=== PATIENT | male | born 1940 | race Caucasian/White ===

== ENCOUNTER 2018-08-30 23:43 | Inpatient (IN) | payer MEDICARE ==
[~2018-08-30] VITALS: Ht 172.7 cm; Wt 77.7 kg
[2018-08-31 00:01] LABS: BASOPHILS # (AUTO) 0.1 (0.0-0.1); BASOPHILS % 0.6 % (0.0-1.0); EOSINOPHILS # (AUTO) 0.6 (0.0-0.4); EOSINOPHILS % 4.3 % (0.0-6.0); HEMOGLOBIN 7.6 g/dL (14.0-18.0); LYMPHOCYTES # (AUTO) 3.5 (1.0-3.2); LYMPHOCYTES % 26.3 % (18.0-39.1); MEAN CORPUSCULAR HEMOGLOBIN 28.1 pg (28-32); MEAN CORPUSCULAR VOLUME 85.2 fL (81-99); MONOCYTES # (AUTO) 0.8 (0.2-0.8); MONOCYTES % 5.9 % (4.4-11.3); NEUTROPHILS # (AUTO) 8.4 (2.1-6.9); NEUTROPHILS % 62.5 % (38.7-80.0); PLATELET COUNT 395 x10e3/uL (140-360); RED CELL DISTRIBUTION WIDTH 16.3 % (11.7-14.4)
[2018-08-31] MEDS ORDERED: PANTOPRAZOLE 40 MG 10ML VIAL IV STA (01:17)
[2018-08-31] MEDS ORDERED: ACETAMINOPHEN 325 MG TAB PO STA (01:17)
[2018-08-31] MEDS ORDERED: PHYTONADIONE 10 MG/ML AMP SC ONE (01:30)
[2018-08-31] MEDS ORDERED: DIPHENHYDRAMINE HCL INJ 50 MG/ML VIAL IV ONE (01:30)
--- OUTSIDE RECORDS SUMMARY | 2018-08-31 01:38 | XMS REPORT | Clinical Summary ---
Author Author [facility] Address Unknown Phone Unavailable Care Team Providers Care Medical Surgical Tech Name Role Phone Jordan Kang MD PCP Allergies No Known Allergies Medications End Date Status Medication Sig Dispensed Refills Start Date Active donepezil (ARICEPT) 10 MG Take 10 mg by 0 tablet mouth nightly. Active memantine (NAMENDA) 10 MG Take 10 mg by 0 tablet mouth daily. Active atorvastatin (LIPITOR) 20 Take 20 mg by 0 MG tablet mouth daily. Default OP ins Active glimepiride (AMARYL) 1 MG Take 1 mg by 0 tablet mouth daily before breakfast. Active tamsulosin (FLOMAX) 0.4 Take 0.4 mg 0 mg capsule,extended by mouth release 24hr daily. Active aspirin (ECOTRIN) 81 MG Take 81 mg by 0 enteric coated tablet mouth daily. Active carBAMazepine (EPITOL) Take 200 mg 0 200 mg tablet by mouth 2 (two) times a day. Active levETIRAcetam (KEPPRA) Take 500 mg 0 500 MG tablet by mouth 2 (two) times a day. Active mirabegron 25 mg tablet Take 25 mg by 0 extended release 24 hr mouth every morning. Active metFORMIN (GLUCOPHAGE) Take 1,000 mg 0 09/17/ 1,000 mg tablet by mouth 2 8 (two) times a day with meals. Active clonIDINE (CATAPRES) 0.1 Take 0.1 mg 0 MG tablet by mouth every 8 (eight) hours as needed for high blood pressure (for BP 140/90). Active hydrALAZINE (APRESOLINE) Take 25 mg by 0 25 MG tablet mouth every 8 (eight) hours as needed (FOR BP). HOLD FOR SBP LESS THAN 110,HR LESS THAN 60 Active oxybutynin (DITROPAN) 5 Take 5 mg by 0 MG tablet mouth 2 (two) times a day. 09/09/2017 Discontinued sulfamethoxazole-trimetho Take 1 tablet 0 prim (BACTRIM DS) 800-160 by mouth 2 mg per tablet (two) times a day. 09/09/2017 Discontinued sertraline (ZOLOFT) 50 MG Take 50 mg by 0 tablet mouth daily. 09/09/2017 Discontinued metFORMIN (GLUCOPHAGE) Take 1,000 mg 0 1,000 mg tablet by mouth 2 (two) times a day with meals. 05/06/2018 Discontinued lisinopril Take 20 mg by 0 (PRINIVIL,ZESTRIL) 20 mg mouth daily. tablet 09/09/2017 Discontinued oxybutynin XL Take 15 mg by 0 (DITROPAN-XL) 5 MG 24 hr mouth daily. tablet 09/09/2017 Discontinued clonIDINE (CATAPRES-TTS) Place 1 patch 0 0.1 mg/24 hr on the skin once a week. 09/26/2017 Discontinued clonIDINE (CATAPRES) 0.1 Take 0.1 mg 0 MG tabletIndications: by mouth high blood pressure daily as needed for high blood pressure. 09/26/2017 Discontinued metFORMIN (GLUCOPHAGE) Take 500 mg 0 500 mg tablet by mouth 2 (two) times a day with meals. 10/29/2017 clonIDINE (CATAPRES) 0.1 Take 1 tablet 0 MG tablet (0.1 mg 8 total) by mouth every 6 (six) hours as needed for high blood pressure for up to 30 days. 10/29/2017 hydrALAZINE (APRESOLINE) Take 1 tablet 90 tablet 0 25 MG tablet (25 mg total) 8 by mouth every 8 (eight) hours for 30 days. 10/29/2017 ipratropium-albuterol Take 3 mL by 0 (DUO-NEB) 0.5-2.5 mg/mL nebulization 8 nebulizer every 6 (six) hours as needed for wheezing for up to 30 days. 11/06/2017 clindamycin (CLEOCIN) 150 Take 2 42 capsule 0 MG capsule capsules (300 8 mg total) by mouth 3 (three) times a day for 7 days. 12/31/2017 cephalexin (KEFLEX) 500 Take 1 0 MG capsule capsule (500 8 mg total) by mouth 2 (two) times a day for 7 days. 03/18/2018 finasteride (PROSCAR) 5 Take 1 tablet 30 tablet 0 mg tablet (5 mg total) 8 by mouth nightly for 30 days. 02/21/2018 amoxicillin-pot Take 1 tablet 0 clavulanate (AUGMENTIN) by mouth 2 8 875-125 mg per tablet (two) times a day for 5 days. 04/04/2018 liver oil-zinc oxide Apply 40 g 1 (DESITIN) ointment topically as 8 needed for irritation for up to 5 days. 06/06/2018 amLODIPine (NORVASC) 10 Take 1 tablet 30 tablet 0 mg tablet (10 mg total) 9 by mouth daily for 30 days. 05/08/2018 piperacillin-tazobactam Infuse 3.375 6 each 0 (ZOSYN) 3.375 gram in 50 g into a 9 mL Mini-Bag Plus venous catheter every 8 (eight) hours for 2 days. 05/31/2018 ciprofloxacin (CIPRO) 500 Take 1 tablet 14 tablet 0 MG tablet (500 mg 9 total) by mouth 2 (two) times a day for 7 days. Active Problems Problem Noted Date UTI (urinary tract infection) 05/04/2018 Acute cystitis without hematuria 05/02/2018 Acute metabolic encephalopathy 02/14/2018 Urinary retention due to benign prostatic hyperplasia 02/14/2018 Chronic suprapubic catheter 02/14/2018 Pyelonephritis due to Escherichia coli 02/13/2018 Pyelonephritis 02/12/2018 Closed fracture of lower end of left ulna with routine healing 11/03/2017 Weakness 09/26/2017 Chest pain, rule out acute myocardial infarction 09/09/2017 Hypertension 05/10/2017 Alzheimer disease 05/10/2017 Diabetes mellitus 05/10/2017 Transient cerebral ischemia 05/09/2017 Seizure 03/06/2017 Encounters Care Team Description Date Type Specialty Avery Tyler MD Urinary tract infection associated with catheterization of urinary tract, unspecified indwelling urinary catheter type, initial encounter (HCC) (Primary Dx) 05/24/2018 Emergency Emergency Medicine Gwyn Mustafa MD Yerramadha, Muralidhar Reddy, MD Neela, Rekha Srinivas, MD Acute cystitis without hematuria (Primary Dx); Acute encephalopathy; Essential hypertension 05/02/2018 [facility] Internal Medicine - Encounter 05/06/2018 05/02/2018 Travel Gwyn Mustafa MD Urinary obstruction (Primary Dx); Essential hypertension 04/14/2018 Emergency Emergency Medicine Shelton Ashley DO Cohn catheter problem, initial encounter (HCC) (Primary Dx) 04/11/2018 Emergency Emergency Medicine Turner Christiansen MD Urinary retention (Primary Dx); Irritant dermatitis 03/30/2018 Emergency Emergency Medicine - 03/31/2018 Shelton Ashley DO Yerramadha, Muralidhar Reddy, MD Pyelonephritis (Primary Dx); Urinary retention; Hypertension, uncontrolled 02/11/2018 [facility] Internal Medicine - Encounter 02/16/2018 Tanner Escamilla MD Yerramadha, Muralidhar Reddy, MD Weakness (Primary Dx); Fall, initial encounter; Urinary tract infection without hematuria, site unspecified; Abrasion of knee, unspecified laterality, initial encounter 12/21/2017 Emergency General Internal Medicine - 12/24/2017 Boyd Hernandez MD Laceration of left hand without foreign body, initial encounter (Primary Dx) 11/04/2017 Office Visit Orthopedic Surgery Garth Jiménez MA Closed fracture of distal end of left ulna with routine healing, unspecified fracture morphology, subsequent encounter (Primary Dx) 11/03/2017 Orders Only Sports Medicine Jennifer Rick MD Laceration of left hand without foreign body, subsequent encounter (Primary Dx); Wound dehiscence 10/30/2017 Emergency Emergency Medicine Agustín Sanchez, ECONOMIC RESEARCH ANALYSTHortenciaC Rodney Pete MD Al-Lahiq, Maha, MD Weakness (Primary Dx); Neuropathy; Late onset Alzheimer's disease with behavioral disturbance 09/26/2017 Hospital General Internal Medicine - Encounter 09/29/2017 Shelton Ashley DO Yerramadha, Muralidhar Reddy, MD Chest pain, rule out acute myocardial infarction (Primary Dx); Seizure; Transient cerebral ischemia, unspecified type; Essential hypertension; Late onset Alzheimer's disease with behavioral disturbance; Type 2 diabetes mellitus with diabetic autonomic neuropathy, with long-term current use of insulin 09/09/2017 Emergency General Internal Medicine - 09/11/2017 after 08/30/2017 Immunizations Name Dates Previously Given Next Due Tdap 12/21/2017 (Deferred: - per EMR pt recvd 07/02/2017), 07/02/2017 Family History Medical History Relation Name Comments Diabetes Father Alcohol abuse Mother Stroke Mother Relation Name Status Comments Father Mother Social History Date Tobacco Use Types Packs/Day Years Used Former Smoker Cigarettes 3 Smokeless Tobacco: Never Used Comments: Stopped late Alcohol Use Drinks/Week oz/Week Comments No Alcohol Habits Answer Date Recorded How often do you have a drink containing alcohol? Never 05/02/2018 How many drinks containing alcohol do you have on Not asked a typical day when you are drinking? How often do you have six or more drinks on one Not asked occasion? Sex Assigned at Date Recorded Not on file Industry Job Start Date Occupation Not on file Not on file Not on file Travel End Travel History Travel Start No recent travel history available. Last Filed Vital Signs Time Taken Vital Sign Reading 05/24/2018 3:29 PM [employer] Blood Pressure 189/86 05/24/2018 3:29 PM [employer] Pulse 76 05/24/2018 2:00 PM [employer] Temperature 36.3 C (97.3 F) 05/24/2018 3:29 PM [employer] Respiratory Rate 15 05/24/2018 3:29 PM [employer] Oxygen Saturation 99% - Inhaled Oxygen - Concentration 05/24/2018 1:58 PM [employer] Weight 87.5 kg (193 lb) 05/24/2018 1:58 PM [employer] Height 193 cm (6' 4") 05/24/2018 1:58 PM [employer] Body Mass Index 23.49 Plan of Treatment Health Maintenance Due Date Last Done Comments DIABETIC RETINAL EYE EXAM 1940 DIABETIC FOOT EXAM 02/16/1948 URINE MICROALBUMIN 02/16/1948 SHINGLES VACCINES (#1) 02/16/1988 65+ PNEUMOCOCCAL VACCINE 2003 (1 of 2 - PCV13) PNEUMOCOCCAL 2003 POLYSACCHARIDE VACCINE AGE 65 AND OVER INFLUENZA VACCINE 11/17/2018 Procedures Comments Procedure Name Priority Date/Time Associated Diagnosis GRAM STAIN Routine 05/24/2018 2:42 PM [employer] URINE CULTURE Routine 05/24/2018 2:42 PM [employer] URINALYSIS SCREEN AND Routine 05/24/2018 MICROSCOPY, WITH REFLEX 2:20 PM [employer] TO CULTURE POC GLUCOSE Routine 05/06/2018 4:53 PM [employer] POC GLUCOSE Routine 05/06/2018 11:32 AM [employer] POC GLUCOSE Routine 05/06/2018 6:08 AM [employer] ESTIMATED GFR Routine 05/06/2018 5:58 AM [employer] HC COMPLETE BLD COUNT Routine 05/06/2018 W/AUTO DIFF 5:58 AM [employer] BASIC METABOLIC PANEL Routine 05/06/2018 5:58 AM [employer] POC GLUCOSE Routine 05/05/2018 9:03 PM [employer] POC GLUCOSE Routine 05/05/2018 5:44 PM [employer] CLOSTRIDIUM DIFFICILE Routine 05/05/2018 TOXIN 2:55 PM [employer] POC GLUCOSE Routine 05/05/2018 11:21 AM [employer] POC GLUCOSE Routine 05/05/2018 6:33 AM [employer] ECHOCARDIOGRAM 2D Routine 05/04/2018 COMPLETE W MMODE SPECTRAL 5:36 PM [employer] COLOR DOPPLER ([id number]) POC GLUCOSE Routine 05/04/2018 3:29 PM [employer] POC GLUCOSE Routine 05/04/2018 11:39 AM [employer] POC GLUCOSE Routine 05/04/2018 6:10 AM [employer] ESTIMATED GFR Routine 05/04/2018 4:52 AM [employer] HC COMPLETE BLD COUNT Routine 05/04/2018 W/AUTO DIFF 4:52 AM [employer] BASIC METABOLIC PANEL Routine 05/04/2018 4:52 AM [employer] POC GLUCOSE Routine 05/03/2018 5:24 PM [employer] POC GLUCOSE Routine 05/03/2018 12:43 PM [employer] TROPONIN Timed 05/02/2018 10:30 PM [employer] GRAM STAIN Routine 05/02/2018 6:59 PM [employer] URINE CULTURE Routine 05/02/2018 6:59 PM [employer] URINALYSIS SCREEN AND Routine 05/02/2018 MICROSCOPY, WITH REFLEX 6:40 PM [employer] TO CULTURE TROPONIN Timed 05/02/2018 5:28 PM [employer] XR CHEST 1 VW STAT 05/02/2018 4:11 PM [employer] ECG ED PRELIMINARY Routine 05/02/2018 INTERPRETATION 2:59 PM [employer] ESTIMATED GFR STAT 05/02/2018 2:05 PM [employer] TROPONIN STAT 05/02/2018 2:05 PM [employer] CREATINE KINASE, TOTAL STAT 05/02/2018 (CPK) 2:05 PM [employer] COMPREHENSIVE METABOLIC STAT 05/02/2018 PANEL 2:05 PM [employer] PROTHROMBIN TIME WITH INR STAT 05/02/2018 2:05 PM [employer] HC COMPLETE BLD COUNT STAT 05/02/2018 W/AUTO DIFF 2:05 PM [employer] ECG 12-LEAD STAT 05/02/2018 1:50 PM [employer] URINALYSIS SCREEN AND STAT 04/14/2018 MICROSCOPY, WITH REFLEX 5:30 PM [employer] TO CULTURE URINE CULTURE STAT 04/14/2018 5:30 PM [employer] CT ABDOMEN PELVIS W STAT 04/14/2018 CONTRAST 4:59 PM [employer] URINALYSIS SCREEN AND STAT 04/14/2018 MICROSCOPY, WITH REFLEX 2:40 PM [employer] TO CULTURE GRAM STAIN STAT 04/14/2018 2:40 PM [employer] URINE CULTURE STAT 04/14/2018 2:40 PM [employer] ESTIMATED GFR STAT 04/14/2018 2:37 PM [employer] HEPATIC FUNCTION PANEL STAT 04/14/2018 2:37 PM [employer] LIPASE LEVEL STAT 04/14/2018 2:37 PM [employer] BASIC METABOLIC PANEL STAT 04/14/2018 2:37 PM [employer] HC COMPLETE BLD COUNT STAT 04/14/2018 W/AUTO DIFF 2:37 PM [employer] POC GLUCOSE Routine 04/14/2018 1:54 PM [employer] URINALYSIS SCREEN AND Routine 03/30/2018 MICROSCOPY, WITH REFLEX 10:09 PM [employer] TO CULTURE GRAM STAIN Routine 03/30/2018 10:09 PM [employer] URINE CULTURE Routine 03/30/2018 10:09 PM [employer] ESTIMATED GFR STAT 03/30/2018 10:01 PM [employer] COMPREHENSIVE METABOLIC STAT 03/30/2018 PANEL 10:01 PM [employer] CBC HEMOGRAM STAT 03/30/2018 10:01 PM [employer] POC GLUCOSE Routine 02/16/2018 4:45 PM CDT POC GLUCOSE Routine 02/16/2018 11:42 AM CDT POC GLUCOSE Routine 02/16/2018 5:49 AM CDT ESTIMATED GFR Routine 02/16/2018 5:42 AM CDT HC COMPLETE BLD COUNT Routine 02/16/2018 W/AUTO DIFF 5:42 AM CDT BASIC METABOLIC PANEL Routine 02/16/2018 5:42 AM CDT POC GLUCOSE Routine 2018 8:06 PM CDT POC GLUCOSE Routine 2018 4:16 PM CDT POC GLUCOSE Routine 2018 11:32 AM CDT POC GLUCOSE Routine 2018 5:55 AM CDT ESTIMATED GFR Routine 2018 5:35 AM CDT HC COMPLETE BLD COUNT Routine 2018 W/AUTO DIFF 5:35 AM CDT BASIC METABOLIC PANEL Routine 2018 5:35 AM CDT POC GLUCOSE Routine 02/14/2018 7:23 PM CDT POC GLUCOSE Routine 02/14/2018 4:39 PM CDT POC GLUCOSE Routine 02/14/2018 12:00 PM CDT POC GLUCOSE Routine 02/14/2018 7:14 AM CDT ESTIMATED GFR Routine 02/14/2018 5:49 AM CDT HC COMPLETE BLD COUNT Routine 02/14/2018 W/AUTO DIFF 5:49 AM CDT BASIC METABOLIC PANEL Routine 02/14/2018 5:49 AM CDT POC GLUCOSE Routine 02/13/2018 9:03 PM CDT POC GLUCOSE Routine 02/13/2018 4:30 PM CDT POC GLUCOSE Routine 02/13/2018 11:44 AM CDT ESTIMATED GFR Routine 02/13/2018 6:52 AM CDT HC COMPLETE BLD COUNT Routine 02/13/2018 W/AUTO DIFF 6:52 AM CDT BASIC METABOLIC PANEL Routine 02/13/2018 6:52 AM CDT POC GLUCOSE Routine 02/13/2018 5:58 AM CDT POC GLUCOSE Routine 02/12/2018 7:52 PM CDT POC GLUCOSE Routine 02/12/2018 4:34 PM CDT LACTIC ACID LEVEL, SEPSIS Timed 02/12/2018 - NOW AND REPEAT 2X EVERY 12:30 PM CDT 3 HOURS POC GLUCOSE Routine 02/12/2018 11:58 AM CDT ESTIMATED GFR Routine 02/12/2018 9:20 AM CDT COMPREHENSIVE METABOLIC Routine 02/12/2018 PANEL 9:20 AM CDT HC COMPLETE BLD COUNT Routine 02/12/2018 W/AUTO DIFF 9:20 AM CDT LACTIC ACID LEVEL, SEPSIS Timed 02/12/2018 - NOW AND REPEAT 2X EVERY 9:20 AM CDT 3 HOURS POC GLUCOSE Routine 02/12/2018 6:[address] ABDOMEN PELVIS W STAT 02/12/2018 CONTRAST 12:59 AM CDT ECG 12-LEAD STAT 02/12/2018 12:29 AM CDT ESTIMATED GFR STAT 02/12/2018 12:08 AM CDT LACTIC ACID LEVEL, SEPSIS STAT 02/12/2018 - NOW AND REPEAT 2X EVERY 12:08 AM CDT 3 HOURS LIPASE LEVEL STAT 02/12/2018 12:08 AM CDT COMPREHENSIVE METABOLIC STAT 02/12/2018 PANEL 12:08 AM CDT PARTIAL THROMBOPLASTIN STAT 02/12/2018 TIME (PTT) 12:08 AM CDT PROTHROMBIN TIME WITH INR STAT 02/12/2018 12:08 AM CDT HC COMPLETE BLD COUNT STAT 02/12/2018 W/AUTO DIFF 12:08 AM CDT URINALYSIS SCREEN AND STAT 02/12/2018 MICROSCOPY, WITH REFLEX 12:06 AM CDT TO CULTURE GRAM STAIN STAT 02/12/2018 12:06 AM CDT URINE CULTURE STAT 02/12/2018 12:06 AM CDT POC GLUCOSE Routine 12/24/2017 4:25 PM CDT POC GLUCOSE Routine 12/24/2017 11:02 AM CDT POC GLUCOSE Routine 12/24/2017 5:34 AM CDT POC GLUCOSE Routine 12/23/2017 7:52 PM CDT POC GLUCOSE Routine 12/23/2017 4:29 PM CDT POC GLUCOSE Routine 12/23/2017 11:37 AM CDT POC GLUCOSE Routine 12/23/2017 6:20 AM CDT ZZESTIMATED GFR Routine 12/23/2017 5:06 AM CDT HC COMPLETE BLD COUNT Routine 12/23/2017 W/AUTO DIFF 5:06 AM CDT BASIC METABOLIC PANEL Routine 12/23/2017 5:06 AM CDT POC GLUCOSE Routine 12/22/2017 8:34 PM CDT POC GLUCOSE Routine 12/22/2017 4:34 PM CDT POC GLUCOSE Routine 12/22/2017 11:32 AM CDT POC GLUCOSE Routine 12/22/2017 6:19 AM CDT ZZESTIMATED GFR Routine 12/22/2017 5:23 AM CDT COMPREHENSIVE METABOLIC Routine 12/22/2017 PANEL 5:23 AM CDT HC COMPLETE BLD COUNT Routine 12/22/2017 W/AUTO DIFF 5:23 AM CDT POC GLUCOSE Routine 12/21/2017 7:33 PM CDT POC GLUCOSE Routine 12/21/2017 4:03 PM CDT POC GLUCOSE Routine 12/21/2017 11:49 AM CDT TROPONIN Timed 12/21/2017 10:11 AM CDT XR KNEE 4+ VW RIGHT STAT 12/21/2017 8:25 AM CDT XR KNEE 4+ VW LEFT STAT 12/21/2017 8:25 AM CDT URINALYSIS SCREEN AND Routine 12/21/2017 MICROSCOPY, WITH REFLEX 7:10 AM CDT TO CULTURE URINE CULTURE Routine 12/21/2017 7:10 AM CDT GRAM STAIN Routine 12/21/2017 7:10 AM CDT TROPONIN STAT 12/21/2017 6:55 AM CDT CREATINE KINASE, TOTAL STAT 12/21/2017 (CPK) 6:55 AM CDT ZZESTIMATED GFR STAT 12/21/2017 6:55 AM CDT B NATRIURETIC PEPTIDE STAT 12/21/2017 6:55 AM CDT T4, FREE STAT 12/21/2017 6:55 AM CDT THYROID STIMULATING STAT 12/21/2017 HORMONE 6:55 AM CDT PARTIAL THROMBOPLASTIN STAT 12/21/2017 TIME (PTT) 6:55 AM CDT PROTHROMBIN TIME WITH INR STAT 12/21/2017 6:55 AM CDT COMPREHENSIVE METABOLIC STAT 12/21/2017 PANEL 6:55 AM CDT HC COMPLETE BLD COUNT STAT 12/21/2017 W/AUTO DIFF 6:55 AM CDT ECG 12-LEAD STAT 12/21/2017 6:44 AM CDT ECG ED PRELIMINARY Routine 12/21/2017 INTERPRETATION 6:42 AM CDT ZZESTIMATED GFR STAT 10/30/2017 3:45 PM CDT COMPREHENSIVE METABOLIC STAT 10/30/2017 PANEL 3:45 PM CDT HC COMPLETE BLD COUNT STAT 10/30/2017 W/AUTO DIFF 3:37 PM CDT XR HAND 3+ VW LEFT STAT 10/30/2017 3:08 PM CDT SUTURE REMOVAL Routine 10/30/2017 2:09 PM CDT ZZESTIMATED GFR Routine 09/27/2017 5:37 AM CDT THYROID STIMULATING Routine 09/27/2017 HORMONE 5:37 AM CDT HEMOGLOBIN A1C Routine 09/27/2017 5:37 AM CDT COMPREHENSIVE METABOLIC Routine 09/27/2017 PANEL 5:37 AM CDT HC COMPLETE BLD COUNT Routine 09/27/2017 W/AUTO DIFF 5:37 AM CDT VITAMIN B6 LEVEL, PLASMA Routine 09/26/2017 6:47 PM CDT VITAMIN B1 LEVEL, WHOLE Routine 09/26/2017 BLOOD 6:47 PM CDT VITAMIN B12 LEVEL Routine 09/26/2017 6:47 PM CDT ECG 12-LEAD STAT 09/26/2017 2:[address] HEAD WO CONTRAST STAT 09/26/2017 1:51 PM CDT ZZESTIMATED GFR STAT 09/26/2017 1:33 PM CDT B NATRIURETIC PEPTIDE STAT 09/26/2017 1:33 PM CDT TROPONIN STAT 09/26/2017 1:33 PM CDT COMPREHENSIVE METABOLIC STAT 09/26/2017 PANEL 1:33 PM CDT URINALYSIS SCREEN AND STAT 09/26/2017 MICROSCOPY, WITH REFLEX 1:33 PM CDT TO CULTURE HC COMPLETE BLD COUNT STAT 09/26/2017 W/AUTO DIFF 1:33 PM CDT POC GLUCOSE Routine 09/11/2017 11:20 AM CDT ZZESTIMATED GFR Routine 09/11/2017 6:43 AM CDT BASIC METABOLIC PANEL Routine 09/11/2017 6:43 AM CDT HC COMPLETE BLD COUNT Routine 09/11/2017 W/AUTO DIFF 6:43 AM CDT POC GLUCOSE Routine 09/11/2017 5:44 AM CDT POC GLUCOSE Routine 09/10/2017 8:49 PM CDT POC GLUCOSE Routine 09/10/2017 4:08 PM CDT POC GLUCOSE Routine 09/10/2017 11:07 AM CDT POC GLUCOSE Routine 09/10/2017 7:31 AM CDT TROPONIN Timed 09/09/2017 11:30 PM CDT XR CHEST 1 VW PORTABLE STAT 09/09/2017 8:15 PM CDT ZZESTIMATED GFR STAT 09/09/2017 7:50 PM CDT B NATRIURETIC PEPTIDE STAT 09/09/2017 7:50 PM CDT TROPONIN STAT 09/09/2017 7:50 PM CDT CREATINE KINASE, TOTAL STAT 09/09/2017 (CPK) 7:50 PM CDT BASIC METABOLIC PANEL STAT 09/09/2017 7:50 PM CDT HC COMPLETE BLD COUNT STAT 09/09/2017 W/AUTO DIFF 7:50 PM CDT ECG 12-LEAD STAT 09/09/2017 7:46 PM CDT ECG 12-LEAD STAT 09/09/2017 7:45 PM CDT after 08/30/2017 Results * Gram stain (05/24/2018 2:42 PM [employer]) Only the most recent of 6 results within the time period is included. Gram stain result Few WBC's [facility] No organisms seen [facility]OSP[facility] Comment: Specimen Information Specimen Source: Urine Specimen Site: Clean catch Specimen Urine Performing Organization Address City/State/Zipcode Phone Number [facility] DEPARTMENT OF [address] [place] [address] PATHOLOGY AND GENOMIC MEDICINE [address] * Urine culture (05/24/2018 2:42 PM [employer]) Only the most recent of 7 results within the time period is included. Urine culture isolate Escherichia coli [facility] 10-5 cfu/ml [facility] The performance characteristics of this assay on this isolate were validated by the Microbiology Laboratory at [facility].This source has not been approved by the U.S. Food and Drug Administration.The results are not intended to be used as the sole means for clinical diagnosis or patient management.The Microbiology Laboratory is authorized under the clinical Laboratory Improvement Amendments of 1988 (CLIA-88) to perform high complexity testing. (A) Comment: Specimen Information Specimen Source: Urine Specimen Site: Clean catch Specimen Urine Antibiotic Method Susceptibility Organism Ampicillin BRODIE 4 mcg/mL: Susceptible Escherichia coli Amoxicillin/Clavulanate BRODIE 8/4 mcg/mL: Susceptible Escherichia coli Amikacin BRODIE <=4 mcg/mL: Susceptible Escherichia coli Aztreonam BRODIE <=1 mcg/mL: Susceptible Escherichia coli Ceftazidime BRODIE <=0.5 mcg/mL: Susceptible Escherichia coli Ciprofloxacin BRODIE >2 mcg/mL: Resistant Escherichia coli Ceftriaxone BRODIE <=0.5 mcg/mL: Susceptible Escherichia coli Cefuroxime Sodium BRODIE 16 mcg/mL: Resistant Escherichia coli Cefazolin BRODIE 2 mcg/mL: Susceptible Escherichia coli Cefepime BRODIE <=0.5 mcg/mL: Susceptible Escherichia coli Nitrofurantoin BRODIE <=16 mcg/mL: Susceptible Escherichia coli Cefoxitin BRODIE 16 mcg/mL: Resistant Escherichia coli Gentamicin BRODIE <=1 mcg/mL: Susceptible Escherichia coli Imipenem BRODIE <=0.25 mcg/mL: Susceptible Escherichia coli Levofloxacin BRODIE >4 mcg/mL: Resistant Escherichia coli Meropenem BRODIE <=0.125 mcg/mL: Susceptible Escherichia coli Tobramycin BRODIE 1 mcg/mL: Susceptible Escherichia coli Ampicillin/Sulbactam BRODIE 8/4 mcg/mL: Susceptible Escherichia coli Trimethoprim/Sulfamethoxazole BRODIE <=0.5/9.5 mcg/mL: Susceptible Escherichia coli Tetracycline BRODIE 2 mcg/mL: Susceptible Escherichia coli Piperacillin/Tazobactam BRODIE 4/4 mcg/mL: Susceptible Escherichia coli Ertapenem BRODIE <=0.125 mcg/mL: Susceptible Escherichia coli Tigecycline BRODIE 1 mcg/mL: Susceptible Escherichia coli Performing Organization Address City/State/Zipcode Phone Number [facility] DEPARTMENT OF [address] [place] [id number] PATHOLOGY AND GENOMIC MEDICINE [address] * Urinalysis screen and microscopy, with reflex to culture (05/24/2018 2:20 PM [employer]) Only the most recent of 8 results within the time period is included. Specimen site Clean catch [facility] Color, UA Yellow [facility] Appearance, UA Cloudy [facility] Specific gravity, UA 1.015 1.001 - 1.035 [facility] pH, UA 5.0 5.0 - 8.5 [facility] Protein, UA 3+ (A) Negative [facility] Glucose, UA Negative Negative [facility] Ketones, UA Negative Negative [facility] Bilirubin, UA Negative Negative [facility] Blood, UA Moderate (A) Negative [facility] Nitrite, UA Negative Negative [facility] Urobilinogen, UA Negative <2.0 [facility] [facility] Leukocyte esterase, UA Moderate (A) Negative [facility] Epithelial cells, UA Few /HPF [facility] WBC, UA 61-80 (H) 0 - 1 /HPF [facility] RBC, UA 61-80 (H) 0 - 5 /HPF [facility] Bacteria, UA Trace None seen [facility] WBC clumps, UA Few (A) [facility] Yeast, UA None seen [facility] Yeast with pseudohyphae, None seen [facility] Hyaline casts, UA 3-5 /LPF [facility] Specimen Urine Performing Organization Address [facility] Phone Number [facility] DEPARTMENT [id number] [place] [address] [place] [address] PATHOLOGY AND GENOMIC MEDICINE [address] * POC glucose (05/06/2018 4:53 PM ELECTRIC [employer]OR [employer] ASSEMBLER) Only the most recent of 52 results within the time period is included. POC glucose 165 (H) 65 - 99 mg/dL [facility] Comment: [facility] Meter ID: [id number] Hearing Aid Repair Technician: Quintin Clark Performing Organization Address [facility] Phone Number [facility] DEPARTMENT [address] [place] [address] PATHOLOGY AND GENOMIC MEDICINE [address] * Estimated GFR (05/06/2018 5:58 AM ELECTRIC MOTOR [employer] ASSEMBLER) Only the most recent of 11 results within the time period is included. Estimated GFR 63 mL/min/1.73 m2 [facility] Comment: [facility] CatergoryUnitsInte rpretation G1 >=90 Normal or high G2 60-89Mildly decreased [id number] Mildly to moderately decreased [id number] Moderately to severely decreased G4 15-29Severely decreased G5 <15Kidney failure The eGFR was calculated using the Chronic Kidney Disease Epidemiology Collaboration (CKD-EPI) equation. Interpretation is based on recommendations of the National Kidney Foundation-Kidney Disease Outcomes Quality Initiative (NKF-KDOQI) published in 2014. Specimen Plasma specimen Performing Organization Address City/State/Zipcode Phone Number [facility] [address] [id number] [place] [address] [place] [address] PATHOLOGY AND GENOMIC MEDICINE [address] [place] [address] [facility] * CBC with platelet and differential (05/06/2018 5:58 AM ELECTRIC [employer]OR [employer] AS[employer]BLER) Only the most recent of 18 results within the time period is included. WBC 10.58 4.50 - 11.00 k/uL [facility] RBC 3.38 (L) 4.40 - 6.00 m/uL [facility] HGB 9.9 (L) 14.0 - 18.0 g/dL [facility] HCT 30.5 (L) 41.0 - 51.0 % [facility] MCV 90.2 82.0 - 100.0 fL [facility] MCH 29.3 27.0 - 34.0 pg [facility] MCHC 32.5 31.0 - 37.0 g/dL [facility] RDW - SD 45.2 37.0 - 55.0 fL [facility] MPV 9.5 8.8 - 13.2 fL [facility] Platelet count 302 150 - 400 k/uL [facility] Nucleated RBC 0.00 /100 WBC [facility] Neutrophils 62.9 39.0 - 69.0 % [facility] Lymphocytes 22.5 (L) 25.0 - 45.0 % [facility] Monocytes 7.8 0.0 - 10.0 % [facility] Eosinophils 5.8 (H) 0.0 - 5.0 % [facility] Basophils 0.5 0.0 - 1.0 % [facility] Specimen Blood Performing Organization Address City/[facility]/Zipcode Phone Number [facility] DEPARTMENT [address] [place] [address] PATHOLOGY AND GENOMIC MEDICINE [facility] [place] [address] [place] [address] * Basic metabolic panel (05/06/2018 5:58 AM ELECTRIC MOTOR [employer] ASSEMBLER) Only the most recent of 10 results within the time period is included. Sodium 141 135 - 148 mEq/L [facility] Potassium 4.1 3.5 - 5.0 mEq/L [facility] Chloride 104 98 - 112 mEq/L [facility] CO2 24 24 - 31 mEq/L [facility] Anion gap 13@ANIO 7 - 15 mEq/L [facility] BUN 20 8 - 23 mg/dL [facility] Creatinine 1.10 0.70 - 1.20 mg/dL [facility] Glucose 127 (H) 65 - 99 mg/dL [facility] Calcium 9.1 8.8 - 10.2 mg/dL [facility] Specimen Plasma specimen Performing Organization Address City/[facility] Phone Number [facility] [id number] [place] [address] [place] [address] PATHOLOGY AND GENOMIC MEDICINE [address] * C difficile toxin (05/05/2018 2:55 PM ELECTRIC [employer]OR [employer] ASSEMBLER) Clostridium difficile No Clostridium difficle toxin [facility] Comment: Specimen Information Specimen Source: Stool Specimen Site: Nonpreserved Specimen Stool - Nonpreserved Performing Organization Address City/[facility] Phone Number [facility] [place] [address] PATHOLOGY AND GENOMIC MEDICINE [address] * Echocardiogram complete w contrast and 3D if needed (05/04/2018 5:36 PM [employer]LECT[employer]ER) Velocity Ratio (V1/V2) 0.75 m/s [facility] IVS,d 0.93 cm [facility] Ao root annulus 3.83 cm [facility] EF 57.68 % [facility] LVPWD,d 0.98 cm [facility] AoV Mean PG 4.97 mmHg [facility] AV LVOT peak gradient 5.49 mmHg [facility] MV valve area p 1/2 5.33 cm2 [facility] method E/A ratio 0.43 [facility] E wave decelartion time 174.68 msec [facility] LVOT Diam,S 2.32 cm [facility] LVOT area 4.23 cm2 [facility] LVOT Vmax 1.17 m/s [facility] LVOT VTI 0.22 m [facility] AoV Peak PG 9.78 mmHg [facility] MV Peak E Edilson 0.43 m/s [facility] MV stenosis pressure 1/2 41.31 ms [facility] time MV Peak A Edilson 1.00 m/s [facility] LV Vol,s A2C 46.91 mL [facility] LV Vol,d A2C 110.90 mL [facility] AoV Area, Vmax 3.17 cm2 [facility] AoV Area, VTI 3.34 cm2 [facility] AoV Vmax 1.56 m/s [facility] LV,d 4.76 cm [facility] LV,s 3.31 cm [facility] LV Vol,d A4C 115.49 ml [facility] LV Vol,s A4C 42.04 ml [facility] TR Vpeak 2.61 mm/s [facility] MV E A ratio 0.43 [facility] TR pk grad 23 mmHg [facility] LV SYS VOL 44.62 ml [facility] LV ARCHULETA VOL 105.44 ml [facility] LA Vol MOD A4C 41.96 ml [facility] LV SV Teich 2D 60.82 ml [facility] LVOT SI 42.74 ml/m2 [facility] AoV Cusp sep 2.23 [facility] AoV Vmn 1.04 [facility] IVS s 2D 1.25 [facility] LA Ao Ratio Mmode 0.85 [facility] PV AT 83.04 msec [facility] AoV VTI 0.28 m [facility] LV EF,A2C 57.70 % [facility] LV EF,A4C 63.60 % [facility] LV EF,BP 60.08 % [facility] Mathew [place],d A2C 7.88 cm [facility] Mathew [place],d A4C 8.47 cm [facility] Mathew [place],s A2C 5.75 cm [facility] Mathew [place],s A4C 6.58 cm [facility] LV SV,A2C 63.99 % [facility] LV SV,A4C 73.45 % [facility] LV Vol,d BP 117.03 ml [facility] LV Vol,s BP 46.72 nl [facility] LVOT Vmn 0.81 [facility] Pt Size 190.50 [facility] Pt Wt 88.45 [facility] LVOT mean grad 3.01 mmHg [facility] LVPW s PLAX 1.43 cm [facility] MV Decel slope 2.44 m/s2 [facility] LA volume 46.00 cm3 [facility] LA Area d A4C 42 cm2 [facility] RVSP (TR) 27.53 mmHg [facility] RA pressure 5.00 mmHg [facility] RVSP 27.53 mmHg [facility] Aortic Root 3.80 cm [facility] OH End Archuleta Grad 4.31 [facility] OH End Diat Edilson 1.04 [facility] D E excurs 1.10 [facility] E f slope 0.03 [facility] E prime lat 0.09 [facility] E maral sept 0.06 [facility] PV acc T slope 11.70 [facility] Narrative Performed At [facility] Left ventricular systolic function is normal. Left Ventricular ejection fraction is 60 - 65%. Spectral Doppler shows impaired relaxation pattern of left ventricular diastolic filling. Normal pulmonary artery systolic pressure. RA pressure is normal. Known PFO. Performing Organization Address City/[facility]/Zipcode Phone Number [employer] [address] [place] [address] * Troponin (05/02/2018 10:30 PM ELECT[employer]SEMBLER) Only the most recent of 8 results within the time period is included. Troponin <0.300 0.000 - 0.300 ng/mL [facility] Comment: [facility] 0.30 - 1.49 ng/mlMay indicate increased risk of acute coronary syndrome. >=1.5 ng/ml Consistent with acute myocardial infarction. The diagnostic value of a single normal or non-diagnostic result is questionable.Serial samples at 2-6 hour intervals are required to rule out acute myocardial injury. Specimen Plasma specimen Performing Organization Address City/[facility]/Zipcode [place] [address] [place] [address] PATHOLOGY AND GENOMIC MEDICINE [facility] [place] [id number] [place] [address] [place] [address] [facility] * XR Chest 1 Vw (05/02/2018 4:11 PM ELECTRIC [employer]OR [employer] ASSEMBLER) Narrative Performed At EXAMINATION:XR CHEST 1 VW [facility] CLINICAL HISTORY:Chest pain XR CHEST 1 VWimages are submitted COMPARISON:August 2017 FINDINGS: The cardiac silhouette is normal in size. The pulmonary vasculature is within normal limits. The lung zones have no focal area of consolidation. There is no pleural effusion or pneumothorax. IMPRESSION: 1. There is no acute cardiopulmonary disease. [id number] Procedure Note Hm Interface, Radiology Results Incoming - 05/02/2018 4:16 PM ELECTRIC [employer]OR [employer] ASSEMBLER EXAMINATION: XR CHEST 1 VW CLINICAL HISTORY: Chest pain XR CHEST 1 VW images are submitted COMPARISON: August 2017 FINDINGS: The cardiac silhouette is normal in size. The pulmonary vasculature is within normal limits. The lung zones have no focal area of consolidation. There is no pleural effusion or pneumothorax. IMPRESSION: 1. There is no acute cardiopulmonary disease. [id number] Performing Organization Address City/State/Zipcode Phone Number [facility] [address] [place] [address] * ECG ED Preliminary Interpretation - Not an Order (05/02/2018 2:59 PM ELECTRIC MOTOR [employer] ASSEMBLER) Only the most recent of 2 results within the time period is included. Narrative Performed At Gwyn Mustafa MD 05/02/20188:50 PM ECG ED Preliminary Interpretation - Not an Order Performed by: Gwyn Mustafa MD Authorized by: Gwyn Mustafa MD ECG reviewed by ED Physician in the absence of a guide dog mobility instructor: yes Interpretation: Interpretation: abnormal Rate: ECG rate:81 ECG rate assessment: normal Rhythm: Rhythm: A-V block QRS: QRS axis:Normal Conduction: Conduction: abnormal Abnormal conduction: 1st degree ST segments: ST segments:Non-specific T waves: T waves: inverted Inverted:I, aVL and V6 * Prothrombin time with INR (05/02/2018 2:05 PM ELECT[employer]IC [employer]OR [employer] ASSEMBLER) Only the most recent of 3 results within the time period is included. Prothrombin time 13.0 11.5 - 14.5 sec [facility] INR 1.0 [facility] Comment: [facility] The International Normalized Ratio (INR) is a therapeutic monitoring tool for patients who are stable on oral anticoagulant therapy. An INR of 2.0-3.0 is suggested for deep vein thrombosis/pulmonary embolism. Specimen Blood Performing Organization Address [facility] Phone Number [facility] [place] [id number] [place] [address] [place] [address] PATHOLOGY AND GENOMIC MEDICINE [address] * Creatine kinase, total (CPK) (05/02/2018 2:05 PM ELECT[employer]IC MOTOR [employer] ASSEMBLER) Only the most recent of 3 results within the time period is included. Creatine kinase 60 39 - 308 U/L [facility] Specimen Plasma specimen Performing Organization Address [facility] Phone Number [facility] [address] [place] [address] PATHOLOGY AND GENOMIC MEDICINE [address] * Comprehensive metabolic panel (05/02/2018 2:05 PM ELECTRIC MOTOR W[employer] ASSEMBLER) Only the most recent of 9 results within the time period is included. Sodium 135 135 - 148 mEq/L [facility] Potassium 4.3 3.5 - 5.0 mEq/L [facility] Chloride 93 (L) 98 - 112 mEq/L [facility] CO2 27 24 - 31 mEq/L [facility] Anion gap 15@ANIO 7 - 15 mEq/L [facility] BUN 15 8 - 23 mg/dL [facility] Creatinine 0.80 0.70 - 1.20 mg/dL [facility] Glucose 334 (H) 65 - 99 mg/dL [facility] Calcium 10.2 8.8 - 10.2 mg/dL [facility] Protein 7.4 6.3 - 8.3 g/dL [facility] Comment: [facility] [place] 4.6-7.0 g/dL 1 week 4.4-7.6 g/dL 7 months-1year 5.1-7.3 g/dL 1-2 years5.6-7 .5 g/dL >3 years6.0-8 .0 g/dL 18-150 6.3-8.3 g/dL Albumin 4.4 3.5 - 5.0 g/dL [facility] A/G ratio 1.5 0.7 - 3.8 [facility] Alkaline phosphatase 132 (H) 40 - 129 U/L [facility] AST 15 10 - 50 U/L [facility] ALT 16 5 - 50 U/L [facility] Total bilirubin 0.3 0.0 - 1.2 mg/dL [facility] Specimen Plasma specimen Performing Organization Address [facility] Phone Number [facility] [address]MENT [place] [id number] [place] [address] [place] [address] PATHOLOGY AND GENOMIC MEDICINE [facility] [place] [address] [place] [address] [facility] * ECG 12 lead (05/02/2018 1:50 PM ELECTRIC MOTOR WINDERS ASSEMBLER) Only the most recent of 6 results within the time period is included. Ventricular rate 81 [facility] Atrial rate 81 [facility] OH interval 290 [facility] QRSD interval 90 [facility] QT interval 352 [facility] QTC interval 408 [facility] P axis 1 104 [facility] QRS axis 1 -26 [facility] T wave axis 137 [facility] EKG impression Sinus rhythm with 1st degree [facility] AV block with premature atrial complexes-Left ventricular hypertrophy with repolarization abnormality-Abnormal ECG-In automated comparison with ECG of 12-FEB-2018 00:29,-premature atrial complexes are now present- Narrative Performed At Performing Organization Address [facility] Phone Number [facility] [address] [place] [address] * CT Abdomen Pelvis W Contrast (04/14/2018 4:59 PM ELECTRIC MOTOR WINDERS ASSEMBLER) Only the most recent of 2 results within the time period is included. Narrative Performed At EXAMINATION:CT ABDOMEN PELVIS W CONTRAST [facility] CLINICAL HISTORY: 78 yearsMale lower abd paingroin pain TECHNIQUE: Multiple axial images of the abdomen and pelvis were obtained following intravenous administration of iodinated contrast. Sagittal and coronal computerized reformatted images were also obtained. CT imaging was performed with iterative reconstruction techniques and/or automated exposure control to reduce radiation dose. COMPARISON: February 12, 2018: FINDINGS: The liver and spleen appear normal in size they are homogeneous in texture. The gallbladder and pancreas appear within normal limits. The left adrenal gland demonstrates thickening. The kidneys demonstrate nonobstructing bilateral intrarenal calculi the largest in the 2 to 3 mm range on the left. There are several cysts on the right the largest in the posterior upper pole which is an exophytic cyst measuring approximately 10 to 11 cm in maximum dimension. The right ureter is dilated distally to the level of the bladder. The bladder is decompressed by a catheter. The findings are similar to previous. The prostate appears enlarged. There is thickening of the bladder wall diffusely. The left ureter is also dilated no stone is identified. The findings are similar to the patient's prior examination from February 12, 2018. The appendix appears normal. There are no inflammatory changes identified involving bowel. There is wedging of the L3 upper endplate and L1 upper endplate and moderate wedging of the T11 and T9 vertebra. A grade 1 spondylolisthesis of L5 on S1. Isthe result of severe degenerative facet disease. IMPRESSION: 1. There is mild dilation of the ureters on both sides associated with gross thickening of the bladder wall which is similar to the patient's prior study. The prostate is enlarged and heterogeneous 2. No acute inflammatory changes are identified involving bowel. 3. A few mildly dilated small bowel loops are present centrally which appear overall similar to previous 4. Mild diffuse fatty infiltration of the liver [id number] Procedure Note Hm Interface, Radiology Results Incoming - 04/14/2018 5:28 PM ELECTRIC MOTOR W[employer] ASSEMBLER EXAMINATION: CT ABDOMEN PELVIS W CONTRAST CLINICAL HISTORY: 78 yearsMale lower abd pain groin pain TECHNIQUE: Multiple axial images of the abdomen and pelvis were obtained following intravenous administration of iodinated contrast. Sagittal and coronal computerized reformatted images were also obtained. CT imaging was performed with iterative reconstruction techniques and/or automated exposure control to reduce radiation dose. COMPARISON: February 12, 2018: FINDINGS: The liver and spleen appear normal in size they are homogeneous in texture. The gallbladder and pancreas appear within normal limits. The left adrenal gland demonstrates thickening. The kidneys demonstrate nonobstructing bilateral intrarenal calculi the largest in the 2 to 3 mm range on the left. There are several cysts on the right the largest in the posterior upper pole which is an exophytic cyst measuring approximately 10 to 11 cm in maximum dimension. The right ureter is dilated distally to the level of the bladder. The bladder is decompressed by a catheter. The findings are similar to previous. The prostate appears enlarged. There is thickening of the bladder wall diffusely. The left ureter is also dilated no stone is identified. The findings are similar to the patient's prior examination from February 12, 2018. The appendix appears normal. There are no inflammatory changes identified involving bowel. There is wedging of the L3 upper endplate and L1 upper endplate and moderate wedging of the T11 and T9 vertebra. A grade 1 spondylolisthesis of L5 on S1. Is the result of severe degenerative facet disease. IMPRESSION: 1. There is mild dilation of the ureters on both sides associated with gross thickening of the bladder wall which is similar to the patient's prior study. The prostate is enlarged and heterogeneous 2. No acute inflammatory changes are identified involving bowel. 3. A few mildly dilated small bowel loops are present centrally which appear overall similar to previous 4. Mild diffuse fatty infiltration of the liver [id number] Performing Organization Address City/[facility] Phone Number [facility] [address] [place] [address] * Lipase level (04/14/2018 2:37 PM ELECTRIC MOTOR W[employer]ERS ASSEMBLER) Only the most recent of 2 results within the time period is included. Lipase 80 (H) 13 - 60 U/L [facility] Specimen Plasma specimen Performing Organization Address City/[facility] [place] [address] [place] [address] PATHOLOGY AND GENOMIC MEDICINE [facility] [place] [address] [place] [address] * Hepatic function panel (04/14/2018 2:37 PM ELECTRIC MOTOR W[employer]ERS ASSEMBLER) Albumin 4.6 3.5 - 5.0 g/dL [facility] Total bilirubin 0.3 0.0 - 1.2 mg/dL [facility] Bilirubin direct <0.1 0.0 - 0.3 mg/dL [facility] Alkaline phosphatase 129 40 - 129 U/L [facility] Protein 7.6 6.3 - 8.3 g/dL [facility] Comment: [facility] 4.6-7.0 g/dL 1 week 4.4-7.6 g/dL 7 months-1year 5.1-7.3 g/dL 1-2 years5.6-7 .5 g/dL >3 years6.0-8 .0 g/dL 18-150 6.3-8.3 g/dL ALT 23 5 - 50 U/L [facility] AST 22 10 - 50 U/L [facility] Specimen Plasma specimen Performing Organization Address [facility] Phone Number [address] [place] [address] PATHOLOGY AND GENOMIC MEDICINE [address] * CBC hemogram (03/30/2018 10:01 PM ELECTRIC MOTOR WINDERS ASSEMBLER) WBC 15.27 (H) 4.50 - 11.00 k/uL [facility] RBC 3.98 (L) 4.40 - 6.00 m/uL [facility] HGB 11.7 (L) 14.0 - 18.0 g/dL [facility] HCT 35.4 (L) 41.0 - 51.0 % [facility] MCV 88.9 82.0 - 100.0 fL [facility] MCH 29.4 27.0 - 34.0 pg [facility] MCHC 33.1 31.0 - 37.0 g/dL [facility] RDW - SD 41.6 37.0 - 55.0 fL [facility] MPV 8.8 8.8 - 13.2 fL [facility] Platelet count 397 150 - 400 k/uL [facility] Nucleated RBC 0.00 /100 WBC [facility] Specimen Blood Performing Organization Address [facility] Phone Number [address] [place] [address] PATHOLOGY AND GENOMIC MEDICINE [address] * Lactic acid level, SEPSIS - Now and repeat 2x every 3 hours (02/12/2018 12:30 PM CDT) Only the most recent of 3 results within the time period is included. Lactic acid 1.8 0.5 - 2.2 mmol/L [facility] PATHOLOGY AND [employer] [facility] Specimen Plasma specimen Performing Organization Address [facility] Phone Number [address] [place] [address] PATHOLOGY AND [employer] [facility] * Partial thromboplastin time, activated (02/12/2018 12:08 AM CDT) Only the most recent of 2 results within the time period is included. PTT 27.5 23.0 - 36.0 sec [facility] DEPARTMENT OF Comment: PATHOLOGY AND PTT therapeutic range for [facility] unfractionated heparin is 61.0-112.0 seconds which corresponds to Anti-Xa 0.3-0.7 U/ml. Specimen Blood Performing Organization Address [facility] [place] [facility] Phone Number [address] [place] [id number] [facility] [employer] [facility] * Estimated GFR (12/23/2017 5:06 AM CDT) Only the most recent of 8 results within the time period is included. GFR Non Af Amer >90 mL/min/1.73 m2 [facility] DEPARTMENT OF PATHOLOGY AND [employer] [facility] GFR Af Amer >90 mL/min/1.73 m2 [facility] DEPARTMENT OF Comment: PATHOLOGY AND Chronic kidney disease: <60 GENOMIC MEDICINE mL/min/1.73m2 Kidney failure: <15 mL/min/1.73m2 The estimated GFR is calculated from the IDMS-traceable Modification of Diet in Renal Disease Equation. The accuracy of the calculation is poor when the creatinine is normal. Calculated values >90 mL/min/1.73m2 are not reported. This equation has not been validated in children (<18 years), women, the elderly (>70 years), or ethnic groups other than Caucasians and Americans. Specimen Plasma specimen Performing Organization Address [facility] [place] Phone Number [address] [place] [address] [facility] * XR Knee 4+ Vw Right (12/21/2017 8:25 AM CDT) Narrative Performed At EXAMINATION:XR KNEE 4VW RIGHT [facility] CLINICAL HISTORY:Knee paininitial exam COMPARISON:None. Findings: The bones are severely and diffusely osteopenic there are love and probably intra-articular calcifications which are probably chronic and not result of acute trauma. There is soft tissue swelling noted about the knee. There are no fractures identified. IMPRESSION: Diffuse osteopenia with arthritic changes no fractures are identified. [id number] Procedure Note Interface, Radiology Results - 12/21/2017 8:34 AM CDT EXAMINATION: XR KNEE 4 VW RIGHT CLINICAL HISTORY: Knee pain initial exam COMPARISON: None. Findings: The bones are severely and diffusely osteopenic there are love and probably intra-articular calcifications which are probably chronic and not result of acute trauma. There is soft tissue swelling noted about the knee. There are no fractures identified. IMPRESSION: Diffuse osteopenia with arthritic changes no fractures are identified. [id number] Performing Organization Address City/State/Zipcode Phone Number [facility] [address] [place] [address] * XR Knee 4+ Vw Left (12/21/2017 8:25 AM CDT) Narrative Performed At EXAMINATION:XR KNEE 4VW LEFT [facility] CLINICAL HISTORY:Knee paininitial exam COMPARISON:None. Findings: There is a secondary ossification center associated with the superior patellar margin which is not felt to be of acute significance. There also appears to be a fracture of the proximal fibula although the age is uncertain. There appears to be some periosteal new bone formation suggesting healing. Some generalized sclerosis is also present. This does not appear to be acute. Otherwise the bones are osteopenic with arthritic changes medially, laterally and in the patellofemoral compartment. Soft tissue swelling generally about the knee is present. IMPRESSION: 1. Diffuse osteopenia with soft tissue swelling. 2. Fracture of the proximal fibula which appears old and healing 3. No acute findings are noted [id number] Procedure Note Interface, Radiology Results - 12/21/2017 8:32 AM CDT EXAMINATION: XR KNEE 4 VW LEFT CLINICAL HISTORY: Knee pain initial exam COMPARISON: None. Findings: There is a secondary ossification center associated with the superior patellar margin which is not felt to be of acute significance. There also appears to be a fracture of the proximal fibula although the age is uncertain. There appears to be some periosteal new bone formation suggesting healing. Some generalized sclerosis is also present. This does not appear to be acute. Otherwise the bones are osteopenic with arthritic changes medially, laterally and in the patellofemoral compartment. Soft tissue swelling generally about the knee is present. IMPRESSION: 1. Diffuse osteopenia with soft tissue swelling. 2. Fracture of the proximal fibula which appears old and healing 3. No acute findings are noted [id number] Performing Organization Address City/[facility] Phone Number [facility] [address] [place] [address] * Thyroid stimulating hormone (12/21/2017 6:55 AM CDT) Only the most recent of 2 results within the time period is included. TSH 0.97 0.27 - 4.20 uIU/mL [facility] DEPARTMENT OF PATHOLOGY AND GENOMIC MEDICINE Specimen Plasma specimen Performing Organization Address [facility] [place] Phone Number [address] [place] [address] PATHOLOGY AND [facility] MEDICINE * T4, free (12/21/2017 6:55 AM CDT) T4, free 1.10 0.90 - 1.70 ng/dL [facility] DEPARTMENT OF PATHOLOGY AND [facility] MEDICINE Specimen Plasma specimen Performing Organization Address [facility] [place] Phone Number [address] [place] [address] PATHOLOGY AND [facility] MEDICINE * B natriuretic peptide (12/21/2017 6:55 AM CDT) Only the most recent of 3 results within the time period is included. BNP 84 0 - 100 pg/mL [facility] DEPARTMENT OF PATHOLOGY AND GENOMIC MEDICINE Specimen Blood Performing Organization Address [facility] [place] Phone Number [address] [place] [address] PATHOLOGY AND [facility] MEDICINE * XR Hand 3+ Vw Left (10/30/2017 3:08 PM CDT) Narrative Performed At EXAMINATION:XR HAND 3VW LEFT [facility] CLINICAL HISTORY:BONE PAINHAND, wound dehisencebase of ring fingereval for bony injury COMPARISON:None. IMPRESSION: There is no evidence of fracture or dislocation The bones are demineralized Osteoarthritic change in the first carpometacarpal joint with joint space narrowing present. Narrowing of the radiocarpal joint [id number] Procedure Note Hm Interface, Radiology Results Incoming - 10/30/2017 3:12 PM CDT EXAMINATION: XR HAND 3 VW LEFT CLINICAL HISTORY: BONE PAIN HAND, wound dehisence base of ring finger eval for bony injury COMPARISON: None. IMPRESSION: There is no evidence of fracture or dislocation The bones are demineralized Osteoarthritic change in the first carpometacarpal joint with joint space narrowing present. Narrowing of the radiocarpal joint [facility]-[id number] Performing Organization Address City/[facility]/Zipcode Phone Number [facility] [address] [place] [address] * SUTURE REMOVAL (10/30/2017 2:09 PM CDT) Narrative Performed At Jennifer Rick MD 10/30/20175:37 PM Suture Removal Performed by: JENNIFER RICK Authorized by: JENNIFER RICK Consent: Consent obtained:Verbal Consent given by:Patient Risks discussed:Wound separation, pain and bleeding Alternatives discussed:No treatment Location: Location:Upper extremity Upper extremity location:Hand Hand location:L ring finger Procedure details: Wound appearance:No signs of infection and red Number of sutures removed:2 Post-procedure details: Post-removal:Dressing applied Patient tolerance of procedure:Tolerated well, no immediate complications * Hemoglobin A1c (09/27/2017 5:37 AM CDT) Hemoglobin A1C 9.2 (H) 4.0 - 6.0 % [facility] DEPARTMENT OF Comment: PATHOLOGY AND GENOMIC MEDICINE Less than 6% - Goal of therapy for Type II Diabetes Less than 7%-Goal of therapy for Type I Diabetes Less than 8%-Accepta ble control for Type I or Type II Diabetes Greater than 8%-Unacceptabl e control; action indicated. (ADA94) Specimen Blood Performing Organization Address [facility]/Zipcode Phone Number [address] [place] [address] PATHOLOGY AND GENOMIC MEDICINE * Vitamin B1 level, whole blood (09/26/2017 6:47 PM CDT) Vitamin B1 107 70 - 180 nmol/L [facility] Comment: INTERPRETIVE INFORMATION: Vitamin B1, Whole Blood This assay measures the concentration of thiamine diphosphate (TDP), the primary active form of vitamin B1. Approximately 90 percent of vitamin B1 present in whole blood is TDP. Thiamine and thiamine monophosphate, which comprise the remaining 10 percent, are not measured. Test developed and characteristics determined by [facility]. See Compliance Statement B: [employer] [employer] Performed by [facility], [address] [place] [id number] [email or web address], Zia Gaitan MD - Lab. Director Specimen Plasma specimen Performing Organization Address [facility] Phone Number [facility] [address] [place] [address] * Vitamin B6 level, plasma (09/26/2017 6:47 PM CDT) Vitamin B6 16.2 (L) 20.0 - 125.0 nmol/L [facility] Comment: INTERPRETIVE INFORMATION: Vitamin B6 (Pyridoxal 5-Phosphate) Pyridoxal 5'-phosphate measured in a specimen collected following an 8-hour or overnight fast accurately indicates vitamin B6 nutritional status. Non-fasting specimen concentration reflects recent vitamin intake. Test developed and characteristics determined by [facility]. See Compliance Statement B: [facility] Performed by [facility], [address] [place] [address] [email or web address], Zia Gaitan MD - Lab. Director Specimen Plasma specimen Performing Organization Address [facility] [place] Phone Number [facility] [address] [place] [address] * Vitamin B12 level (09/26/2017 6:47 PM CDT) Vitamin B12 661 211 - 946 pg/mL [facility] DEPARTMENT OF Comment: PATHOLOGY AND Significant overlap exists GENOMIC MEDICINE between normal and deficiency states. However, most patients with deficiencies will have Serum B12 <200 pg/mL. Specimen Serum Performing Organization Address [facility] Phone Number [facility] DEPARTMENT [address] [place] [address] PATHOLOGY AND GENOMIC MEDICINE * CT Head Wo Contrast (09/26/2017 1:51 PM CDT) Narrative Performed At EXAMINATION:CT HEAD WO CONTRAST [facility] COMPARISON: and June [address] CLINICAL HISTORY:CONFUSION DELERIUMALTERED LOCUNEXPLAINED TECHNIQUE: Up to date CT equipment and radiation dose reduction technique were utilized. 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 There are no new areas of abnormal density. There is no mass, hemorrhage or extra-axial fluid collection. The sinuses and mastoids are clear. IMPRESSION: No acute changes. [facility]-[id number] Procedure Note Interface, Radiology Results Incoming - 09/26/2017 1:57 PM CDT EXAMINATION: CT HEAD WO CONTRAST COMPARISON: and June [address] CLINICAL HISTORY: CONFUSION DELERIUM ALTERED LOC UNEXPLAINED TECHNIQUE: Up to date CT equipment and radiation dose reduction technique were utilized. 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 There are no new areas of abnormal density. There is no mass, hemorrhage or extra-axial fluid collection. The sinuses and mastoids are clear. IMPRESSION: No acute changes. [facility]-[id number] Performing Organization Address [facility] Phone Number [employer] [address] [place] [address] * XR Chest 1 Vw Portable (09/09/2017 8:15 PM CDT) Narrative Performed At EXAMINATION: XR CHEST 1 VW PORTABLE [facility] CLINICAL HISTORY: Chest Pain COMPARISON:07/02/2017. IMPRESSION: Bibasilar subsegmental atelectasis. The lungs are otherwise clear. No pleural effusion or pneumothorax. The cardiomediastinal silhouette is normal. Thoracic aorta atherosclerotic calcifications. No acute osseous abnormalities. [facility]-[id number] Procedure Note Interface, Radiology Results Incoming - 09/09/2017 8:27 PM CDT EXAMINATION: XR CHEST 1 VW PORTABLE CLINICAL HISTORY: Chest Pain COMPARISON: 07/02/2017. IMPRESSION: Bibasilar subsegmental atelectasis. The lungs are otherwise clear. No pleural effusion or pneumothorax. The cardiomediastinal silhouette is normal. Thoracic aorta atherosclerotic calcifications. No acute osseous abnormalities. [facility]-[id number] Performing Organization Address City/[facility] Phone Number [employer] [address] [place] [address] after 08/30/2017 Insurance Payer Benefit Subscriber ID Type Phone Address Plan / Group MEDICARE MEDICARE xxxxxxxxxx Medicare [place], [place] PART A AND B UNIV[employer]AL [employer] UNIVERSAL xxxxxxxx Commercial [employer] [address] ([place]) [place] [address] Advance Directives Patient has advance care planning documents, and code status on file. For more i nformation, please contact: Sarwat Bean [address] [place] [address] Date Inactivated Comments Code Status Date Activated 05/12/2017 8:58 PM Full Code 05/09/2017 4:55 PM Code Status decision reached by: Patient 03/07/2017 7:32 PM Full Code 03/06/2017 5:19 AM Code Status decision reached by: Patient
--- OUTSIDE RECORDS SUMMARY | 2018-08-31 01:40 | XMS REPORT ---
Author Author Ronit Landon Organization Unknown Address [address] [facility]. Phone Unavailable Care Team Providers Care Play Writer Name Role Phone Dr. 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 05/24/2017 Active R27.0 ATAXIA, UNSPECIFIED 05/24/2017 Active R56.9 UNSPECIFIED CONVULSIONS 08/02/2015 Active G40.909 EPILEPSY, UNSPECIFIED, NOT INTRACTABLE, WITHOUT STATUS EPILEPTICUS 05/24/2017 Active G31.84 MILD COGNITIVE IMPAIRMENT, SO STATED 06/10/2017 Active I10 ESSENTIAL (PRIMARY) HYPERTENSION 07/08/2015 Active G72.9 MYOPATHY, UNSPECIFIED 09/13/2015 Active R53.1 WEAKNESS 07/08/2015 Active 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 09/13/2015 Active R55 SYNCOPE AND COLLAPSE 07/08/2015 Active F32.1 MAJOR DEPRESSIVE DISORDER, SINGLE EPISODE, MODERATE 06/10/2017 Active F41.9 ANXIETY DISORDER, UNSPECIFIED 05/24/2017 Active L03.119 CELLULITIS OF UNSPECIFIED PART OF LIMB 07/08/2015 Inactive Medications Medication Dose Form Route Sig Text Dates Status Lisinopril Tablet 10 MG 3 tablet Tablet Oral 3 TAB(S) BY MOUTH DAILY HOLD FOR BP<110/60, HR<60 (3T=30MG) 05/25/2017 8:00:00 06/14/2017 12:12:00 Aborted Oxybutynin Chloride Tablet 5 MG 1 tablet Tablet Oral 1 TAB(S) BY MOUTH 3 TIMES A DAY FOR URINARY HEALTH 05/24/2017 16:00:00 Mag-Al Plus Liquid 200-200-20 MG/5ML 30 ml Liquid Oral Give 30 ml by mouth as needed for indigestion Daily 05/24/2017 13:45:00 Namenda Tablet 5 MG 2 tablet Tablet Oral Give 2 tablet by mouth one time a day for memory 2 tabs=10mg 05/25/2017 8:00:00 CloNIDine HCl Patch Weekly 0.1 MG/24HR 1 patch Patch Weekly Transdermal 1 PATCH(ES) TOPICALLY DAILY EVERY 7 DAYS (REMOVE OLD PATCH BEFORE APPLYING A NEW ONE) 05/27/2017 8:00:00 05/25/2017 16:04:00 Aborted Dulcolax Tablet Delayed Release 5 MG 2 tablet Tablet Delayed Release Oral Give 2 tablet by mouth as needed for constipation HS, 2 tabs=10mg 05/24/2017 13:45:00 Lidoderm Patch 5 % Patch External 1 PATCH(ES) TOPICALLY DAILY - REMOVE IN 12-HOURS (REMOVE OLD PATCH BEFORE APPLYING A NEW ONE) LOCATION : _ 05/25/2017 8:00:00 Amaryl Tablet 1 MG 1 tablet Tablet Oral 1 TAB(S) BY MOUTH BEFORE MEALS FOR DM 05/24/2017 16:30:00 06/14/2017 12:14:00 Aborted Sertraline HCl Tablet 50 MG 1 tablet Tablet Oral 1 TAB(S) BY MOUTH DAILY RELATED TO MAJOR DEPRESSIVE DISORDER 05/25/2017 8:00:00 06/08/2017 17:07:00 Aborted Aspirin Tablet 81 MG 1 tablet Tablet Oral Give 1 tablet by mouth one time a day for prophylaxis 05/25/2017 8:00:00 Keppra Tablet 500 MG 1 tablet Tablet Oral 1 TAB(S) BY MOUTH 2 TIMES A DAY RELATED TO UNSPECIFIED CONVULSIONS 05/24/2017 16:00:00 Zofran ODT Tablet Disintegrating 4 MG 1 tablet Tablet Disintegrating Oral 1 TAB(S) SUBLINGUALLY UNDER TONGUE 4H NEEDED FOR N/V 05/24/2017 13:45:00 Donepezil HCl Tablet 10 MG 1 tablet Tablet Oral 1 TAB(S) BY MOUTH AT BEDTIME FOR MEMORY 05/24/2017 20:00:00 Prasterone (DHEA) Tablet 50 MG 1 tablet Tablet Oral Give 1 tablet by mouth one time a day for supplement 05/25/2017 8:00:00 05/25/2017 15:59:00 Aborted Loperamide HCl Capsule 2 MG 1 capsule Capsule Oral Give 1 capsule by mouth as needed for diarrhea do not exceed 8 doses in 24 hours 05/24/2017 13:45:00 05/25/2017 16:03:00 Aborted Flomax Capsule 0.4 MG 1 capsule Capsule Oral 1 CAP(S) BY MOUTH DAILY FOR URINARY HEALTH 05/25/2017 8:00:00 Ergocalciferol Capsule 05565 UNIT 1 capsule Capsule Oral 1 CAP(S) BY MOUTH DAILY ON WEDNESDAY FOR SUPPLEMENT 05/27/2017 8:00:00 Catapres Tablet 0.1 MG 1 tablet Tablet Oral 1 TAB(S) BY MOUTH 3 TIMES A DAY HOLD FOR BP<110/60, HR<60 05/24/2017 16:00:00 05/25/2017 14:19:00 Aborted Milk of Magnesia Suspension 7.75 % 30 cc Suspension Oral Give 30 cc by mouth as needed for constipation daily 05/24/2017 13:45:00 MetFORMIN HCl Tablet 500 MG 2 tablet Tablet Oral 2 TAB(S) BY MOUTH 2 TIMES A DAY FOR DM (2N=7433DS) 05/24/2017 16:00:00 TEGretol Tablet 200 MG 1 tablet Tablet Oral 1 TAB(S) BY MOUTH 2 TIMES A DAY RELATED TO UNSPECIFIED CONVULSIONS 05/24/2017 16:00:00 Progesterone Micronized Capsule 100 MG 1 capsule Capsule Oral 1 CAP(S) BY MOUTH AT BEDTIME FOR SUPPLEMENT 05/24/2017 20:00:00 05/25/2017 16:02:00 Aborted Anusol-HC Suppository 25 MG 1 suppository Suppository Rectal 1 SUPPOSITORY PER RECTUM 3 TIMES A DAY NEEDED FOR HEMORRHOIDS 05/24/2017 13:45:00 Tylenol Tablet 325 MG 2 tablet Tablet Oral Give 2 tablet by mouth every 4 hours as needed for pain 2 [id number] 05/24/2017 13:45:00 Lovaza Capsule 1 GM 1 capsule Capsule Oral 1 CAP(S) BY MOUTH 3 TIMES A DAY FOR SUPPLEMENT 05/24/2017 16:00:00 Ondansetron HCl Solution 4 MG/2ML 2 ml Solution Injection 2 CC/ML INTRAMUSCULARLY EVERY 6 HOURS NEEDED FOR N/V 05/24/2017 13:45:00 05/25/2017 16:01:00 Aborted Alpha-Lipoic Acid Tablet 200 MG 1 tablet Tablet Oral Give 1 tablet by mouth two times a day for supplement 05/24/2017 18:00:00 05/25/2017 16:00:00 Aborted Acetaminophen-Codeine Tablet 300-30 MG 1 tablet Tablet Oral Give 1 tablet by mouth every 4 hours as needed for pain give 1 or 2 tablets for pain 05/24/2017 16:45:00 05/24/2017 17:17:00 Aborted Acetaminophen-Codeine Tablet 300-30 MG Tablet Oral Give 1 tablet by mouth every 4 hours as needed for pain n AND Give 2 tablet by mouth every 4 hours as needed for Pain 05/24/2017 17:19:00 Co Q10 Capsule 200 MG 2 capsule Capsule Oral Give 2 capsule by mouth two times a day for supplement morning and noon 05/26/2017 8:00:00 Catapres Tablet 0.1 MG Tablet Oral Give 1 tablet by mouth three times a day related to ESSENTIAL (PRIMARY) HYPERTENSION (I10) Hold for BP <110/60, HR <60 AND Give 1 tablet by mouth every 4 hours as needed for HTN give for SBP >170 or DBP > 110 05/25/2017 14:22:00 05/25/2017 16:07:00 Aborted CloNIDine HCl Patch Weekly 0.2 MG/24HR 1 patch Patch Weekly Transdermal 1 PATCH(ES) TOPICALLY DAILY EVERY 7 DAYS (EVERY WED, REMOVE OLD PATCH BEFORE APPLYING A NEW ONE) 05/26/2017 8:00:00 Catapres Tablet 0.1 MG 1 tablet Tablet Oral 1 TAB(S) BY MOUTH EVERY 4 HOURS NEEDED (GIVE FOR SBP >170 OR DBP >110) 05/25/2017 16:15:00 HumaLOG Solution Solution Subcutaneous 1 DOSE(S) SUBCUTANEOUSLY PER SLIDING SCALE 2 TIMES A DAY DIRECTED 251-300=2 L093-141=7 J832-780=2 U568-515=2 N276-382=01 U>50 06/05/2017 8:00:00 Glucagon Emergency Kit 1 MG 1 mg Kit Injection Inject 1 mg intramuscularly as needed for Hypoglycemic crisis If BS <60 and resident is semi-conscious give 1 MG glucagon IM, recheck BS in 10 minutes. IF BS is still <60 and patient is se mi-unconscious give 1 MG glucagon IM and call 06/04/2017 21:00:00 Sertraline HCl Tablet 75 mg Tablet Oral Give 75 mg by mouth one time a day for Depression 06/09/2017 7:00:00 Amaryl Tablet 2 MG 1 tablet Tablet Oral 1 TAB(S) BY MOUTH DAILY 06/15/2017 8:00:00 Lisinopril Tablet 20 MG 1 tablet Tablet Oral 1 TAB(S) BY MOUTH 2 TIMES A DAY 06/14/2017 15:00:00 Tuberculin PPD Solution 0.1 ml Solution Intradermal Inject 0.1 ml intradermally one time only for Prophylaxis for 1 Day Adm within first 24 hours of admission. Repeat yearly. 05/25/2017 9:39:00 05/26/2017 9:38:00 Completed Sodium Polystyrene Sulfonate Suspension 15 GM/60ML 15 gram Suspension Oral Give 15 gram by mouth one time only for hyperkalemia until 05/27/2017 23:59 05/26/2017 14:00:00 05/27/2017 23:59:00 Completed Results Date Test Result Interpretation Reference Range Status Notes Blood sugar 05/25/2017 22:18:00 Blood sugar 178.0 mmol/L 05/26/2017 8:36:34 Blood sugar 241.0 mmol/L 05/26/2017 20:50:18 Blood sugar 146.0 mmol/L 05/27/2017 8:34:57 Blood sugar 215.0 mmol/L 05/27/2017 21:18:16 Blood sugar 162.0 mmol/L 05/28/2017 7:41:13 Blood sugar 142.0 mmol/L 05/28/2017 19:50:56 Blood sugar 226.0 mmol/L 05/29/2017 7:30:00 Blood sugar 180.0 mmol/L 05/29/2017 20:33:33 Blood sugar 179.0 mmol/L 05/30/2017 8:00:00 Blood sugar 182.0 mmol/L 05/31/2017 8:00:00 Blood sugar 160.0 mmol/L 05/31/2017 20:05:34 Blood sugar 149.0 mmol/L 06/01/2017 8:28:12 Blood sugar 130.0 mmol/L 06/01/2017 21:05:47 Blood sugar 267.0 mmol/L 06/02/2017 8:13:03 Blood sugar 211.0 mmol/L 06/02/2017 19:55:53 Blood sugar 133.0 mmol/L 06/03/2017 7:29:57 Blood sugar 162.0 mmol/L 06/03/2017 21:12:37 Blood sugar 174.0 mmol/L 06/04/2017 8:14:22 Blood sugar 143.0 mmol/L 06/04/2017 19:37:26 Blood sugar 279.0 mmol/L 06/05/2017 8:43:10 Blood sugar 135.0 mmol/L 06/05/2017 8:43:16 Blood sugar 135.0 mmol/L 06/05/2017 20:28:52 Blood sugar 178.0 mmol/L 06/05/2017 20:29:05 Blood sugar 178.0 mmol/L 06/06/2017 9:01:18 Blood sugar 125.0 mmol/L 06/06/2017 9:01:24 Blood sugar 125.0 mmol/L 06/06/2017 21:00:02 Blood sugar 168.0 mmol/L 06/06/2017 21:00:12 Blood sugar 168.0 mmol/L 06/07/2017 8:56:37 Blood sugar 129.0 mmol/L 06/07/2017 8:56:43 Blood sugar 129.0 mmol/L 06/07/2017 19:22:28 Blood sugar 154.0 mmol/L 06/07/2017 19:22:39 Blood sugar 154.0 mmol/L 06/08/2017 8:26:46 Blood sugar 116.0 mmol/L 06/08/2017 8:26:52 Blood sugar 116.0 mmol/L 06/08/2017 20:42:41 Blood sugar 164.0 mmol/L 06/08/2017 20:49:41 Blood sugar 164.0 mmol/L 06/09/2017 8:11:13 Blood sugar 109.0 mmol/L 06/09/2017 8:11:21 Blood sugar 109.0 mmol/L 06/09/2017 19:28:41 Blood sugar 217.0 mmol/L 06/09/2017 19:28:53 Blood sugar 217.0 mmol/L 06/10/2017 8:28:20 Blood sugar 109.0 mmol/L 06/10/2017 8:28:26 Blood sugar 109.0 mmol/L 06/10/2017 21:08:53 Blood sugar 186.0 mmol/L 06/10/2017 21:10:56 Blood sugar 186.0 mmol/L 06/11/2017 8:37:53 Blood sugar 130.0 mmol/L 06/11/2017 8:38:03 Blood sugar 130.0 mmol/L 06/11/2017 22:29:48 Blood sugar 158.0 mmol/L 06/11/2017 22:39:49 Blood sugar 158.0 mmol/L 06/12/2017 8:33:00 Blood sugar 136.0 mmol/L 06/12/2017 10:32:33 Blood sugar 136.0 mmol/L 06/12/2017 20:29:00 Blood sugar 206.0 mmol/L 06/13/2017 8:26:29 Blood sugar 128.0 mmol/L 06/13/2017 8:26:44 Blood sugar 128.0 mmol/L 06/13/2017 20:22:26 Blood sugar 246.0 mmol/L 06/13/2017 20:22:36 Blood sugar 246.0 mmol/L 06/14/2017 8:14:22 Blood sugar 118.0 mmol/L 06/14/2017 8:14:38 Blood sugar 118.0 mmol/L 06/14/2017 19:20:09 Blood sugar 163.0 mmol/L 06/14/2017 19:20:23 Blood sugar 163.0 mmol/L 06/15/2017 9:40:47 Blood sugar 119.0 mmol/L 06/15/2017 9:40:57 Blood sugar 119.0 mmol/L 06/15/2017 21:38:15 Blood sugar 182.0 mmol/L 06/15/2017 21:38:32 Blood sugar 182.0 mmol/L 06/16/2017 8:33:02 Blood sugar 178.0 mmol/L 06/16/2017 8:33:09 Blood sugar 178.0 mmol/L 06/16/2017 20:38:37 Blood sugar 188.0 mmol/L 06/16/2017 20:38:43 Blood sugar 188.0 mmol/L 06/17/2017 7:39:35 Blood sugar 138.0 mmol/L 06/17/2017 7:39:46 Blood sugar 138.0 mmol/L 06/17/2017 19:14:28 Blood sugar 167.0 mmol/L 06/17/2017 19:14:37 Blood sugar 167.0 mmol/L 06/18/2017 8:09:34 Blood sugar 150.0 mmol/L 06/18/2017 8:09:45 Blood sugar 150.0 mmol/L 06/18/2017 19:52:07 Blood sugar 245.0 mmol/L 06/18/2017 19:52:34 Blood sugar 245.0 mmol/L 06/19/2017 9:12:22 Blood sugar 132.0 mmol/L 06/19/2017 9:12:32 Blood sugar 132.0 mmol/L 06/19/2017 19:39:50 Blood sugar 224.0 mmol/L 06/19/2017 19:40:07 Blood sugar 224.0 mmol/L 06/20/2017 8:58:01 Blood sugar 157.0 mmol/L 06/20/2017 8:58:07 Blood sugar 157.0 mmol/L 06/20/2017 20:43:05 Blood sugar 165.0 mmol/L 06/20/2017 20:43:15 Blood sugar 165.0 mmol/L 06/21/2017 8:43:47 Blood sugar 154.0 mmol/L 06/21/2017 8:43:57 Blood sugar 154.0 mmol/L 06/21/2017 20:02:06 Blood sugar 155.0 mmol/L 06/21/2017 20:02:16 Blood sugar 155.0 mmol/L 06/22/2017 8:25:32 Blood sugar 137.0 mmol/L 06/22/2017 8:25:39 Blood sugar 137.0 mmol/L 06/22/2017 20:10:00 Blood sugar 186.0 mmol/L 06/22/2017 23:47:24 Blood sugar 186.0 mmol/L 06/23/2017 8:04:00 Blood sugar 248.0 mmol/L 06/23/2017 21:37:49 Blood sugar 289.0 mmol/L 06/23/2017 21:41:06 Blood sugar 289.0 mmol/L 06/24/2017 9:08:30 Blood sugar 148.0 mmol/L 06/24/2017 10:10:02 Blood sugar 148.0 mmol/L Vital signs Description Observation Date INTRAVASCULAR SYSTOLIC 132.0 mm[Hg] 05/24/2017 12:24:00 INTRAVASCULAR DIASTOLIC 83.0 mm[Hg] 05/24/2017 12:24:00 BODY TEMPERATURE 98.1 [degF] 05/24/2017 12:24:00 RESPIRATION RATE 18.0 /min 05/24/2017 12:24:00 HEART BEAT 69.0 {beats}/min 05/24/2017 12:24:00 RESPIRATION RATE 18.0 /min 05/24/2017 16:18:06 INTRAVASCULAR SYSTOLIC 132.0 mm[Hg] 05/24/2017 16:18:06 INTRAVASCULAR DIASTOLIC 80.0 mm[Hg] 05/24/2017 16:18:06 BODY TEMPERATURE 98.2 [degF] 05/24/2017 16:18:06 HEART BEAT 68.0 {beats}/min 05/24/2017 16:18:06 PAIN LEVEL 6.0 {score} 05/24/2017 20:11:57 PAIN LEVEL 2.0 {score} 05/24/2017 21:22:00 RESPIRATION RATE 18.0 /min 05/25/2017 3:14:01 INTRAVASCULAR SYSTOLIC 137.0 mm[Hg] 05/25/2017 3:14:01 INTRAVASCULAR DIASTOLIC 72.0 mm[Hg] 05/25/2017 3:14:01 BODY TEMPERATURE 98.3 [degF] 05/25/2017 3:14:01 HEART BEAT 67.0 {beats}/min 05/25/2017 3:14:01 OXYGEN SATURATION 96.0 % 05/25/2017 4:15:00 BODY WEIGHT (MEASURED) 204.8 [lb_av] 05/25/2017 6:30:00 BODY HEIGHT (MEASURED) 75.0 [in_i] 05/25/2017 6:30:00 INTRAVASCULAR SYSTOLIC 141.0 mm[Hg] 05/25/2017 8:43:22 INTRAVASCULAR DIASTOLIC 84.0 mm[Hg] 05/25/2017 8:43:22 HEART BEAT 71.0 {beats}/min 05/25/2017 8:43:22 RESPIRATION RATE 17.0 /min 05/25/2017 9:44:08 INTRAVASCULAR SYSTOLIC 132.0 mm[Hg] 05/25/2017 9:44:08 INTRAVASCULAR DIASTOLIC 76.0 mm[Hg] 05/25/2017 9:44:08 BODY TEMPERATURE 98.2 [degF] 05/25/2017 9:44:08 HEART BEAT 69.0 {beats}/min 05/25/2017 9:44:08 RESPIRATION RATE 18.0 /min 05/25/2017 22:17:01 INTRAVASCULAR SYSTOLIC 126.0 mm[Hg] 05/25/2017 22:17:01 INTRAVASCULAR DIASTOLIC 72.0 mm[Hg] 05/25/2017 22:17:01 BODY TEMPERATURE 98.4 [degF] 05/25/2017 22:17:01 HEART BEAT 66.0 {beats}/min 05/25/2017 22:17:01 RESPIRATION RATE 18.0 /min 05/26/2017 4:16:39 INTRAVASCULAR SYSTOLIC 138.0 mm[Hg] 05/26/2017 4:16:39 INTRAVASCULAR DIASTOLIC 72.0 mm[Hg] 05/26/2017 4:16:39 BODY TEMPERATURE 98.2 [degF] 05/26/2017 4:16:39 HEART BEAT 66.0 {beats}/min 05/26/2017 4:16:39 OXYGEN SATURATION 93.0 % 05/26/2017 4:58:00 INTRAVASCULAR SYSTOLIC 171.0 mm[Hg] 05/26/2017 8:45:21 INTRAVASCULAR DIASTOLIC 86.0 mm[Hg] 05/26/2017 8:45:21 HEART BEAT 65.0 {beats}/min 05/26/2017 8:45:21 RESPIRATION RATE 18.0 /min 05/26/2017 14:34:46 INTRAVASCULAR SYSTOLIC 171.0 mm[Hg] 05/26/2017 14:34:46 INTRAVASCULAR DIASTOLIC 86.0 mm[Hg] 05/26/2017 14:34:46 BODY TEMPERATURE 98.2 [degF] 05/26/2017 14:34:46 HEART BEAT 65.0 {beats}/min 05/26/2017 14:34:46 RESPIRATION RATE 17.0 /min 05/26/2017 20:50:41 INTRAVASCULAR SYSTOLIC 147.0 mm[Hg] 05/26/2017 20:50:41 INTRAVASCULAR DIASTOLIC 78.0 mm[Hg] 05/26/2017 20:50:41 BODY TEMPERATURE 98.3 [degF] 05/26/2017 20:50:41 HEART BEAT 67.0 {beats}/min 05/26/2017 20:50:41 PAIN LEVEL 0.0 {score} 05/26/2017 21:32:00 PAIN LEVEL 4.0 {score} 05/26/2017 21:32:51 RESPIRATION RATE 18.0 /min 05/27/2017 3:56:50 INTRAVASCULAR SYSTOLIC 146.0 mm[Hg] 05/27/2017 3:56:50 INTRAVASCULAR DIASTOLIC 72.0 mm[Hg] 05/27/2017 3:56:50 BODY TEMPERATURE 98.4 [degF] 05/27/2017 3:56:50 HEART BEAT 81.0 {beats}/min 05/27/2017 3:56:50 INTRAVASCULAR SYSTOLIC 162.0 mm[Hg] 05/27/2017 8:39:53 INTRAVASCULAR DIASTOLIC 78.0 mm[Hg] 05/27/2017 8:39:53 HEART BEAT 64.0 {beats}/min 05/27/2017 8:39:53 RESPIRATION RATE 18.0 /min 05/27/2017 9:19:45 INTRAVASCULAR SYSTOLIC 162.0 mm[Hg] 05/27/2017 9:19:45 INTRAVASCULAR DIASTOLIC 78.0 mm[Hg] 05/27/2017 9:19:45 BODY TEMPERATURE 98.1 [degF] 05/27/2017 9:19:45 HEART BEAT 64.0 {beats}/min 05/27/2017 9:19:45 RESPIRATION RATE 18.0 /min 05/27/2017 16:34:54 INTRAVASCULAR SYSTOLIC 152.0 mm[Hg] 05/27/2017 16:34:54 INTRAVASCULAR DIASTOLIC 78.0 mm[Hg] 05/27/2017 16:34:54 BODY TEMPERATURE 98.2 [degF] 05/27/2017 16:34:54 HEART BEAT 64.0 {beats}/min 05/27/2017 16:34:54 PAIN LEVEL 4.0 {score} 05/27/2017 21:47:48 PAIN LEVEL 1.0 {score} 05/27/2017 22:17:33 OXYGEN SATURATION 98.0 % 05/28/2017 0:54:00 RESPIRATION RATE 18.0 /min 05/28/2017 1:51:04 INTRAVASCULAR SYSTOLIC 143.0 mm[Hg] 05/28/2017 1:51:04 INTRAVASCULAR DIASTOLIC 89.0 mm[Hg] 05/28/2017 1:51:04 BODY TEMPERATURE 98.0 [degF] 05/28/2017 1:51:04 HEART BEAT 56.0 {beats}/min 05/28/2017 1:51:04 INTRAVASCULAR SYSTOLIC 157.0 mm[Hg] 05/28/2017 8:50:11 INTRAVASCULAR DIASTOLIC 70.0 mm[Hg] 05/28/2017 8:50:11 HEART BEAT 71.0 {beats}/min 05/28/2017 8:50:11 RESPIRATION RATE 18.0 /min 05/28/2017 9:57:58 INTRAVASCULAR SYSTOLIC 157.0 mm[Hg] 05/28/2017 9:57:58 INTRAVASCULAR DIASTOLIC 70.0 mm[Hg] 05/28/2017 9:57:58 BODY TEMPERATURE 98.1 [degF] 05/28/2017 9:57:58 HEART BEAT 71.0 {beats}/min 05/28/2017 9:57:58 RESPIRATION RATE 18.0 /min 05/28/2017 19:51:12 INTRAVASCULAR SYSTOLIC 149.0 mm[Hg] 05/28/2017 19:51:12 INTRAVASCULAR DIASTOLIC 68.0 mm[Hg] 05/28/2017 19:51:12 BODY TEMPERATURE 97.9 [degF] 05/28/2017 19:51:12 HEART BEAT 70.0 {beats}/min 05/28/2017 19:51:12 RESPIRATION RATE 18.0 /min 05/29/2017 2:19:49 INTRAVASCULAR SYSTOLIC 129.0 mm[Hg] 05/29/2017 2:19:49 INTRAVASCULAR DIASTOLIC 60.0 mm[Hg] 05/29/2017 2:19:49 BODY TEMPERATURE 98.4 [degF] 05/29/2017 2:19:49 HEART BEAT 61.0 {beats}/min 05/29/2017 2:19:49 INTRAVASCULAR SYSTOLIC 140.0 mm[Hg] 05/29/2017 7:10:12 INTRAVASCULAR DIASTOLIC 56.0 mm[Hg] 05/29/2017 7:10:12 HEART BEAT 58.0 {beats}/min 05/29/2017 7:10:12 RESPIRATION RATE 18.0 /min 05/29/2017 9:08:30 INTRAVASCULAR SYSTOLIC 140.0 mm[Hg] 05/29/2017 9:08:30 INTRAVASCULAR DIASTOLIC 56.0 mm[Hg] 05/29/2017 9:08:30 BODY TEMPERATURE 98.7 [degF] 05/29/2017 9:08:30 HEART BEAT 58.0 {beats}/min 05/29/2017 9:08:30 RESPIRATION RATE 16.0 /min 05/29/2017 19:16:24 INTRAVASCULAR SYSTOLIC 134.0 mm[Hg] 05/29/2017 19:16:24 INTRAVASCULAR DIASTOLIC 68.0 mm[Hg] 05/29/2017 19:16:24 BODY TEMPERATURE 97.9 [degF] 05/29/2017 19:16:24 HEART BEAT 66.0 {beats}/min 05/29/2017 19:16:24 BODY TEMPERATURE 97.6 [degF] 05/30/2017 1:58:00 HEART BEAT 61.0 {beats}/min 05/30/2017 1:58:00 RESPIRATION RATE 18.0 /min 05/30/2017 1:58:00 INTRAVASCULAR SYSTOLIC 147.0 mm[Hg] 05/30/2017 1:58:00 INTRAVASCULAR DIASTOLIC 60.0 mm[Hg] 05/30/2017 1:58:00 RESPIRATION RATE 18.0 /min 05/30/2017 3:44:19 INTRAVASCULAR SYSTOLIC 147.0 mm[Hg] 05/30/2017 3:44:19 INTRAVASCULAR DIASTOLIC 60.0 mm[Hg] 05/30/2017 3:44:19 BODY TEMPERATURE 97.6 [degF] 05/30/2017 3:44:19 HEART BEAT 61.0 {beats}/min 05/30/2017 3:44:19 RESPIRATION RATE 18.0 /min 05/30/2017 9:16:12 INTRAVASCULAR SYSTOLIC 140.0 mm[Hg] 05/30/2017 9:16:12 INTRAVASCULAR DIASTOLIC 62.0 mm[Hg] 05/30/2017 9:16:12 BODY TEMPERATURE 97.6 [degF] 05/30/2017 9:16:12 HEART BEAT 61.0 {beats}/min 05/30/2017 9:16:12 INTRAVASCULAR SYSTOLIC 125.0 mm[Hg] 05/30/2017 9:27:34 INTRAVASCULAR DIASTOLIC 82.0 mm[Hg] 05/30/2017 9:27:34 HEART BEAT 66.0 {beats}/min 05/30/2017 9:27:34 PAIN LEVEL 3.0 {score} 05/30/2017 22:06:08 RESPIRATION RATE 18.0 /min 05/31/2017 4:16:36 INTRAVASCULAR SYSTOLIC 131.0 mm[Hg] 05/31/2017 4:16:36 INTRAVASCULAR DIASTOLIC 78.0 mm[Hg] 05/31/2017 4:16:36 BODY TEMPERATURE 97.8 [degF] 05/31/2017 4:16:36 HEART BEAT 78.0 {beats}/min 05/31/2017 4:16:36 INTRAVASCULAR SYSTOLIC 147.0 mm[Hg] 05/31/2017 8:22:35 INTRAVASCULAR DIASTOLIC 73.0 mm[Hg] 05/31/2017 8:22:35 HEART BEAT 61.0 {beats}/min 05/31/2017 8:22:35 RESPIRATION RATE 18.0 /min 05/31/2017 9:06:42 INTRAVASCULAR SYSTOLIC 147.0 mm[Hg] 05/31/2017 9:06:42 INTRAVASCULAR DIASTOLIC 73.0 mm[Hg] 05/31/2017 9:06:42 BODY TEMPERATURE 97.8 [degF] 05/31/2017 9:06:42 HEART BEAT 61.0 {beats}/min 05/31/2017 9:06:42 RESPIRATION RATE 18.0 /min 05/31/2017 20:05:00 INTRAVASCULAR SYSTOLIC 132.0 mm[Hg] 05/31/2017 20:05:00 INTRAVASCULAR DIASTOLIC 69.0 mm[Hg] 05/31/2017 20:05:00 BODY TEMPERATURE 97.9 [degF] 05/31/2017 20:05:00 HEART BEAT 62.0 {beats}/min 05/31/2017 20:05:00 RESPIRATION RATE 18.0 /min 06/01/2017 1:21:45 INTRAVASCULAR SYSTOLIC 130.0 mm[Hg] 06/01/2017 1:21:45 INTRAVASCULAR DIASTOLIC 65.0 mm[Hg] 06/01/2017 1:21:45 BODY TEMPERATURE 96.0 [degF] 06/01/2017 1:21:45 HEART BEAT 70.0 {beats}/min 06/01/2017 1:21:45 INTRAVASCULAR SYSTOLIC 132.0 mm[Hg] 06/01/2017 8:27:21 INTRAVASCULAR DIASTOLIC 64.0 mm[Hg] 06/01/2017 8:27:21 HEART BEAT 75.0 {beats}/min 06/01/2017 8:27:21 RESPIRATION RATE 18.0 /min 06/01/2017 8:52:00 INTRAVASCULAR SYSTOLIC 132.0 mm[Hg] 06/01/2017 8:52:00 INTRAVASCULAR DIASTOLIC 64.0 mm[Hg] 06/01/2017 8:52:00 BODY TEMPERATURE 96.6 [degF] 06/01/2017 8:52:00 HEART BEAT 75.0 {beats}/min 06/01/2017 8:52:00 RESPIRATION RATE 18.0 /min 06/01/2017 19:34:53 INTRAVASCULAR SYSTOLIC 128.0 mm[Hg] 06/01/2017 19:34:53 INTRAVASCULAR DIASTOLIC 62.0 mm[Hg] 06/01/2017 19:34:53 BODY TEMPERATURE 97.2 [degF] 06/01/2017 19:34:53 HEART BEAT 74.0 {beats}/min 06/01/2017 19:34:53 INTRAVASCULAR SYSTOLIC 128.0 mm[Hg] 06/01/2017 23:12:00 INTRAVASCULAR DIASTOLIC 62.0 mm[Hg] 06/01/2017 23:12:00 BODY TEMPERATURE 98.2 [degF] 06/01/2017 23:12:00 RESPIRATION RATE 18.0 /min 06/01/2017 23:12:00 HEART BEAT 74.0 {beats}/min 06/01/2017 23:12:00 OXYGEN SATURATION 96.0 % 06/01/2017 23:12:00 OXYGEN SATURATION 95.0 % 06/02/2017 3:07:00 RESPIRATION RATE 18.0 /min 06/02/2017 4:28:30 INTRAVASCULAR SYSTOLIC 151.0 mm[Hg] 06/02/2017 4:28:30 INTRAVASCULAR DIASTOLIC 75.0 mm[Hg] 06/02/2017 4:28:30 BODY TEMPERATURE 97.6 [degF] 06/02/2017 4:28:30 HEART BEAT 56.0 {beats}/min 06/02/2017 4:28:30 INTRAVASCULAR SYSTOLIC 168.0 mm[Hg] 06/02/2017 7:46:57 INTRAVASCULAR DIASTOLIC 84.0 mm[Hg] 06/02/2017 7:46:57 HEART BEAT 71.0 {beats}/min 06/02/2017 7:46:57 RESPIRATION RATE 18.0 /min 06/02/2017 8:13:28 BODY TEMPERATURE 97.4 [degF] 06/02/2017 8:13:28 BODY WEIGHT (MEASURED) 212.0 [lb_av] 06/02/2017 14:20:00 RESPIRATION RATE 18.0 /min 06/02/2017 17:29:05 INTRAVASCULAR SYSTOLIC 155.0 mm[Hg] 06/02/2017 17:29:05 INTRAVASCULAR DIASTOLIC 64.0 mm[Hg] 06/02/2017 17:29:05 BODY TEMPERATURE 98.9 [degF] 06/02/2017 17:29:05 HEART BEAT 71.0 {beats}/min 06/02/2017 17:29:05 PAIN LEVEL 6.0 {score} 06/02/2017 20:58:33 PAIN LEVEL 1.0 {score} 06/02/2017 22:03:25 INTRAVASCULAR SYSTOLIC 149.0 mm[Hg] 06/03/2017 2:10:00 INTRAVASCULAR DIASTOLIC 64.0 mm[Hg] 06/03/2017 2:10:00 HEART BEAT 70.0 {beats}/min 06/03/2017 2:17:00 RESPIRATION RATE 18.0 /min 06/03/2017 3:17:31 INTRAVASCULAR SYSTOLIC 149.0 mm[Hg] 06/03/2017 3:17:31 INTRAVASCULAR DIASTOLIC 64.0 mm[Hg] 06/03/2017 3:17:31 BODY TEMPERATURE 98.0 [degF] 06/03/2017 3:17:31 HEART BEAT 70.0 {beats}/min 06/03/2017 3:17:31 OXYGEN SATURATION 95.0 % 06/03/2017 3:24:00 INTRAVASCULAR SYSTOLIC 173.0 mm[Hg] 06/03/2017 9:48:45 INTRAVASCULAR DIASTOLIC 99.0 mm[Hg] 06/03/2017 9:48:45 HEART BEAT 90.0 {beats}/min 06/03/2017 9:48:45 RESPIRATION RATE 18.0 /min 06/03/2017 12:12:36 INTRAVASCULAR SYSTOLIC 173.0 mm[Hg] 06/03/2017 12:12:36 INTRAVASCULAR DIASTOLIC 99.0 mm[Hg] 06/03/2017 12:12:36 BODY TEMPERATURE 98.1 [degF] 06/03/2017 12:12:36 HEART BEAT 90.0 {beats}/min 06/03/2017 12:12:36 INTRAVASCULAR SYSTOLIC 185.0 mm[Hg] 06/03/2017 20:19:00 INTRAVASCULAR DIASTOLIC 90.0 mm[Hg] 06/03/2017 20:19:00 BODY TEMPERATURE 97.6 [degF] 06/03/2017 20:19:00 RESPIRATION RATE 18.0 /min 06/03/2017 20:19:00 HEART BEAT 72.0 {beats}/min 06/03/2017 20:19:00 OXYGEN SATURATION 95.0 % 06/03/2017 20:19:00 RESPIRATION RATE 18.0 /min 06/03/2017 21:12:55 INTRAVASCULAR SYSTOLIC 156.0 mm[Hg] 06/03/2017 21:12:55 INTRAVASCULAR DIASTOLIC 88.0 mm[Hg] 06/03/2017 21:12:55 BODY TEMPERATURE 98.4 [degF] 06/03/2017 21:12:55 HEART BEAT 72.0 {beats}/min 06/03/2017 21:12:55 RESPIRATION RATE 18.0 /min 06/04/2017 4:08:33 INTRAVASCULAR SYSTOLIC 113.0 mm[Hg] 06/04/2017 4:08:33 INTRAVASCULAR DIASTOLIC 62.0 mm[Hg] 06/04/2017 4:08:33 BODY TEMPERATURE 97.9 [degF] 06/04/2017 4:08:33 HEART BEAT 60.0 {beats}/min 06/04/2017 4:08:33 OXYGEN SATURATION 93.0 % 06/04/2017 4:35:00 INTRAVASCULAR SYSTOLIC 145.0 mm[Hg] 06/04/2017 8:13:35 INTRAVASCULAR DIASTOLIC 79.0 mm[Hg] 06/04/2017 8:13:35 HEART BEAT 67.0 {beats}/min 06/04/2017 8:13:35 RESPIRATION RATE 18.0 /min 06/04/2017 9:29:29 INTRAVASCULAR SYSTOLIC 145.0 mm[Hg] 06/04/2017 9:29:29 INTRAVASCULAR DIASTOLIC 79.0 mm[Hg] 06/04/2017 9:29:29 BODY TEMPERATURE 98.2 [degF] 06/04/2017 9:29:29 HEART BEAT 67.0 {beats}/min 06/04/2017 9:29:29 RESPIRATION RATE 18.0 /min 06/04/2017 17:16:23 INTRAVASCULAR SYSTOLIC 139.0 mm[Hg] 06/04/2017 17:16:23 INTRAVASCULAR DIASTOLIC 80.0 mm[Hg] 06/04/2017 17:16:23 BODY TEMPERATURE 97.9 [degF] 06/04/2017 17:16:23 HEART BEAT 65.0 {beats}/min 06/04/2017 17:16:23 RESPIRATION RATE 18.0 /min 06/05/2017 4:32:33 INTRAVASCULAR SYSTOLIC 122.0 mm[Hg] 06/05/2017 4:32:33 INTRAVASCULAR DIASTOLIC 60.0 mm[Hg] 06/05/2017 4:32:33 BODY TEMPERATURE 97.4 [degF] 06/05/2017 4:32:33 HEART BEAT 59.0 {beats}/min 06/05/2017 4:32:33 OXYGEN SATURATION 94.0 % 06/05/2017 4:39:00 INTRAVASCULAR SYSTOLIC 164.0 mm[Hg] 06/05/2017 7:55:55 INTRAVASCULAR DIASTOLIC 86.0 mm[Hg] 06/05/2017 7:55:55 HEART BEAT 60.0 {beats}/min 06/05/2017 7:55:55 RESPIRATION RATE 18.0 /min 06/05/2017 8:43:25 BODY TEMPERATURE 97.4 [degF] 06/05/2017 8:43:25 RESPIRATION RATE 18.0 /min 06/05/2017 17:27:33 INTRAVASCULAR SYSTOLIC 152.0 mm[Hg] 06/05/2017 17:27:33 INTRAVASCULAR DIASTOLIC 83.0 mm[Hg] 06/05/2017 17:27:33 BODY TEMPERATURE 97.6 [degF] 06/05/2017 17:27:33 HEART BEAT 81.0 {beats}/min 06/05/2017 17:27:33 OXYGEN SATURATION 97.0 % 06/06/2017 0:16:00 RESPIRATION RATE 18.0 /min 06/06/2017 2:43:24 INTRAVASCULAR SYSTOLIC 152.0 mm[Hg] 06/06/2017 2:43:24 INTRAVASCULAR DIASTOLIC 69.0 mm[Hg] 06/06/2017 2:43:24 BODY TEMPERATURE 97.2 [degF] 06/06/2017 2:43:24 HEART BEAT 71.0 {beats}/min 06/06/2017 2:43:24 INTRAVASCULAR SYSTOLIC 178.0 mm[Hg] 06/06/2017 7:26:10 INTRAVASCULAR DIASTOLIC 97.0 mm[Hg] 06/06/2017 7:26:10 HEART BEAT 89.0 {beats}/min 06/06/2017 7:26:10 RESPIRATION RATE 18.0 /min 06/06/2017 9:01:32 BODY TEMPERATURE 97.6 [degF] 06/06/2017 9:01:32 RESPIRATION RATE 18.0 /min 06/06/2017 21:00:31 INTRAVASCULAR SYSTOLIC 178.0 mm[Hg] 06/06/2017 21:00:31 INTRAVASCULAR DIASTOLIC 97.0 mm[Hg] 06/06/2017 21:00:31 BODY TEMPERATURE 98.7 [degF] 06/06/2017 21:00:31 HEART BEAT 77.0 {beats}/min 06/06/2017 21:00:31 OXYGEN SATURATION 96.0 % 06/07/2017 0:09:00 RESPIRATION RATE 18.0 /min 06/07/2017 0:37:42 INTRAVASCULAR SYSTOLIC 158.0 mm[Hg] 06/07/2017 0:37:42 INTRAVASCULAR DIASTOLIC 81.0 mm[Hg] 06/07/2017 0:37:42 BODY TEMPERATURE 97.4 [degF] 06/07/2017 0:37:42 HEART BEAT 64.0 {beats}/min 06/07/2017 0:37:42 INTRAVASCULAR SYSTOLIC 149.0 mm[Hg] 06/07/2017 8:06:52 INTRAVASCULAR DIASTOLIC 76.0 mm[Hg] 06/07/2017 8:06:52 HEART BEAT 63.0 {beats}/min 06/07/2017 8:06:52 RESPIRATION RATE 18.0 /min 06/07/2017 9:01:46 BODY TEMPERATURE 97.8 [degF] 06/07/2017 9:01:46 BODY WEIGHT (MEASURED) 213.2 [lb_av] 06/07/2017 13:25:00 RESPIRATION RATE 18.0 /min 06/07/2017 20:14:20 INTRAVASCULAR SYSTOLIC 146.0 mm[Hg] 06/07/2017 20:14:20 INTRAVASCULAR DIASTOLIC 72.0 mm[Hg] 06/07/2017 20:14:20 BODY TEMPERATURE 98.1 [degF] 06/07/2017 20:14:20 HEART BEAT 69.0 {beats}/min 06/07/2017 20:14:20 PAIN LEVEL 6.0 {score} 06/07/2017 20:37:09 PAIN LEVEL 1.0 {score} 06/07/2017 22:29:03 RESPIRATION RATE 18.0 /min 06/08/2017 3:44:23 INTRAVASCULAR SYSTOLIC 137.0 mm[Hg] 06/08/2017 3:44:23 INTRAVASCULAR DIASTOLIC 74.0 mm[Hg] 06/08/2017 3:44:23 BODY TEMPERATURE 98.1 [degF] 06/08/2017 3:44:23 HEART BEAT 92.0 {beats}/min 06/08/2017 3:44:23 OXYGEN SATURATION 94.0 % 06/08/2017 4:18:00 INTRAVASCULAR SYSTOLIC 171.0 mm[Hg] 06/08/2017 7:11:00 INTRAVASCULAR DIASTOLIC 83.0 mm[Hg] 06/08/2017 7:11:00 HEART BEAT 67.0 {beats}/min 06/08/2017 7:11:00 RESPIRATION RATE 18.0 /min 06/08/2017 10:30:17 BODY TEMPERATURE 97.6 [degF] 06/08/2017 10:30:17 RESPIRATION RATE 18.0 /min 06/08/2017 20:48:42 INTRAVASCULAR SYSTOLIC 187.0 mm[Hg] 06/08/2017 20:48:42 INTRAVASCULAR DIASTOLIC 86.0 mm[Hg] 06/08/2017 20:48:42 BODY TEMPERATURE 98.2 [degF] 06/08/2017 20:48:42 HEART BEAT 60.0 {beats}/min 06/08/2017 20:48:42 RESPIRATION RATE 20.0 /min 06/09/2017 7:39:33 INTRAVASCULAR SYSTOLIC 157.0 mm[Hg] 06/09/2017 7:39:33 INTRAVASCULAR DIASTOLIC 86.0 mm[Hg] 06/09/2017 7:39:33 BODY TEMPERATURE 98.3 [degF] 06/09/2017 7:39:33 HEART BEAT 67.0 {beats}/min 06/09/2017 7:39:33 INTRAVASCULAR SYSTOLIC 131.0 mm[Hg] 06/09/2017 8:01:40 INTRAVASCULAR DIASTOLIC 52.0 mm[Hg] 06/09/2017 8:01:40 HEART BEAT 85.0 {beats}/min 06/09/2017 8:01:40 OXYGEN SATURATION 94.0 % 06/09/2017 8:05:00 RESPIRATION RATE 18.0 /min 06/09/2017 8:51:02 INTRAVASCULAR SYSTOLIC 131.0 mm[Hg] 06/09/2017 8:51:02 INTRAVASCULAR DIASTOLIC 52.0 mm[Hg] 06/09/2017 8:51:02 BODY TEMPERATURE 98.0 [degF] 06/09/2017 8:51:02 HEART BEAT 85.0 {beats}/min 06/09/2017 8:51:02 BODY WEIGHT (MEASURED) 208.6 [lb_av] 06/09/2017 14:49:00 RESPIRATION RATE 18.0 /min 06/09/2017 17:57:48 INTRAVASCULAR SYSTOLIC 128.0 mm[Hg] 06/09/2017 17:57:48 INTRAVASCULAR DIASTOLIC 62.0 mm[Hg] 06/09/2017 17:57:48 BODY TEMPERATURE 98.2 [degF] 06/09/2017 17:57:48 HEART BEAT 82.0 {beats}/min 06/09/2017 17:57:48 PAIN LEVEL 6.0 {score} 06/09/2017 20:10:16 PAIN LEVEL 1.0 {score} 06/09/2017 22:42:50 OXYGEN SATURATION 94.0 % 06/10/2017 3:47:00 RESPIRATION RATE 18.0 /min 06/10/2017 4:10:43 INTRAVASCULAR SYSTOLIC 158.0 mm[Hg] 06/10/2017 4:10:43 INTRAVASCULAR DIASTOLIC 71.0 mm[Hg] 06/10/2017 4:10:43 BODY TEMPERATURE 98.1 [degF] 06/10/2017 4:10:43 HEART BEAT 54.0 {beats}/min 06/10/2017 4:10:43 INTRAVASCULAR SYSTOLIC 158.0 mm[Hg] 06/10/2017 8:14:48 INTRAVASCULAR DIASTOLIC 83.0 mm[Hg] 06/10/2017 8:14:48 HEART BEAT 60.0 {beats}/min 06/10/2017 8:14:48 RESPIRATION RATE 18.0 /min 06/10/2017 8:28:34 BODY TEMPERATURE 98.4 [degF] 06/10/2017 8:28:34 RESPIRATION RATE 18.0 /min 06/10/2017 18:21:31 INTRAVASCULAR SYSTOLIC 162.0 mm[Hg] 06/10/2017 18:21:31 INTRAVASCULAR DIASTOLIC 82.0 mm[Hg] 06/10/2017 18:21:31 BODY TEMPERATURE 97.6 [degF] 06/10/2017 18:21:31 HEART BEAT 62.0 {beats}/min 06/10/2017 18:21:31 PAIN LEVEL 6.0 {score} 06/10/2017 20:28:32 INTRAVASCULAR SYSTOLIC 162.0 mm[Hg] 06/10/2017 21:27:00 INTRAVASCULAR DIASTOLIC 82.0 mm[Hg] 06/10/2017 21:27:00 BODY TEMPERATURE 96.3 [degF] 06/10/2017 21:27:00 RESPIRATION RATE 18.0 /min 06/10/2017 21:27:00 HEART BEAT 62.0 {beats}/min 06/10/2017 21:27:00 OXYGEN SATURATION 95.0 % 06/10/2017 21:27:00 PAIN LEVEL 1.0 {score} 06/10/2017 22:26:23 OXYGEN SATURATION 94.0 % 06/11/2017 0:40:00 RESPIRATION RATE 18.0 /min 06/11/2017 1:38:29 INTRAVASCULAR SYSTOLIC 134.0 mm[Hg] 06/11/2017 1:38:29 INTRAVASCULAR DIASTOLIC 73.0 mm[Hg] 06/11/2017 1:38:29 BODY TEMPERATURE 97.8 [degF] 06/11/2017 1:38:29 HEART BEAT 66.0 {beats}/min 06/11/2017 1:38:29 INTRAVASCULAR SYSTOLIC 155.0 mm[Hg] 06/11/2017 7:41:00 INTRAVASCULAR DIASTOLIC 70.0 mm[Hg] 06/11/2017 7:41:00 HEART BEAT 65.0 {beats}/min 06/11/2017 7:41:00 RESPIRATION RATE 18.0 /min 06/11/2017 11:32:43 BODY TEMPERATURE 97.6 [degF] 06/11/2017 11:32:43 RESPIRATION RATE 16.0 /min 06/11/2017 17:39:00 INTRAVASCULAR SYSTOLIC 165.0 mm[Hg] 06/11/2017 17:39:00 INTRAVASCULAR DIASTOLIC 73.0 mm[Hg] 06/11/2017 17:39:00 BODY TEMPERATURE 98.6 [degF] 06/11/2017 17:39:00 HEART BEAT 86.0 {beats}/min 06/11/2017 17:39:00 PAIN LEVEL 2.0 {score} 06/11/2017 19:36:54 PAIN LEVEL 0.0 {score} 06/11/2017 23:42:42 OXYGEN SATURATION 94.0 % 06/12/2017 0:53:00 RESPIRATION RATE 18.0 /min 06/12/2017 1:14:51 INTRAVASCULAR SYSTOLIC 154.0 mm[Hg] 06/12/2017 1:14:51 INTRAVASCULAR DIASTOLIC 70.0 mm[Hg] 06/12/2017 1:14:51 BODY TEMPERATURE 98.9 [degF] 06/12/2017 1:14:51 HEART BEAT 18.0 {beats}/min 06/12/2017 1:14:51 INTRAVASCULAR SYSTOLIC 161.0 mm[Hg] 06/12/2017 8:57:00 INTRAVASCULAR DIASTOLIC 73.0 mm[Hg] 06/12/2017 8:57:00 HEART BEAT 60.0 {beats}/min 06/12/2017 8:57:00 RESPIRATION RATE 18.0 /min 06/12/2017 10:33:31 RESPIRATION RATE 18.0 /min 06/12/2017 16:54:00 INTRAVASCULAR SYSTOLIC 139.0 mm[Hg] 06/12/2017 16:54:00 INTRAVASCULAR DIASTOLIC 75.0 mm[Hg] 06/12/2017 16:54:00 BODY TEMPERATURE 98.7 [degF] 06/12/2017 16:54:00 HEART BEAT 62.0 {beats}/min 06/12/2017 16:54:00 RESPIRATION RATE 18.0 /min 06/13/2017 4:41:35 INTRAVASCULAR SYSTOLIC 159.0 mm[Hg] 06/13/2017 4:41:35 INTRAVASCULAR DIASTOLIC 89.0 mm[Hg] 06/13/2017 4:41:35 BODY TEMPERATURE 98.4 [degF] 06/13/2017 4:41:35 HEART BEAT 57.0 {beats}/min 06/13/2017 4:41:35 OXYGEN SATURATION 97.0 % 06/13/2017 6:38:00 INTRAVASCULAR SYSTOLIC 163.0 mm[Hg] 06/13/2017 8:02:00 INTRAVASCULAR DIASTOLIC 75.0 mm[Hg] 06/13/2017 8:02:00 HEART BEAT 64.0 {beats}/min 06/13/2017 8:02:00 RESPIRATION RATE 18.0 /min 06/13/2017 10:17:13 BODY TEMPERATURE 97.6 [degF] 06/13/2017 10:17:13 RESPIRATION RATE 18.0 /min 06/13/2017 16:12:40 INTRAVASCULAR SYSTOLIC 142.0 mm[Hg] 06/13/2017 16:12:40 INTRAVASCULAR DIASTOLIC 72.0 mm[Hg] 06/13/2017 16:12:40 BODY TEMPERATURE 98.2 [degF] 06/13/2017 16:12:40 HEART BEAT 62.0 {beats}/min 06/13/2017 16:12:40 BODY TEMPERATURE 98.3 [degF] 06/14/2017 4:07:00 RESPIRATION RATE 18.0 /min 06/14/2017 4:08:00 OXYGEN SATURATION 94.0 % 06/14/2017 4:08:00 RESPIRATION RATE 18.0 /min 06/14/2017 6:23:02 INTRAVASCULAR SYSTOLIC 136.0 mm[Hg] 06/14/2017 6:23:02 INTRAVASCULAR DIASTOLIC 63.0 mm[Hg] 06/14/2017 6:23:02 BODY TEMPERATURE 98.3 [degF] 06/14/2017 6:23:02 HEART BEAT 59.0 {beats}/min 06/14/2017 6:23:02 INTRAVASCULAR SYSTOLIC 156.0 mm[Hg] 06/14/2017 8:08:44 INTRAVASCULAR DIASTOLIC 62.0 mm[Hg] 06/14/2017 8:08:44 HEART BEAT 56.0 {beats}/min 06/14/2017 8:08:44 PAIN LEVEL 6.0 {score} 06/14/2017 8:10:06 RESPIRATION RATE 17.0 /min 06/14/2017 8:14:57 BODY TEMPERATURE 98.6 [degF] 06/14/2017 8:14:57 PAIN LEVEL 0.0 {score} 06/14/2017 10:56:16 RESPIRATION RATE 18.0 /min 06/14/2017 17:21:10 INTRAVASCULAR SYSTOLIC 144.0 mm[Hg] 06/14/2017 17:21:10 INTRAVASCULAR DIASTOLIC 95.0 mm[Hg] 06/14/2017 17:21:10 BODY TEMPERATURE 98.0 [degF] 06/14/2017 17:21:10 HEART BEAT 61.0 {beats}/min 06/14/2017 17:21:10 OXYGEN SATURATION 94.0 % 06/15/2017 2:13:00 RESPIRATION RATE 18.0 /min 06/15/2017 2:28:04 INTRAVASCULAR SYSTOLIC 142.0 mm[Hg] 06/15/2017 2:28:04 INTRAVASCULAR DIASTOLIC 88.0 mm[Hg] 06/15/2017 2:28:04 BODY TEMPERATURE 97.5 [degF] 06/15/2017 2:28:04 HEART BEAT 57.0 {beats}/min 06/15/2017 2:28:04 INTRAVASCULAR SYSTOLIC 163.0 mm[Hg] 06/15/2017 9:09:43 INTRAVASCULAR DIASTOLIC 81.0 mm[Hg] 06/15/2017 9:09:43 HEART BEAT 67.0 {beats}/min 06/15/2017 9:09:43 RESPIRATION RATE 19.0 /min 06/15/2017 9:41:05 BODY TEMPERATURE 97.6 [degF] 06/15/2017 9:41:05 RESPIRATION RATE 18.0 /min 06/15/2017 21:38:46 INTRAVASCULAR SYSTOLIC 157.0 mm[Hg] 06/15/2017 21:38:46 INTRAVASCULAR DIASTOLIC 89.0 mm[Hg] 06/15/2017 21:38:46 BODY TEMPERATURE 97.8 [degF] 06/15/2017 21:38:46 HEART BEAT 75.0 {beats}/min 06/15/2017 21:38:46 OXYGEN SATURATION 96.0 % 06/16/2017 0:53:00 RESPIRATION RATE 18.0 /min 06/16/2017 2:49:50 INTRAVASCULAR SYSTOLIC 152.0 mm[Hg] 06/16/2017 2:49:50 INTRAVASCULAR DIASTOLIC 74.0 mm[Hg] 06/16/2017 2:49:50 BODY TEMPERATURE 98.3 [degF] 06/16/2017 2:49:50 HEART BEAT 63.0 {beats}/min 06/16/2017 2:49:50 INTRAVASCULAR SYSTOLIC 151.0 mm[Hg] 06/16/2017 8:41:08 INTRAVASCULAR DIASTOLIC 70.0 mm[Hg] 06/16/2017 8:41:08 HEART BEAT 69.0 {beats}/min 06/16/2017 8:41:08 RESPIRATION RATE 18.0 /min 06/16/2017 9:37:27 BODY TEMPERATURE 97.0 [degF] 06/16/2017 9:37:27 BODY WEIGHT (MEASURED) 210.6 [lb_av] 06/16/2017 13:40:00 RESPIRATION RATE 18.0 /min 06/16/2017 17:34:35 INTRAVASCULAR SYSTOLIC 142.0 mm[Hg] 06/16/2017 17:34:35 INTRAVASCULAR DIASTOLIC 76.0 mm[Hg] 06/16/2017 17:34:35 BODY TEMPERATURE 97.6 [degF] 06/16/2017 17:34:35 HEART BEAT 72.0 {beats}/min 06/16/2017 17:34:35 RESPIRATION RATE 18.0 /min 06/17/2017 3:56:10 INTRAVASCULAR SYSTOLIC 147.0 mm[Hg] 06/17/2017 3:56:10 INTRAVASCULAR DIASTOLIC 81.0 mm[Hg] 06/17/2017 3:56:10 BODY TEMPERATURE 98.2 [degF] 06/17/2017 3:56:10 HEART BEAT 51.0 {beats}/min 06/17/2017 3:56:10 OXYGEN SATURATION 93.0 % 06/17/2017 4:11:00 INTRAVASCULAR SYSTOLIC 155.0 mm[Hg] 06/17/2017 8:09:52 INTRAVASCULAR DIASTOLIC 79.0 mm[Hg] 06/17/2017 8:09:52 HEART BEAT 61.0 {beats}/min 06/17/2017 8:09:52 RESPIRATION RATE 18.0 /min 06/17/2017 8:27:40 INTRAVASCULAR SYSTOLIC 155.0 mm[Hg] 06/17/2017 8:27:40 INTRAVASCULAR DIASTOLIC 79.0 mm[Hg] 06/17/2017 8:27:40 BODY TEMPERATURE 98.2 [degF] 06/17/2017 8:27:40 HEART BEAT 61.0 {beats}/min 06/17/2017 8:27:40 RESPIRATION RATE 18.0 /min 06/17/2017 17:56:30 INTRAVASCULAR SYSTOLIC 151.0 mm[Hg] 06/17/2017 17:56:30 INTRAVASCULAR DIASTOLIC 61.0 mm[Hg] 06/17/2017 17:56:30 BODY TEMPERATURE 97.9 [degF] 06/17/2017 17:56:30 HEART BEAT 61.0 {beats}/min 06/17/2017 17:56:30 RESPIRATION RATE 18.0 /min 06/18/2017 6:52:00 INTRAVASCULAR SYSTOLIC 119.0 mm[Hg] 06/18/2017 6:52:00 INTRAVASCULAR DIASTOLIC 54.0 mm[Hg] 06/18/2017 6:52:00 BODY TEMPERATURE 97.5 [degF] 06/18/2017 6:52:00 HEART BEAT 70.0 {beats}/min 06/18/2017 6:52:00 INTRAVASCULAR SYSTOLIC 139.0 mm[Hg] 06/18/2017 7:41:55 INTRAVASCULAR DIASTOLIC 87.0 mm[Hg] 06/18/2017 7:41:55 HEART BEAT 78.0 {beats}/min 06/18/2017 7:41:55 OXYGEN SATURATION 94.0 % 06/18/2017 7:50:00 RESPIRATION RATE 18.0 /min 06/18/2017 8:29:34 INTRAVASCULAR SYSTOLIC 139.0 mm[Hg] 06/18/2017 8:29:34 INTRAVASCULAR DIASTOLIC 87.0 mm[Hg] 06/18/2017 8:29:34 BODY TEMPERATURE 97.8 [degF] 06/18/2017 8:29:34 HEART BEAT 78.0 {beats}/min 06/18/2017 8:29:34 RESPIRATION RATE 18.0 /min 06/18/2017 21:54:16 INTRAVASCULAR SYSTOLIC 141.0 mm[Hg] 06/18/2017 21:54:16 INTRAVASCULAR DIASTOLIC 85.0 mm[Hg] 06/18/2017 21:54:16 BODY TEMPERATURE 98.0 [degF] 06/18/2017 21:54:16 HEART BEAT 75.0 {beats}/min 06/18/2017 21:54:16 INTRAVASCULAR SYSTOLIC 138.0 mm[Hg] 06/19/2017 7:15:28 INTRAVASCULAR DIASTOLIC 72.0 mm[Hg] 06/19/2017 7:15:28 HEART BEAT 69.0 {beats}/min 06/19/2017 7:15:28 RESPIRATION RATE 18.0 /min 06/19/2017 7:22:09 INTRAVASCULAR SYSTOLIC 143.0 mm[Hg] 06/19/2017 7:22:09 INTRAVASCULAR DIASTOLIC 56.0 mm[Hg] 06/19/2017 7:22:09 BODY TEMPERATURE 97.9 [degF] 06/19/2017 7:22:09 HEART BEAT 86.0 {beats}/min 06/19/2017 7:22:09 OXYGEN SATURATION 98.0 % 06/19/2017 7:30:00 RESPIRATION RATE 18.0 /min 06/19/2017 21:47:48 INTRAVASCULAR SYSTOLIC 139.0 mm[Hg] 06/19/2017 21:47:48 INTRAVASCULAR DIASTOLIC 62.0 mm[Hg] 06/19/2017 21:47:48 BODY TEMPERATURE 97.6 [degF] 06/19/2017 21:47:48 HEART BEAT 88.0 {beats}/min 06/19/2017 21:47:48 OXYGEN SATURATION 95.0 % 06/20/2017 1:07:00 RESPIRATION RATE 18.0 /min 06/20/2017 1:25:37 INTRAVASCULAR SYSTOLIC 136.0 mm[Hg] 06/20/2017 1:25:37 INTRAVASCULAR DIASTOLIC 73.0 mm[Hg] 06/20/2017 1:25:37 BODY TEMPERATURE 97.9 [degF] 06/20/2017 1:25:37 HEART BEAT 70.0 {beats}/min 06/20/2017 1:25:37 INTRAVASCULAR SYSTOLIC 158.0 mm[Hg] 06/20/2017 9:06:23 INTRAVASCULAR DIASTOLIC 78.0 mm[Hg] 06/20/2017 9:06:23 HEART BEAT 84.0 {beats}/min 06/20/2017 9:06:23 RESPIRATION RATE 18.0 /min 06/20/2017 10:15:22 BODY TEMPERATURE 97.6 [degF] 06/20/2017 10:15:22 RESPIRATION RATE 18.0 /min 06/20/2017 18:37:55 INTRAVASCULAR SYSTOLIC 168.0 mm[Hg] 06/20/2017 18:37:55 INTRAVASCULAR DIASTOLIC 71.0 mm[Hg] 06/20/2017 18:37:55 BODY TEMPERATURE 97.6 [degF] 06/20/2017 18:37:55 HEART BEAT 61.0 {beats}/min 06/20/2017 18:37:55 OXYGEN SATURATION 96.0 % 06/21/2017 0:40:00 RESPIRATION RATE 18.0 /min 06/21/2017 1:05:39 INTRAVASCULAR SYSTOLIC 180.0 mm[Hg] 06/21/2017 1:05:39 INTRAVASCULAR DIASTOLIC 87.0 mm[Hg] 06/21/2017 1:05:39 BODY TEMPERATURE 98.2 [degF] 06/21/2017 1:05:39 HEART BEAT 55.0 {beats}/min 06/21/2017 1:05:39 INTRAVASCULAR SYSTOLIC 163.0 mm[Hg] 06/21/2017 8:00:53 INTRAVASCULAR DIASTOLIC 88.0 mm[Hg] 06/21/2017 8:00:53 HEART BEAT 77.0 {beats}/min 06/21/2017 8:00:53 RESPIRATION RATE 18.0 /min 06/21/2017 8:44:28 BODY TEMPERATURE 97.4 [degF] 06/21/2017 8:44:28 RESPIRATION RATE 18.0 /min 06/21/2017 17:55:41 INTRAVASCULAR SYSTOLIC 155.0 mm[Hg] 06/21/2017 17:55:41 INTRAVASCULAR DIASTOLIC 89.0 mm[Hg] 06/21/2017 17:55:41 BODY TEMPERATURE 97.6 [degF] 06/21/2017 17:55:41 HEART BEAT 75.0 {beats}/min 06/21/2017 17:55:41 RESPIRATION RATE 18.0 /min 06/22/2017 4:48:34 INTRAVASCULAR SYSTOLIC 153.0 mm[Hg] 06/22/2017 4:48:34 INTRAVASCULAR DIASTOLIC 64.0 mm[Hg] 06/22/2017 4:48:34 BODY TEMPERATURE 97.9 [degF] 06/22/2017 4:48:34 HEART BEAT 58.0 {beats}/min 06/22/2017 4:48:34 OXYGEN SATURATION 95.0 % 06/22/2017 6:18:00 INTRAVASCULAR SYSTOLIC 132.0 mm[Hg] 06/22/2017 7:57:48 INTRAVASCULAR DIASTOLIC 76.0 mm[Hg] 06/22/2017 7:57:48 HEART BEAT 60.0 {beats}/min 06/22/2017 7:57:48 RESPIRATION RATE 18.0 /min 06/22/2017 9:05:56 BODY TEMPERATURE 97.6 [degF] 06/22/2017 9:05:56 PAIN LEVEL 6.0 {score} 06/22/2017 19:54:25 BODY TEMPERATURE 98.1 [degF] 06/22/2017 22:00:00 HEART BEAT 88.0 {beats}/min 06/22/2017 22:00:00 RESPIRATION RATE 22.0 /min 06/22/2017 22:00:00 INTRAVASCULAR SYSTOLIC 122.0 mm[Hg] 06/22/2017 22:00:00 INTRAVASCULAR DIASTOLIC 65.0 mm[Hg] 06/22/2017 22:00:00 BODY TEMPERATURE 98.3 [degF] 06/22/2017 22:15:00 HEART BEAT 88.0 {beats}/min 06/22/2017 22:15:00 RESPIRATION RATE 20.0 /min 06/22/2017 22:15:00 INTRAVASCULAR SYSTOLIC 148.0 mm[Hg] 06/22/2017 22:15:00 INTRAVASCULAR DIASTOLIC 85.0 mm[Hg] 06/22/2017 22:15:00 BODY TEMPERATURE 98.6 [degF] 06/22/2017 22:30:00 HEART BEAT 88.0 {beats}/min 06/22/2017 22:30:00 RESPIRATION RATE 20.0 /min 06/22/2017 22:30:00 INTRAVASCULAR SYSTOLIC 152.0 mm[Hg] 06/22/2017 22:30:00 INTRAVASCULAR DIASTOLIC 88.0 mm[Hg] 06/22/2017 22:30:00 BODY TEMPERATURE 98.4 [degF] 06/22/2017 22:45:00 HEART BEAT 92.0 {beats}/min 06/22/2017 22:45:00 RESPIRATION RATE 20.0 /min 06/22/2017 22:45:00 INTRAVASCULAR SYSTOLIC 148.0 mm[Hg] 06/22/2017 22:45:00 INTRAVASCULAR DIASTOLIC 82.0 mm[Hg] 06/22/2017 22:45:00 BODY TEMPERATURE 98.3 [degF] 06/22/2017 23:00:00 HEART BEAT 88.0 {beats}/min 06/22/2017 23:00:00 RESPIRATION RATE 20.0 /min 06/22/2017 23:00:00 INTRAVASCULAR SYSTOLIC 152.0 mm[Hg] 06/22/2017 23:00:00 INTRAVASCULAR DIASTOLIC 82.0 mm[Hg] 06/22/2017 23:00:00 BODY TEMPERATURE 98.2 [degF] 06/22/2017 23:30:00 HEART BEAT 67.0 {beats}/min 06/22/2017 23:30:00 RESPIRATION RATE 18.0 /min 06/22/2017 23:30:00 INTRAVASCULAR SYSTOLIC 145.0 mm[Hg] 06/22/2017 23:30:00 INTRAVASCULAR DIASTOLIC 60.0 mm[Hg] 06/22/2017 23:30:00 RESPIRATION RATE 18.0 /min 06/22/2017 23:47:51 INTRAVASCULAR SYSTOLIC 136.0 mm[Hg] 06/22/2017 23:47:51 INTRAVASCULAR DIASTOLIC 74.0 mm[Hg] 06/22/2017 23:47:51 BODY TEMPERATURE 98.2 [degF] 06/22/2017 23:47:51 HEART BEAT 62.0 {beats}/min 06/22/2017 23:47:51 BODY TEMPERATURE 98.2 [degF] 06/23/2017 HEART BEAT 67.0 {beats}/min 06/23/2017 RESPIRATION RATE 18.0 /min 06/23/2017 INTRAVASCULAR SYSTOLIC 140.0 mm[Hg] 06/23/2017 INTRAVASCULAR DIASTOLIC 60.0 mm[Hg] 06/23/2017 PAIN LEVEL 2.0 {score} 06/23/2017 0:03:51 BODY TEMPERATURE 98.2 [degF] 06/23/2017 1:00:00 HEART BEAT 67.0 {beats}/min 06/23/2017 1:00:00 RESPIRATION RATE 18.0 /min 06/23/2017 1:00:00 INTRAVASCULAR SYSTOLIC 140.0 mm[Hg] 06/23/2017 1:00:00 INTRAVASCULAR DIASTOLIC 60.0 mm[Hg] 06/23/2017 1:00:00 PAIN LEVEL 2.0 {score} 06/23/2017 1:40:00 PAIN LEVEL 3.0 {score} 06/23/2017 1:42:00 BODY TEMPERATURE 98.2 [degF] 06/23/2017 2:00:00 HEART BEAT 64.0 {beats}/min 06/23/2017 2:00:00 RESPIRATION RATE 18.0 /min 06/23/2017 2:00:00 INTRAVASCULAR SYSTOLIC 135.0 mm[Hg] 06/23/2017 2:00:00 INTRAVASCULAR DIASTOLIC 60.0 mm[Hg] 06/23/2017 2:00:00 BODY TEMPERATURE 98.2 [degF] 06/23/2017 3:00:00 HEART BEAT 64.0 {beats}/min 06/23/2017 3:00:00 RESPIRATION RATE 18.0 /min 06/23/2017 3:00:00 INTRAVASCULAR SYSTOLIC 135.0 mm[Hg] 06/23/2017 3:00:00 INTRAVASCULAR DIASTOLIC 60.0 mm[Hg] 06/23/2017 3:00:00 BODY TEMPERATURE 98.2 [degF] 06/23/2017 4:00:00 HEART BEAT 64.0 {beats}/min 06/23/2017 4:00:00 RESPIRATION RATE 18.0 /min 06/23/2017 4:00:00 INTRAVASCULAR SYSTOLIC 137.0 mm[Hg] 06/23/2017 4:00:00 INTRAVASCULAR DIASTOLIC 62.0 mm[Hg] 06/23/2017 4:00:00 RESPIRATION RATE 18.0 /min 06/23/2017 4:45:21 INTRAVASCULAR SYSTOLIC 145.0 mm[Hg] 06/23/2017 4:45:21 INTRAVASCULAR DIASTOLIC 58.0 mm[Hg] 06/23/2017 4:45:21 BODY TEMPERATURE 98.2 [degF] 06/23/2017 4:45:21 HEART BEAT 65.0 {beats}/min 06/23/2017 4:45:21 BODY TEMPERATURE 98.0 [degF] 06/23/2017 5:00:00 HEART BEAT 60.0 {beats}/min 06/23/2017 5:00:00 RESPIRATION RATE 18.0 /min 06/23/2017 5:00:00 INTRAVASCULAR SYSTOLIC 129.0 mm[Hg] 06/23/2017 5:00:00 INTRAVASCULAR DIASTOLIC 59.0 mm[Hg] 06/23/2017 5:00:00 BODY TEMPERATURE 98.0 [degF] 06/23/2017 8:02:00 BODY TEMPERATURE 98.3 [degF] 06/23/2017 9:00:00 HEART BEAT 76.0 {beats}/min 06/23/2017 9:00:00 RESPIRATION RATE 18.0 /min 06/23/2017 9:00:00 INTRAVASCULAR SYSTOLIC 144.0 mm[Hg] 06/23/2017 9:00:00 INTRAVASCULAR DIASTOLIC 89.0 mm[Hg] 06/23/2017 9:00:00 INTRAVASCULAR SYSTOLIC 144.0 mm[Hg] 06/23/2017 9:51:03 INTRAVASCULAR DIASTOLIC 89.0 mm[Hg] 06/23/2017 9:51:03 HEART BEAT 76.0 {beats}/min 06/23/2017 9:51:03 RESPIRATION RATE 18.0 /min 06/23/2017 10:44:23 INTRAVASCULAR SYSTOLIC 144.0 mm[Hg] 06/23/2017 10:44:23 INTRAVASCULAR DIASTOLIC 89.0 mm[Hg] 06/23/2017 10:44:23 BODY TEMPERATURE 98.3 [degF] 06/23/2017 10:44:23 HEART BEAT 76.0 {beats}/min 06/23/2017 10:44:23 BODY WEIGHT (MEASURED) 216.2 [lb_av] 06/23/2017 12:44:00 BODY TEMPERATURE 98.0 [degF] 06/23/2017 13:00:00 HEART BEAT 72.0 {beats}/min 06/23/2017 13:00:00 RESPIRATION RATE 18.0 /min 06/23/2017 13:00:00 INTRAVASCULAR SYSTOLIC 137.0 mm[Hg] 06/23/2017 13:00:00 INTRAVASCULAR DIASTOLIC 75.0 mm[Hg] 06/23/2017 13:00:00 BODY TEMPERATURE 96.8 [degF] 06/23/2017 17:00:00 HEART BEAT 74.0 {beats}/min 06/23/2017 17:00:00 RESPIRATION RATE 18.0 /min 06/23/2017 17:00:00 INTRAVASCULAR SYSTOLIC 158.0 mm[Hg] 06/23/2017 17:00:00 INTRAVASCULAR DIASTOLIC 76.0 mm[Hg] 06/23/2017 17:00:00 INTRAVASCULAR SYSTOLIC 158.0 mm[Hg] 06/23/2017 18:15:00 INTRAVASCULAR DIASTOLIC 76.0 mm[Hg] 06/23/2017 18:15:00 BODY TEMPERATURE 96.8 [degF] 06/23/2017 18:15:00 RESPIRATION RATE 18.0 /min 06/23/2017 18:15:00 HEART BEAT 74.0 {beats}/min 06/23/2017 18:15:00 OXYGEN SATURATION 94.0 % 06/23/2017 18:15:00 PAIN LEVEL 6.0 {score} 06/23/2017 19:42:57 RESPIRATION RATE 18.0 /min 06/23/2017 21:41:33 INTRAVASCULAR SYSTOLIC 158.0 mm[Hg] 06/23/2017 21:41:33 INTRAVASCULAR DIASTOLIC 76.0 mm[Hg] 06/23/2017 21:41:33 BODY TEMPERATURE 96.8 [degF] 06/23/2017 21:41:33 HEART BEAT 74.0 {beats}/min 06/23/2017 21:41:33 PAIN LEVEL 1.0 {score} 06/23/2017 22:30:17 INTRAVASCULAR SYSTOLIC 157.0 mm[Hg] 06/24/2017 7:59:27 INTRAVASCULAR DIASTOLIC 70.0 mm[Hg] 06/24/2017 7:59:27 HEART BEAT 61.0 {beats}/min 06/24/2017 7:59:27 RESPIRATION RATE 18.0 /min 06/24/2017 8:29:42 INTRAVASCULAR SYSTOLIC 149.0 mm[Hg] 06/24/2017 8:29:42 INTRAVASCULAR DIASTOLIC 64.0 mm[Hg] 06/24/2017 8:29:42 BODY TEMPERATURE 97.1 [degF] 06/24/2017 8:29:42 HEART BEAT 55.0 {beats}/min 06/24/2017 8:29:42 OXYGEN SATURATION 95.0 % 06/24/2017 8:34:00 RESPIRATION RATE 18.0 /min 06/24/2017 9:21:22 BODY TEMPERATURE 97.4 [degF] 06/24/2017 9:21:22 Immunizations Vaccine Date Status Reason Influenza, seasonal, injectable 02/17/2017 Completed Influenza 07/10/2015 Refused Family Refused pneumococcal polysaccharide vaccine, 23 valent 05/25/2017 Refused Resident Refused Pneumovax Dose 1 07/10/2015 Refused Family Refused tuberculin skin test; purified protein derivative solution, intradermal 05/25/2017 13:00:00 Completed Social History Smoking Status Start Date End Date Unknown if ever smoked 06/24/2017 13:48:27
--- OUTSIDE RECORDS SUMMARY | 2018-08-31 01:41 | XMS REPORT ---
[facility] Address Unknown Phone Unavailable Care Team Providers Care Transportation Department Head Name Role Phone Unavailable Unavailable Payers Payer Name Policy Type Policy Number Effective Date Expiration Date Problems This patient has no known problems. Allergies, Adverse Reactions, Alerts Allergy Name Allergy Type Status Severity Reaction(s) Onset Date Inactive Date Treating Clinician Comments No Known Allergies DA Active U 2018-08-14 00:00:00 No Known Allergies DA Active U 2018-05-11 00:00:00 No Known Allergies DA Active U 2013-09-13 00:00:00 Medications This patient has no known medications. Results Test Description Test Time Test Comments Text Results Atomic Results Result Comments GLUBED 2018-08-25 04:39:00 GLUBED (test code=GLUBED) 104 mg/dL 74-106 Performed by certified pig machine crane operator at [facility] [id number] 04:39:00* Test Item Value Reference Range Comments GLUBED (test code=GLUBED) 135 mg/dL 74-106 Performed by certified pig machine crane operator at [facility] [id number] 17:02:00* Test Item Value Reference Range Comments GLUBED (test code=GLUBED) 133 mg/dL 74-106 Performed by certified pig machine crane operator at [facility] [id number] 12:25:00* Test Item Value Reference Range Comments GLUBED (test code=GLUBED) 134 mg/dL 74-106 Performed by certified pig machine crane operator at [facility] [id number] 05:44:00* Test Item Value Reference Range Comments GLUBED (test code=GLUBED) 99 mg/dL 74-106 Performed by certified pig machine crane operator at [facility] [id number] 20:58:00* Test Item Value Reference Range Comments GLUBED (test code=GLUBED) 96 mg/dL 74-106 Performed by certified pig machine crane operator at [facility] [id number] 17:00:00* Test Item Value Reference Range Comments GLUBED (test code=GLUBED) 104 mg/dL 74-106 Performed by certified pig machine crane operator at [facility] [id number] 12:55:00* Test Item Value Reference Range Comments GLUBED (test code=GLUBED) 150 mg/dL 74-106 Performed by certified pig machine crane operator at [facility] [id number] 12:55:00* Test Item Value Reference Range Comments GLUBED (test code=GLUBED) 142 mg/dL 74-106 Performed by certified pig machine crane operator at [facility] [id number] 12:55:00* Test Item Value Reference Range Comments GLUBED (test code=GLUBED) 125 mg/dL 74-106 Performed by certified pig machine crane operator at [facility] [id number] 12:55:00* Test Item Value Reference Range Comments GLUBED (test code=GLUBED) 86 mg/dL 74-106 Performed by certified pig machine crane operator at [facility] [id number] 12:55:00* Test Item Value Reference Range Comments GLUBED (test code=GLUBED) 141 mg/dL 74-106 Performed by certified pig machine crane operator at [facility] [id number] 12:55:00* Test Item Value Reference Range Comments GLUBED (test code=GLUBED) 97 mg/dL 74-106 Performed by certified pig machine crane operator at [facility] [id number] 11:49:00* Test Item Value Reference Range Comments GLUBED (test code=GLUBED) 171 mg/dL 74-106 Performed by certified pig machine crane operator at [facility] [id number] 06:40:00* Test Item Value Reference Range Comments GLUBED (test code=GLUBED) 142 mg/dL 74-106 [facility] pig [facility] COMPREHENSIVE METABOLIC [id number] 04:48:00* Test Item Value Reference Range Comments SODIUM (test code=NA) 141 mmol/L 136-145 POTASSIUM (test code=K) 3.8 mmol/L 3.5-5.1 CHLORIDE (test code=CL) 105.0 mmol/L 98-107 CARBON DIOXIDE (test code=CO2) 26.0 mmol/L 21-32 ANION GAP (test code=GAP) 13.8 10-20 GLUCOSE (test code=GLU) 147 mg/dL 74-106 BLOOD UREA NITROGEN (test code=BUN) 30 mg/dL 7-18 GLOMERULAR FILTRATION RATE (test code=GFR) 58 mL/min >=60 Estimated GFR by using Modified MDRD formula.Chronic kidney disease is defined as either kidney damageor GFR <60 mL/min/1.73 m2 for >3 months. CREATININE (test code=CREAT) 1.20 mg/dL 0.7-1.3 BUN/CREATININE RATIO (test code=BUN/CREA) 25.0 10-20 TOTAL PROTEIN (test code=PROT) 6.6 gram/dL 6.4-8.2 ALBUMIN (test code=ALB) 3.5 g/dL 3.4-5.0 GLOBULIN (test code=GLOB) 3.1 gram/dL 2.7-4.2 ALBUMIN/GLOBULIN RATIO (test code=A/G) 1.1 0.75-1.50 CALCIUM (test code=CA) 9.0 mg/dL 8.5-10.1 BILIRUBIN TOTAL (test code=BILT) 0.30 mg/dL 0.0-1.0 SGOT/AST (test code=AST) 19 IUnit/L 15-37 SGPT/ALT (test code=ALT) 24 IUnit/L 12-78 ALKALINE PHOSPHATASE TOTAL (test code=ALKP) 134 IUnit/L 45-117 Note change in reference range due to change in reagent. COMPREHENSIVE METABOLIC [id number] 04:19:00* Test Item Value Reference Range Comments SODIUM (test code=NA) 141 mmol/L 136-145 POTASSIUM (test code=K) 3.8 mmol/L 3.5-5.1 CHLORIDE (test code=CL) 105.0 mmol/L 98-107 CARBON DIOXIDE (test code=CO2) mmol/L 21-32 ANION GAP (test code=GAP) 10-20 GLUCOSE (test code=GLU) mg/dL 74-106 BLOOD UREA NITROGEN (test code=BUN) mg/dL 7-18 GLOMERULAR FILTRATION RATE (test code=GFR) mL/min >=60 CREATININE (test code=CREAT) mg/dL 0.7-1.3 BUN/CREATININE RATIO (test code=BUN/CREA) 10-20 TOTAL PROTEIN (test code=PROT) gram/dL 6.4-8.2 ALBUMIN (test code=ALB) g/dL 3.4-5.0 GLOBULIN (test code=GLOB) gram/dL 2.7-4.2 ALBUMIN/GLOBULIN RATIO (test code=A/G) 0.75-1.50 CALCIUM (test code=CA) mg/dL 8.5-10.1 BILIRUBIN TOTAL (test code=BILT) mg/dL 0.0-1.0 SGOT/AST (test code=AST) IUnit/L 15-37 SGPT/ALT (test code=ALT) IUnit/L 12-78 ALKALINE PHOSPHATASE TOTAL (test code=ALKP) IUnit/L 45-117 CBC W/AUTO [id number] 04:08:00* Test Item Value Reference Range Comments WHITE BLOOD CELL (test code=WBC) 12.1 K/mm3 4.5-12.5 RED BLOOD CELL (test code=RBC) 3.45 mill/mm3 4.0-5.8 HEMOGLOBIN (test code=HGB) 9.3 gram/dL 13.0-17.5 HEMATOCRIT (test code=HCT) 29.6 % 42.0-52.0 MEAN CELL VOLUME (test code=MCV) 85.8 fL 80-98 MEAN CELL HGB (test code=MCH) 27.0 picogram 27.0-33.0 MEAN CELL HGB CONCETRATION (test code=MCHC) 31.4 gram/dL 33.0-36.0 RED CELL DISTRIBUTION WIDTH (test code=RDW) 15.9 % 11.6-16.2 RED CELL DISTRIBUTION WIDTH SD (test code=RDW-SD) 49.9 fL 37.0-51.0 PLATELET COUNT (test code=PLT) 415 K/mm3 150-450 MEAN PLATELET VOLUME (test code=MPV) 9.3 fL 6.7-11.0 NEUTROPHIL % (test code=NT%) 68.6 % 39.0-69.0 IMMATURE GRANULOCYTE % (test code=IG%) 0.4 % 0.0-5.0 LYMPHOCYTE % (test code=LY%) 19.2 % 25.0-55.0 MONOCYTE % (test code=MO%) 7.8 % 0.0-10.0 EOSINOPHIL % (test code=EO%) 3.3 % 0.0-5.0 BASOPHIL % (test code=BA%) 0.7 % 0.0-1.0 NUCLEATED RBC % (test code=NRBC%) 0.0 % 0-0 NEUTROPHIL # (test code=NT#) 8.29 K/mm3 1.8-7.7 IMMATURE GRANULOCYTE # (test code=IG#) 0.05 x10 3/uL 0-0.03 LYMPHOCYTE # (test code=LY#) 2.32 K/mm3 1.0-5.0 MONOCYTE # (test code=MO#) 0.94 K/mm3 0-0.8 EOSINOPHIL # (test code=EO#) 0.40 K/mm3 0.0-0.5 BASOPHIL # (test code=BA#) 0.08 K/mm3 0.0-0.2 NUCLEATED RBC # (test code=NRBC#) 0.00 K/mm3 0.0-0.1 [id number] 23:16:00* Test Item Value Reference Range Comments GLUBED (test code=GLUBED) 132 mg/dL 74-106 [facility] certified pig machine cr[facility] [id number] 18:51:00* Test Item Value Reference Range Comments GLUBED (test code=GLUBED) 123 mg/dL 74-106 Performed by certified pig machine crane operator at [facility] [id number] 12:41:00* Test Item Value Reference Range Comments GLUBED (test code=GLUBED) 120 mg/dL 74-106 Performed by certified pig machine crane operator at [facility] [id number] 05:53:00* Test Item Value Reference Range Comments GLUBED (test code=GLUBED) 97 mg/dL 74-106 Performed by certified pig machine crane operator at [facility] [id number] 20:10:00* Test Item Value Reference Range Comments GLUBED (test code=GLUBED) 109 mg/dL 74-106 Performed by certified pig machine crane operator at [facility] [id number] 15:48:00* Test Item Value Reference Range Comments GLUBED (test code=GLUBED) 153 mg/dL 74-106 Performed by certified pig machine crane operator at [facility] [id number] 11:27:00* Test Item Value Reference Range Comments GLUBED (test code=GLUBED) 138 mg/dL 74-106 Performed by certified pig machine crane operator at [facility] [id number] 06:47:00* Test Item Value Reference Range Comments GLUBED (test code=GLUBED) 124 mg/dL 74-106 Performed by certified pig machine crane operator at [facility] [id number] 20:46:00* Test Item Value Reference Range Comments GLUBED (test code=GLUBED) 192 mg/dL 74-106 Performed by certified pig machine crane operator at [facility] [id number] 15:16:00* Test Item Value Reference Range Comments GLUBED (test code=GLUBED) 117 mg/dL 74-106 Performed by certified pig machine crane operator at [facility] VANCOMYCIN [id number] 12:59:00* Test Item Value Reference Range Comments VANCOMYCIN TROUGH (test code=VANCT) 11.1 ug/mL 10-20 [id number] 11:51:00* Test Item Value Reference Range Comments GLUBED (test code=GLUBED) 179 mg/dL 74-106 Performed by certified pig machine crane operator at [facility] [id number] 07:13:00* Test Item Value Reference Range Comments GLUBED (test code=GLUBED) 92 mg/dL 74-106 Performed by certified pig machine crane operator at [facility] [id number] 20:48:00* Test Item Value Reference Range Comments GLUBED (test code=GLUBED) 93 mg/dL 74-106 Performed by certified pig machine crane operator at [facility] CBC W/AUTO [id number] 16:41:00* Test Item Value Reference Range Comments WHITE BLOOD CELL (test code=WBC) 7.2 K/mm3 4.5-12.5 RED BLOOD CELL (test code=RBC) 3.21 mill/mm3 4.0-5.8 HEMOGLOBIN (test code=HGB) 8.6 gram/dL 13.0-17.5 HEMATOCRIT (test code=HCT) 28.4 % 42.0-52.0 MEAN CELL VOLUME (test code=MCV) 88.5 fL 80-98 MEAN CELL HGB (test code=MCH) 26.8 picogram 27.0-33.0 MEAN CELL HGB CONCETRATION (test code=MCHC) 30.3 gram/dL 33.0-36.0 RED CELL DISTRIBUTION WIDTH (test code=RDW) 15.9 % 11.6-16.2 RED CELL DISTRIBUTION WIDTH SD (test code=RDW-SD) 51.7 fL 37.0-51.0 PLATELET COUNT (test code=PLT) 346 K/mm3 150-450 RESULT VERIFIED BY REPEAT ANALYSIS MEAN PLATELET VOLUME (test code=MPV) 9.9 fL 6.7-11.0 NEUTROPHIL % (test code=NT%) 68.7 % 39.0-69.0 IMMATURE GRANULOCYTE % (test code=IG%) 0.6 % 0.0-5.0 LYMPHOCYTE % (test code=LY%) 14.5 % 25.0-55.0 MONOCYTE % (test code=MO%) 8.2 % 0.0-10.0 EOSINOPHIL % (test code=EO%) 7.3 % 0.0-5.0 BASOPHIL % (test code=BA%) 0.7 % 0.0-1.0 NUCLEATED RBC % (test code=NRBC%) 0.0 % 0-0 NEUTROPHIL # (test code=NT#) 4.97 K/mm3 1.8-7.7 IMMATURE GRANULOCYTE # (test code=IG#) 0.04 x10 3/uL 0-0.03 LYMPHOCYTE # (test code=LY#) 1.05 K/mm3 1.0-5.0 MONOCYTE # (test code=MO#) 0.59 K/mm3 0-0.8 EOSINOPHIL # (test code=EO#) 0.53 K/mm3 0.0-0.5 BASOPHIL # (test code=BA#) 0.05 K/mm3 0.0-0.2 NUCLEATED RBC # (test code=NRBC#) 0.00 K/mm3 0.0-0.1 MANUAL DIFF REQUIRED (test code=MDIFF) NO [id number] 16:16:00* Test Item Value Reference Range Comments GLUBED (test code=GLUBED) 199 mg/dL 74-106 Performed by certified pig machine crane operator at [facility] [id number] 16:16:00* Test Item Value Reference Range Comments GLUBED (test code=GLUBED) 41 mg/dL 74-106 [facility] certified pig machine crane [facility] [id number] 15:42:00* Test Item Value Reference Range Comments GLUBED (test code=GLUBED) 217 mg/dL 74-106 Performed by certified pig machine crane operator at [facility] [id number] 11:43:00* Test Item Value Reference Range Comments AMMONIA (test code=AMM) 18 umol/L 11-32 [id number] 05:44:00* Test Item Value Reference Range Comments GLUBED (test code=GLUBED) 123 mg/dL 74-106 Performed by certified pig machine crane operator at [facility] [id number] 20:27:00* Test Item Value Reference Range Comments GLUBED (test code=GLUBED) 129 mg/dL 74-106 Performed by certified pig machine crane operator at [facility] [id number] 19:07:00* Test Item Value Reference Range Comments GLUBED (test code=GLUBED) 158 mg/dL 74-106 Performed by certified pig machine crane operator at [facility] [id number] 11:26:00* Test Item Value Reference Range Comments GLUBED (test code=GLUBED) 133 mg/dL 74-106 Performed by certified pig machine crane operator at [facility] [id number] 07:04:00* Test Item Value Reference Range Comments GLUBED (test code=GLUBED) 112 mg/dL 74-106 Performed by certified pig machine crane operator at [facility] COMPREHENSIVE METABOLIC [id number] 06:54:00* Test Item Value Reference Range Comments SODIUM (test code=NA) 142 mmol/L 136-145 POTASSIUM (test code=K) 4.1 mmol/L 3.5-5.1 CHLORIDE (test code=CL) 109.0 mmol/L 98-107 CARBON DIOXIDE (test code=CO2) 27.0 mmol/L 21-32 ANION GAP (test code=GAP) 10.1 10-20 GLUCOSE (test code=GLU) 114 mg/dL 74-106 BLOOD UREA NITROGEN (test code=BUN) 33 mg/dL 7-18 GLOMERULAR FILTRATION RATE (test code=GFR) > 60 mL/min >=60 Estimated GFR by using Modified MDRD formula.Chronic kidney disease is defined as either kidney damageor GFR <60 mL/min/1.73 m2 for >3 months. CREATININE (test code=CREAT) 1.00 mg/dL 0.7-1.3 BUN/CREATININE RATIO (test code=BUN/CREA) 33.0 10-20 TOTAL PROTEIN (test code=PROT) 5.4 gram/dL 6.4-8.2 ALBUMIN (test code=ALB) 2.5 g/dL 3.4-5.0 GLOBULIN (test code=GLOB) 2.9 gram/dL 2.7-4.2 ALBUMIN/GLOBULIN RATIO (test code=A/G) 0.9 0.75-1.50 CALCIUM (test code=CA) 8.5 mg/dL 8.5-10.1 BILIRUBIN TOTAL (test code=BILT) 0.30 mg/dL 0.0-1.0 SGOT/AST (test code=AST) 10 IUnit/L 15-37 SGPT/ALT (test code=ALT) 13 IUnit/L 12-78 ALKALINE PHOSPHATASE TOTAL (test code=ALKP) 93 IUnit/L 45-117 Note change in reference range due to change in reagent. FE W/TOTAL IRON BINDING CAP.2018-08-18 06:54:00* Test Item Value Reference Range Comments SERUM IRON (test code=IRON) 37 ug/dL 50-175 TOTAL IRON BINDING CAPACITY (test code=TIBC) 232 mcg/dL 250-450 IRON SATURATION (test code=FESAT) 15.95 % 13-45 [id number] 06:54:00* Test Item Value Reference Range Comments FERRITIN (test code=MELONIE) 104 ng/mL 8-388 COMPREHENSIVE METABOLIC [id number] 06:44:00* Test Item Value Reference Range Comments SODIUM (test code=NA) 142 mmol/L 136-145 POTASSIUM (test code=K) 4.1 mmol/L 3.5-5.1 CHLORIDE (test code=CL) 109.0 mmol/L 98-107 CARBON DIOXIDE (test code=CO2) mmol/L 21-32 ANION GAP (test code=GAP) 10-20 GLUCOSE (test code=GLU) mg/dL 74-106 BLOOD UREA NITROGEN (test code=BUN) mg/dL 7-18 GLOMERULAR FILTRATION RATE (test code=GFR) mL/min >=60 CREATININE (test code=CREAT) mg/dL 0.7-1.3 BUN/CREATININE RATIO (test code=BUN/CREA) 10-20 TOTAL PROTEIN (test code=PROT) gram/dL 6.4-8.2 ALBUMIN (test code=ALB) g/dL 3.4-5.0 GLOBULIN (test code=GLOB) gram/dL 2.7-4.2 ALBUMIN/GLOBULIN RATIO (test code=A/G) 0.75-1.50 CALCIUM (test code=CA) mg/dL 8.5-10.1 BILIRUBIN TOTAL (test code=BILT) mg/dL 0.0-1.0 SGOT/AST (test code=AST) IUnit/L 15-37 SGPT/ALT (test code=ALT) IUnit/L 12-78 ALKALINE PHOSPHATASE TOTAL (test code=ALKP) IUnit/L 45-117 FE W/TOTAL IRON BINDING CAP.2018-08-18 06:44:00* Test Item Value Reference Range Comments SERUM IRON (test code=IRON) ug/dL 50-175 TOTAL IRON BINDING CAPACITY (test code=TIBC) mcg/dL 250-450 IRON SATURATION (test code=FESAT) % 13-45 [id number] 06:44:00* Test Item Value Reference Range Comments FERRITIN (test code=MELONIE) ng/mL 8-388 CBC W/AUTO [id number] 06:34:00* Test Item Value Reference Range Comments WHITE BLOOD CELL (test code=WBC) 7.4 K/mm3 4.5-12.5 RED BLOOD CELL (test code=RBC) 2.64 mill/mm3 4.0-5.8 HEMOGLOBIN (test code=HGB) 7.2 gram/dL 13.0-17.5 HEMATOCRIT (test code=HCT) 23.1 % 42.0-52.0 MEAN CELL VOLUME (test code=MCV) 87.5 fL 80-98 MEAN CELL HGB (test code=MCH) 27.3 picogram 27.0-33.0 MEAN CELL HGB CONCETRATION (test code=MCHC) 31.2 gram/dL 33.0-36.0 RED CELL DISTRIBUTION WIDTH (test code=RDW) 16.3 % 11.6-16.2 RED CELL DISTRIBUTION WIDTH SD (test code=RDW-SD) 52.4 fL 37.0-51.0 PLATELET COUNT (test code=PLT) 282 K/mm3 150-450 MEAN PLATELET VOLUME (test code=MPV) 9.5 fL 6.7-11.0 NEUTROPHIL % (test code=NT%) 53.0 % 39.0-69.0 IMMATURE GRANULOCYTE % (test code=IG%) 0.4 % 0.0-5.0 LYMPHOCYTE % (test code=LY%) 27.0 % 25.0-55.0 MONOCYTE % (test code=MO%) 11.3 % 0.0-10.0 EOSINOPHIL % (test code=EO%) 7.8 % 0.0-5.0 BASOPHIL % (test code=BA%) 0.5 % 0.0-1.0 NUCLEATED RBC % (test code=NRBC%) 0.0 % 0-0 NEUTROPHIL # (test code=NT#) 3.93 K/mm3 1.8-7.7 IMMATURE GRANULOCYTE # (test code=IG#) 0.03 x10 3/uL 0-0.03 LYMPHOCYTE # (test code=LY#) 2.00 K/mm3 1.0-5.0 MONOCYTE # (test code=MO#) 0.84 K/mm3 0-0.8 EOSINOPHIL # (test code=EO#) 0.58 K/mm3 0.0-0.5 BASOPHIL # (test code=BA#) 0.04 K/mm3 0.0-0.2 NUCLEATED RBC # (test code=NRBC#) 0.00 K/mm3 0.0-0.1 [id number] 21:05:00* Test Item Value Reference Range Comments GLUBED (test code=GLUBED) 129 mg/dL 74-106 Performed by certified pig machine crane operator at [facility] [id number] 11:40:00* Test Item Value Reference Range Comments GLUBED (test code=GLUBED) 113 mg/dL 74-106 Performed by certified pig machine crane operator at [facility] COMPREHENSIVE METABOLIC [id number] 11:22:00* Test Item Value Reference Range Comments SODIUM (test code=NA) 144 mmol/L 136-145 POTASSIUM (test code=K) 4.1 mmol/L 3.5-5.1 CHLORIDE (test code=CL) 112.0 mmol/L 98-107 CARBON DIOXIDE (test code=CO2) 27.0 mmol/L 21-32 ANION GAP (test code=GAP) 9.1 10-20 GLUCOSE (test code=GLU) 110 mg/dL 74-106 BLOOD UREA NITROGEN (test code=BUN) 29 mg/dL 7-18 GLOMERULAR FILTRATION RATE (test code=GFR) 58 mL/min >=60 Estimated GFR by using Modified MDRD formula.Chronic kidney disease is defined as either kidney damageor GFR <60 mL/min/1.73 m2 for >3 months. CREATININE (test code=CREAT) 1.20 mg/dL 0.7-1.3 BUN/CREATININE RATIO (test code=BUN/CREA) 24.2 10-20 TOTAL PROTEIN (test code=PROT) 5.5 gram/dL 6.4-8.2 ALBUMIN (test code=ALB) 2.6 g/dL 3.4-5.0 GLOBULIN (test code=GLOB) 2.9 gram/dL 2.7-4.2 ALBUMIN/GLOBULIN RATIO (test code=A/G) 0.9 0.75-1.50 CALCIUM (test code=CA) 8.7 mg/dL 8.5-10.1 BILIRUBIN TOTAL (test code=BILT) 0.40 mg/dL 0.0-1.0 SGOT/AST (test code=AST) 7 IUnit/L 15-37 SGPT/ALT (test code=ALT) 14 IUnit/L 12-78 ALKALINE PHOSPHATASE TOTAL (test code=ALKP) 100 IUnit/L 45-117 Note change in reference range due to change in reagent. THYROID STIMULATING [id number] 11:22:00* Test Item Value Reference Range Comments THYROID STIMULATING HORMONE (test code=TSH) 1.130 uIU/mL 0.36-3.74 TSH REFERENCE RANGES: EUTHYROID: 0.35 - 4.3 mIU/mL HYPO : > 5.5 mIU/mL HYPER : < 0.35 mIU/mL [id number] 11:22:00* Test Item Value Reference Range Comments GLYCOSYLATED HEMOGLOBIN (HA1C) (test code=GLYHGB) 8.9 % HbA1 4.8-6.0 ESTIMATED AVERAGE GLUCOSE (test code=EAG) 209 MG/DL CBC W/AUTO [id number] 10:46:00* Test Item Value Reference Range Comments WHITE BLOOD CELL (test code=WBC) 11.6 K/mm3 4.5-12.5 RED BLOOD CELL (test code=RBC) 2.65 mill/mm3 4.0-5.8 HEMOGLOBIN (test code=HGB) 7.3 gram/dL 13.0-17.5 HEMATOCRIT (test code=HCT) 23.6 % 42.0-52.0 MEAN CELL VOLUME (test code=MCV) 89.1 fL 80-98 MEAN CELL HGB (test code=MCH) 27.5 picogram 27.0-33.0 MEAN CELL HGB CONCETRATION (test code=MCHC) 30.9 gram/dL 33.0-36.0 RED CELL DISTRIBUTION WIDTH (test code=RDW) 17.0 % 11.6-16.2 RED CELL DISTRIBUTION WIDTH SD (test code=RDW-SD) 55.0 fL 37.0-51.0 PLATELET COUNT (test code=PLT) 284 K/mm3 150-450 MEAN PLATELET VOLUME (test code=MPV) 9.8 fL 6.7-11.0 NEUTROPHIL % (test code=NT%) 71.6 % 39.0-69.0 IMMATURE GRANULOCYTE % (test code=IG%) 0.3 % 0.0-5.0 LYMPHOCYTE % (test code=LY%) 15.3 % 25.0-55.0 MONOCYTE % (test code=MO%) 9.3 % 0.0-10.0 EOSINOPHIL % (test code=EO%) 3.1 % 0.0-5.0 BASOPHIL % (test code=BA%) 0.4 % 0.0-1.0 NUCLEATED RBC % (test code=NRBC%) 0.0 % 0-0 NEUTROPHIL # (test code=NT#) 8.27 K/mm3 1.8-7.7 IMMATURE GRANULOCYTE # (test code=IG#) 0.03 x10 3/uL 0-0.03 LYMPHOCYTE # (test code=LY#) 1.77 K/mm3 1.0-5.0 MONOCYTE # (test code=MO#) 1.07 K/mm3 0-0.8 EOSINOPHIL # (test code=EO#) 0.36 K/mm3 0.0-0.5 BASOPHIL # (test code=BA#) 0.05 K/mm3 0.0-0.2 NUCLEATED RBC # (test code=NRBC#) 0.00 K/mm3 0.0-0.1 MANUAL DIFF REQUIRED (test code=MDIFF) NO - XR CHEST 1 [id number] 08:05:00 FAX: Justo Lira MD [place]: St: [facility] FAX: Cesia Brown MD [phone] Name: JUAN KASPER [facility] : 1940 Age/S: 78/M [address] [facility] Unit #: [id number] Loc: V.[address] [place] [address] Phys: Justo Larkin MD Acct: [id number] Dis Date: Status: ADM IN PHONE #: [phone] Exam Date: 08/16/201843 FAX #: [phone] Reason: CHANGE IN LOC EXAMS: CPT CODE: [id number] XR CHEST 1 V 54029 CLINICAL HISTORY: CHANGE IN LOC TECHNIQUE: AP chest x-ray COMPARISON: Previous day. IMPRESSION: No significant interval change. Bibasilar interstitial opacities and subsegmental atelectasis. No focal consolidation or pleural effusion. Cardiomegaly. Atherosclerotic vascular calcification of the thoracic aorta. Electronically Signed by Fifi Rollins D.O. on at 0805 Reported and signed by: Fifi Rollins D.O. CC: Justo Larkin MD; Cesia Hoyt MD Technologist: KEVYN MAN JR Trnscrd Date/Time/By: 08/16/2018 (08) : By: [email or web address] Orig Print D/T: S: 0 08/16/2018 (0510) PAGE 1 Signed Re port [id number] 06:15:00* Test Item Value Reference Range Comments GLUBED (test code=GLUBED) 108 mg/dL 74-106 Performed by certified pig machine crane operator at [facility] URINALYSIS [id number] 23:02:00* Test Item Value Reference Range Comments UA COLOR (test code=COLU) YELLOW YELLOW UA APPEARANCE (test code=APPU) Cloudy CLEAR UA GLUCOSE DIPSTICK (test code=DGLUU) NEGATIVE mg/dL NEGATIVE UA BILIRUBIN DIPSTICK (test code=BILU) NEGATIVE mg/dL NEGATIVE UA KETONE DIPSTICK (test code=KETU) NEGATIVE mg/dL NEGATIVE UA SPECIFIC GRAVITY (test code=SGU) 1.011 1.001-1.035 UA BLOOD DIPSTICK (test code=USMAN) 0.2 mg/dL (2+) mg/dL NEGATIVE UA PH DIPSTICK (test code=DEVI) 6.0 5.0-8.0 UA PROTEIN DIPSTICK (test code=PROU) 100 (2+) mg/dL NEGATIVE UA UROBILINIOGEN DIPSTICK (test code=URO) Normal mg/dL NEGATIVE UA NITRITE DIPSTICK (test code=BENITA) NEGATIVE NEGATIVE UA LEUKOCYTE ESTERASE W REFLEX (test code=LEUUR) 500 Grace/uL (2+) Grace/uL NEGATIVE UA WBC (test code=WBCU) 21-50 per HPF 0-5 UA RBC (test code=RBCU) 15-25 per HPF 0-5 UA EPITHELIAL CELLS (test code=EPIU) Few (2-5/hpf) per HPF Few UA BACTERIA (test code=BACU) MODERATE per HPF NONE UA MUCUS (test code=MUCU) FEW per LPF NONE-FEW URINALYSIS [id number] 23:01:00* Test Item Value Reference Range Comments UA COLOR (test code=COLU) YELLOW YELLOW UA APPEARANCE (test code=APPU) Cloudy CLEAR UA GLUCOSE DIPSTICK (test code=DGLUU) NEGATIVE mg/dL NEGATIVE UA BILIRUBIN DIPSTICK (test code=BILU) NEGATIVE mg/dL NEGATIVE UA KETONE DIPSTICK (test code=KETU) NEGATIVE mg/dL NEGATIVE UA SPECIFIC GRAVITY (test code=SGU) 1.011 1.001-1.035 UA BLOOD DIPSTICK (test code=USMAN) 0.2 mg/dL (2+) mg/dL NEGATIVE UA PH DIPSTICK (test code=DEVI) 6.0 5.0-8.0 UA PROTEIN DIPSTICK (test code=PROU) 100 (2+) mg/dL NEGATIVE UA UROBILINIOGEN DIPSTICK (test code=URO) Normal mg/dL NEGATIVE UA NITRITE DIPSTICK (test code=BENITA) NEGATIVE NEGATIVE UA LEUKOCYTE ESTERASE W REFLEX (test code=LEUUR) 500 Grace/uL (2+) Grace/uL NEGATIVE UA WBC (test code=WBCU) per HPF 0-5 UA RBC (test code=RBCU) per HPF 0-5 UA EPITHELIAL CELLS (test code=EPIU) per HPF Few UA BACTERIA (test code=BACU) per HPF NONE URINALYSIS [id number] 23:01:00* Test Item Value Reference Range Comments UA COLOR (test code=COLU) YELLOW YELLOW UA APPEARANCE (test code=APPU) Cloudy CLEAR UA GLUCOSE DIPSTICK (test code=DGLUU) NEGATIVE mg/dL NEGATIVE UA BILIRUBIN DIPSTICK (test code=BILU) NEGATIVE mg/dL NEGATIVE UA KETONE DIPSTICK (test code=KETU) NEGATIVE mg/dL NEGATIVE UA SPECIFIC GRAVITY (test code=SGU) 1.011 1.001-1.035 UA BLOOD DIPSTICK (test code=USMAN) 0.2 mg/dL (2+) mg/dL NEGATIVE UA PH DIPSTICK (test code=DEVI) 6.0 5.0-8.0 UA PROTEIN DIPSTICK (test code=PROU) 100 (2+) mg/dL NEGATIVE UA UROBILINIOGEN DIPSTICK (test code=URO) Normal mg/dL NEGATIVE UA NITRITE DIPSTICK (test code=BENITA) NEGATIVE NEGATIVE UA LEUKOCYTE ESTERASE W REFLEX (test code=LEUUR) 500 Grace/uL (2+) Grace/uL NEGATIVE UA WBC (test code=WBCU) per HPF 0-5 UA RBC (test code=RBCU) per HPF 0-5 UA EPITHELIAL CELLS (test code=EPIU) per HPF Few UA BACTERIA (test code=BACU) per HPF NONE PROCALCITONIN (PCT)2018-08-15 22:56:00* Test Item Value Reference Range Comments PROCALCITONIN (PCT) (test code=PROCAL) 0.14 ng/ml Concentration Interpretation (ng/mL) <0.51 Sepsis is not likely. Local bacterial infection is possible. (LOW RISK for progression to Sepsis) 0.51 - 2.00 Sepsis is possible, but other conditions are known to elevate PCT as well. (MODERATE RISK for progression to Sepsis) > 2.00 Sepsis is likely, unless other causes are known. (HIGH RISK for progression to Severe Sepsis or Septic Shock) 10.00 High likelihood of Severe Sepsis or Septic or higher Shock. *Increased PCT levels may not always be related to systemic bacterial infection.*Low PCT levels do not automatically exclude the presence of bacterial infection.*All results should be interpreted taking into account the patients history. [id number] 22:56:00* Test Item Value Reference Range Comments GLUBED (test code=GLUBED) 116 mg/dL 74-106 Performed by certified pig machine crane operator at [facility] LACTIC [id number] 22:35:00* Test Item Value Reference Range Comments LACTIC ACID (test code=LACT) 0.8 mmol/L 0.4-1.9 BASIC METABOLIC [id number] 22:33:00* Test Item Value Reference Range Comments SODIUM (test code=NA) 142 mmol/L 136-145 POTASSIUM (test code=K) 4.0 mmol/L 3.5-5.1 CHLORIDE (test code=CL) 110.0 mmol/L 98-107 CARBON DIOXIDE (test code=CO2) 27.0 mmol/L 21-32 ANION GAP (test code=GAP) 9.0 10-20 GLUCOSE (test code=GLU) 118 mg/dL 74-106 BLOOD UREA NITROGEN (test code=BUN) 28 mg/dL 7-18 GLOMERULAR FILTRATION RATE (test code=GFR) 53 mL/min >=60 Estimated GFR by using Modified MDRD formula.Chronic kidney disease is defined as either kidney damageor GFR <60 mL/min/1.73 m2 for >3 months. CREATININE (test code=CREAT) 1.30 mg/dL 0.7-1.3 BUN/CREATININE RATIO (test code=BUN/CREA) 21.5 10-20 CALCIUM (test code=CA) 8.0 mg/dL 8.5-10.1 [id number] 22:33:00* Test Item Value Reference Range Comments PHOSPHORUS (test code=PHOS) 3.0 mg/dL 2.5-4.9 [id number] 22:33:00* Test Item Value Reference Range Comments MAGNESIUM (test code=MAG) 1.8 mg/dL 1.8-2.4 CALCIUM [id number] 22:33:00* Test Item Value Reference Range Comments CALCIUM IONIZED (test code=GERARDO) 1.27 mmol/L 1.12-1.32 BASIC METABOLIC [id number] 22:29:00* Test Item Value Reference Range Comments SODIUM (test code=NA) 142 mmol/L 136-145 POTASSIUM (test code=K) 4.0 mmol/L 3.5-5.1 CHLORIDE (test code=CL) 110.0 mmol/L 98-107 CARBON DIOXIDE (test code=CO2) mmol/L 21-32 ANION GAP (test code=GAP) 10-20 GLUCOSE (test code=GLU) mg/dL 74-106 BLOOD UREA NITROGEN (test code=BUN) mg/dL 7-18 GLOMERULAR FILTRATION RATE (test code=GFR) mL/min >=60 CREATININE (test code=CREAT) mg/dL 0.7-1.3 BUN/CREATININE RATIO (test code=BUN/CREA) 10-20 CALCIUM (test code=CA) mg/dL 8.5-10.1 [id number] 22:29:00* Test Item Value Reference Range Comments PHOSPHORUS (test code=PHOS) mg/dL 2.5-4.9 [id number] 22:29:00* Test Item Value Reference Range Comments MAGNESIUM (test code=MAG) mg/dL 1.8-2.4 CALCIUM [id number] 22:29:00* Test Item Value Reference Range Comments CALCIUM IONIZED (test code=GERARDO) 1.27 mmol/L 1.12-1.32 BASIC METABOLIC [id number] 22:23:00* Test Item Value Reference Range Comments SODIUM (test code=NA) mmol/L 136-145 POTASSIUM (test code=K) mmol/L 3.5-5.1 CHLORIDE (test code=CL) mmol/L 98-107 CARBON DIOXIDE (test code=CO2) mmol/L 21-32 ANION GAP (test code=GAP) 10-20 GLUCOSE (test code=GLU) mg/dL 74-106 BLOOD UREA NITROGEN (test code=BUN) mg/dL 7-18 GLOMERULAR FILTRATION RATE (test code=GFR) mL/min >=60 CREATININE (test code=CREAT) mg/dL 0.7-1.3 BUN/CREATININE RATIO (test code=BUN/CREA) 10-20 CALCIUM (test code=CA) mg/dL 8.5-10.1 [id number] 22:23:00* Test Item Value Reference Range Comments PHOSPHORUS (test code=PHOS) mg/dL 2.5-4.9 [id number] 22:23:00* Test Item Value Reference Range Comments MAGNESIUM (test code=MAG) mg/dL 1.8-2.4 CALCIUM [id number] 22:23:00* Test Item Value Reference Range Comments CALCIUM IONIZED (test code=GERARDO) 1.27 mmol/L 1.12-1.32 CBC W/AUTO [id number] 22:19:00* Test Item Value Reference Range Comments WHITE BLOOD CELL (test code=WBC) 12.9 K/mm3 4.5-12.5 RED BLOOD CELL (test code=RBC) 2.60 mill/mm3 4.0-5.8 HEMOGLOBIN (test code=HGB) 7.2 gram/dL 13.0-17.5 HEMATOCRIT (test code=HCT) 23.1 % 42.0-52.0 MEAN CELL VOLUME (test code=MCV) 88.8 fL 80-98 MEAN CELL HGB (test code=MCH) 27.7 picogram 27.0-33.0 MEAN CELL HGB CONCETRATION (test code=MCHC) 31.2 gram/dL 33.0-36.0 RED CELL DISTRIBUTION WIDTH (test code=RDW) 16.8 % 11.6-16.2 RED CELL DISTRIBUTION WIDTH SD (test code=RDW-SD) 54.9 fL 37.0-51.0 PLATELET COUNT (test code=PLT) 273 K/mm3 150-450 MEAN PLATELET VOLUME (test code=MPV) 9.2 fL 6.7-11.0 NEUTROPHIL % (test code=NT%) 80.0 % 39.0-69.0 IMMATURE GRANULOCYTE % (test code=IG%) 0.4 % 0.0-5.0 LYMPHOCYTE % (test code=LY%) 10.7 % 25.0-55.0 MONOCYTE % (test code=MO%) 8.3 % 0.0-10.0 EOSINOPHIL % (test code=EO%) 0.3 % 0.0-5.0 BASOPHIL % (test code=BA%) 0.3 % 0.0-1.0 NUCLEATED RBC % (test code=NRBC%) 0.0 % 0-0 NEUTROPHIL # (test code=NT#) 10.29 K/mm3 1.8-7.7 IMMATURE GRANULOCYTE # (test code=IG#) 0.05 x10 3/uL 0-0.03 LYMPHOCYTE # (test code=LY#) 1.38 K/mm3 1.0-5.0 MONOCYTE # (test code=MO#) 1.07 K/mm3 0-0.8 EOSINOPHIL # (test code=EO#) 0.04 K/mm3 0.0-0.5 BASOPHIL # (test code=BA#) 0.04 K/mm3 0.0-0.2 NUCLEATED RBC # (test code=NRBC#) 0.00 K/mm3 0.0-0.1 MANUAL DIFF REQUIRED (test code=MDIFF) NO [id number] 16:12:00* Test Item Value Reference Range Comments GLUBED (test code=GLUBED) 137 mg/dL 74-106 Performed by certified pig machine crane operator at [facility] [id number] 14:51:00* Test Item Value Reference Range Comments GLUBED (test code=GLUBED) 104 mg/dL 74-106 Performed by certified pig machine crane operator at [facility] [id number] 14:12:00* Test Item Value Reference Range Comments TROPONIN-I (test code=TROPI) 0.019 ng/mL 0-0.045 [id number] 05:23:00* Test Item Value Reference Range Comments GLUBED (test code=GLUBED) 219 mg/dL 74-106 Performed by certified pig machine crane operator at [facility] LIPID PROFILE (CORONARY RISK)2018-08-15 04:52:00* Test Item Value Reference Range Comments TRIGLYCERIDES (test code=TRIG) 90 mg/dL 20-150 CHOLESTEROL (test code=CHOL) 101 mg/dL 0-200 CHOLESTEROL/HDL RATIO (test code=CHOLHDL) 2.0 RATIO 0-4.9 RISK ASSOCIATED WITH CHOL/HDL RATIOS: Risk Male Female1/2 AVERAGE 3.43 3.27AVERAGE 4.97 4.442X AVERAGE 9.55 7.053X AVERAGE 23.39 11.04 REFERENCE VALUE IS RELATED TO RISK LEVELS ASRECOMMENDED BY THE MARIELY. HEART, LUNG, AND BLOOD INST. HDL CHOLESTEROL (test code=HDL) 38 mg/dL 40-60 LIPOPROTEIN LDL (test code=LDL) 55 mg/dL 100-129 Reference Interval: mg/dL mmol/L Optimal <100 <2.6Near/above optimal 100-129 2.6- 3.3Borderline High 130-159 3.4-4.1High 160-189 4.1-4.9Very High >=190 >=4.9=========This LDL result is a direct measurement.========= [id number] 04:52:00* Test Item Value Reference Range Comments TROPONIN-I (test code=TROPI) <0.015 ng/mL 0-0.045 [id number] 04:47:00* Test Item Value Reference Range Comments GLYCOSYLATED HEMOGLOBIN (HA1C) (test code=GLYHGB) 8.9 % HbA1 4.8-6.0 ESTIMATED AVERAGE GLUCOSE (test code=EAG) 209 MG/DL DBBASI METABOLIC [id number] 20:59:00* Test Item Value Reference Range Comments SODIUM (test code=NA) 141 mmol/L 136-145 POTASSIUM (test code=K) 4.1 mmol/L 3.5-5.1 CHLORIDE (test code=CL) 107.0 mmol/L 98-107 CARBON DIOXIDE (test code=CO2) 25.0 mmol/L 21-32 ANION GAP (test code=GAP) 13.1 10-20 GLUCOSE (test code=GLU) 325 mg/dL 74-106 BLOOD UREA NITROGEN (test code=BUN) 32 mg/dL 7-18 GLOMERULAR FILTRATION RATE (test code=GFR) 53 mL/min >=60 Estimated GFR by using Modified MDRD formula.Chronic kidney disease is defined as either kidney damageor GFR <60 mL/min/1.73 m2 for >3 months. CREATININE (test code=CREAT) 1.30 mg/dL 0.7-1.3 BUN/CREATININE RATIO (test code=BUN/CREA) 24.6 10-20 CALCIUM (test code=CA) 8.7 mg/dL 8.5-10.1 [id number] 20:59:00* Test Item Value Reference Range Comments TROPONIN-I (test code=TROPI) <0.015 ng/mL 0-0.045 BASIC METABOLIC [id number] 20:49:00* Test Item Value Reference Range Comments SODIUM (test code=NA) 141 mmol/L 136-145 POTASSIUM (test code=K) 4.1 mmol/L 3.5-5.1 CHLORIDE (test code=CL) 107.0 mmol/L 98-107 CARBON DIOXIDE (test code=CO2) mmol/L 21-32 ANION GAP (test code=GAP) 10-20 GLUCOSE (test code=GLU) mg/dL 74-106 BLOOD UREA NITROGEN (test code=BUN) mg/dL 7-18 GLOMERULAR FILTRATION RATE (test code=GFR) mL/min >=60 CREATININE (test code=CREAT) mg/dL 0.7-1.3 BUN/CREATININE RATIO (test code=BUN/CREA) 10-20 CALCIUM (test code=CA) mg/dL 8.5-10.1 [id number] 20:49:00* Test Item Value Reference Range Comments TROPONIN-I (test code=TROPI) ng/mL 0-0.045 CBC W/O [id number] 20:37:00* Test Item Value Reference Range Comments WHITE BLOOD CELL (test code=WBC) 9.0 K/mm3 4.5-12.5 RED BLOOD CELL (test code=RBC) 3.15 mill/mm3 4.0-5.8 HEMOGLOBIN (test code=HGB) 8.6 gram/dL 13.0-17.5 HEMATOCRIT (test code=HCT) 28.4 % 42.0-52.0 MEAN CELL VOLUME (test code=MCV) 90.2 fL 80-98 MEAN CELL HGB (test code=MCH) 27.3 picogram 27.0-33.0 MEAN CELL HGB CONCETRATION (test code=MCHC) 30.3 gram/dL 33.0-36.0 RED CELL DISTRIBUTION WIDTH (test code=RDW) 16.6 % 11.6-16.2 PLATELET COUNT (test code=PLT) 306 K/mm3 150-450 MEAN PLATELET VOLUME (test code=MPV) 9.8 fL 6.7-11.0 TROPONIN I [id number] 20:36:00* Test Item Value Reference Range Comments TROPONIN I RAPID (test code=TROPIRAP) 0.01 ng/mL <0.08 Please Note New Reference Range 0.00-0.079 ng/mL - Negative>or=0.08 ng/mL - Positive The use of serial sampling and testing protocol is arecommended practice.An elevated troponin level alone is often not sufficient fordiagnosis of myocardial infarction. Troponin results obtained by different assays may vary.Evaluation of the extent of myocardial damage based onincrease of troponin would be valid only if similarmethodology is used. - XR CHEST 1 [id number] 19:53:00 FAX: Gil Watkins MD [phone] [place]: B St: REG Name: JUAN MARQUEZ [facility] : [birth year] Age/S: 78/M Reymundo Dumont Unit #: [id number] Loc: [place] [address] Phys: Gil Watkins MD Acct: [id number] Dis Date: Status: REG ER PHONE #: [phone] Exam Date: 08/14/2018 1950 FAX #: [phone] Reason: CHEST PAIN EXAMS: CPT CODE: [id number] XR CHEST 1 V [id number] REASON FOR EXAM: CHEST PAIN EXAM ORDER DATE: 08/14/2018 7:35 PM Ordering M.D.: Gil Watkins MD PROCEDURE: - XR CHEST 1 V COMPAR TOYA: 05/15/2018 FINDINGS: Portable AP frontal view of the chest o btained at 7:49 PM shows clear lungs without evidence of consolidation. Th ere is no evidence of effusion. The heart size is minimally enlarged. Pulm onary vasculatures are minimally congested. 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 CC: Gil Watkins MD Technologist: Mega Lord RT(R); GABRIEL SANCHEZ RT(R) Trnscrd Date/Time/By: 08/14/2018 (1952) : By: HannahVTL Orig Print D/T: S: 08/14/2018 (1956) PAGE 1 Signed Report URINALYSIS [id number] 16:32:00* Test Item Value Reference Range Comments UA COLOR (test code=COLU) STRAW YEL/STRAW UA APPEARANCE (test code=APPU) TURBID CLEAR UA GLUCOSE DIPSTICK (test code=DGLUU) NEGATIVE NEGATIVE UA BILIRUBIN DIPSTICK (test code=BILU) NEGATIVE NEGATIVE UA KETONE DIPSTICK (test code=KETU) NEGATIVE NEGATIVE UA SPECIFIC GRAVITY (test code=SGU) 1.015 1.005-1.030 UA BLOOD DIPSTICK (test code=USMAN) 3+ NEGATIVE UA PH DIPSTICK (test code=DEVI) 6.0 5.0-7.0 UA PROTEIN DIPSTICK (test code=PROU) 4+ NEGATIVE UA UROBILINIOGEN DIPSTICK (test code=URO) 0.2 mg/dL 0.2-1.0 UA NITRITE DIPSTICK (test code=BENITA) NEGATIVE NEGATIVE UA LEUKOCYTE ESTERASE DIPSTICK (test code=LEUU) 3+ NEGATIVE UA WBC (test code=WBCU) >50 WBC/HPF 0-3 UA RBC (test code=RBCU) >50 RBC/HPF 0-3 UA BACTERIA (test code=BACU) 4+ /HPF NONE SEEN UA SQUAMOUS CELLS (test code=SQU) NONE SEEN /HPF NONE SEEN UA MUCUS (test code=MUCU) TRACE /LPF NONE SEEN URINALYSIS [id number] 16:24:00* Test Item Value Reference Range Comments UA COLOR (test code=COLU) STRAW YEL/STRAW UA APPEARANCE (test code=APPU) TURBID CLEAR UA GLUCOSE DIPSTICK (test code=DGLUU) NEGATIVE NEGATIVE UA BILIRUBIN DIPSTICK (test code=BILU) NEGATIVE NEGATIVE UA KETONE DIPSTICK (test code=KETU) NEGATIVE NEGATIVE UA SPECIFIC GRAVITY (test code=SGU) 1.015 1.005-1.030 UA BLOOD DIPSTICK (test code=USMAN) 3+ NEGATIVE UA PH DIPSTICK (test code=DEVI) 6.0 5.0-7.0 UA PROTEIN DIPSTICK (test code=PROU) 4+ NEGATIVE UA UROBILINIOGEN DIPSTICK (test code=URO) 0.2 mg/dL 0.2-1.0 UA NITRITE DIPSTICK (test code=BENITA) NEGATIVE NEGATIVE UA LEUKOCYTE ESTERASE DIPSTICK (test code=LEUU) 3+ NEGATIVE UA WBC (test code=WBCU) WBC/HPF 0-3 UA RBC (test code=RBCU) RBC/HPF 0-3 COMPREHENSIVE METABOLIC [id number] 16:24:00* Test Item Value Reference Range Comments SODIUM (test code=NA) 136 mEq/L 134-147 POTASSIUM (test code=K) 4.7 mEq/L 3.4-5.0 CHLORIDE (test code=CL) 101 mEq/L 100-108 CARBON DIOXIDE (test code=CO2) 28 mEq/L 21-33 ANION GAP (test code=GAP) 12 0-20 GLUCOSE (test code=GLU) 203 mg/dL 70-110 BLOOD UREA NITROGEN (test code=BUN) 21 mg/dL 7-18 GLOMERULAR FILTRATION RATE (test code=GFR) 48.8 70-80 Units of measure=ml/min/1.73 m2 CREATININE (test code=CREAT) 1.4 mg/dL 0.6-1.3 TOTAL PROTEIN (test code=PROT) 6.6 g/dL 6.4-8.2 ALBUMIN (test code=ALB) 3.20 g/dL 3.4-5.0 CALCIUM (test code=CA) 8.9 mg/dL 8.0-10.5 BILIRUBIN TOTAL (test code=BILT) 0.30 mg/dL 0.0-1.0 SGOT/AST (test code=AST) 8 IUnit/L 15-37 SGPT/ALT (test code=ALT) 12 IUnit/L 15-65 ALKALINE PHOSPHATASE TOTAL (test code=ALKP) 102 IUnit/L 20-125 CBC W/AUTO [id number] 16:02:00* Test Item Value Reference Range Comments WHITE BLOOD CELL (test code=WBC) 15.61 x10 3/uL 4.5-11.0 RED BLOOD CELL (test code=RBC) 3.33 x10 6/uL 4.00-5.60 HEMOGLOBIN (test code=HGB) 9.7 g/dL 12.5-16.9 HEMATOCRIT (test code=HCT) 30.8 % 37.5-50.7 MEAN CELL VOLUME (test code=MCV) 92.5 fL 81.0-99.0 MEAN CELL HGB (test code=MCH) 29.1 pg 27.0-33.0 MEAN CELL HGB CONCETRATION (test code=MCHC) 31.5 g/dL 33.0-37.0 RED CELL DISTRIBUTION WIDTH CV (test code=RDW) 13.6 % 11.5-14.5 RED CELL DISTRIBUTION WIDTH SD (test code=RDW-SD) 46.1 fL 37.0-54.0 PLATELET COUNT (test code=PLT) 475 x10 3/uL 150-400 MEAN PLATELET VOLUME (test code=MPV) 9.3 fL 7.0-9.0 NEUTROPHIL % (test code=NT%) 79.4 % 56.0-77.0 IMMATURE GRANULOCYTE % (test code=IG%) 0.4 % 0.0-2.0 LYMPHOCYTE % (test code=LY%) 10.6 % 14.0-32.0 MONOCYTE % (test code=MO%) 8.2 % 4.8-9.0 EOSINOPHIL % (test code=EO%) 0.9 % 0.3-3.7 BASOPHIL % (test code=BA%) 0.5 % 0.0-2.0 NUCLEATED RBC % (test code=NRBC%) 0.0 % 0-0 NEUTROPHIL # (test code=NT#) 12.40 x10 3/uL 2.0-7.6 IMMATURE GRANULOCYTE # (test code=IG#) 0.06 x10 3/uL 0.00-0.03 LYMPHOCYTE # (test code=LY#) 1.65 x10 3/uL 1.0-3.8 MONOCYTE # (test code=MO#) 1.28 x10 3/uL 0.1-0.8 EOSINOPHIL # (test code=EO#) 0.14 x10 3/uL 0.0-0.2 BASOPHIL # (test code=BA#) 0.08 x10 3/uL 0.0-0.2 NUCLEATED RBC # (test code=NRBC#) 0.00 x10 3/uL 0.0-0.1 MANUAL DIFF REQUIRED (test code=MDIFF) NO [id number] 08:12:00* Test Item Value Reference Range Comments GLUBED (test code=GLUBED) 126 MG/DL 70-110 Performed by certified pig machine crane operator at [facility] [id number] 20:55:00* Test Item Value Reference Range Comments GLUBED (test code=GLUBED) 144 MG/DL 70-110 Performed by certified pig machine crane operator at [facility] [id number] 18:43:00* Test Item Value Reference Range Comments GLUBED (test code=GLUBED) 87 MG/DL 70-110 Performed by certified pig machine crane operator at [facility] [id number] 12:05:00* Test Item Value Reference Range Comments GLUBED (test code=GLUBED) 207 MG/DL 70-110 Performed by certified pig machine crane operator at [facility] [id number] 09:20:00* Test Item Value Reference Range Comments GLUBED (test code=GLUBED) 174 MG/DL 70-110 Performed by certified pig machine crane operator at [facility] [id number] 20:06:00* Test Item Value Reference Range Comments GLUBED (test code=GLUBED) 126 MG/DL 70-110 Performed by certified pig machine crane operator at [facility] [id number] 16:41:00* Test Item Value Reference Range Comments GLUBED (test code=GLUBED) 74 MG/DL 70-110 Performed by certified pig machine crane operator at [facility] [id number] 12:14:00* Test Item Value Reference Range Comments GLUBED (test code=GLUBED) 225 MG/DL 70-110 Performed by certified pig machine crane operator at [facility] - CT ABD PELVIS W WO [id number] 10:47:00 Name: JUAN KASPER [facility] : 1940 Age/S: 78 / M [address] [place] [address] Blvd Unit #: [id number] Loc: [place] [address] Phys: Benito Smalls MD Acct: [id number] Dis Date: Status: ADM IN PHONE #: [phone] Exam Date: 05/16/2018 09 FAX #: [phone] Reason: gross hematuria EXAMS: CPT CODE: [id number] CT ABD PELVIS W WO CONT [id number] PROCEDURE: CT ABDOMEN AND PELVIS WITH AND WITHOUT CONTRAST INDICATION: gross hematuria COMPARISON: None. TECHNIQUE: Pre-and postcontrast helical imaging was performed diaphragm through the symphysis with multiplanar reconstructions. Kidneys imaged during nephrographic and excretory phases. IV CONTRAST: 100 mL Isovue 300 GI CONTRAST: None. CT imaging performed at this location utilizes radiation dose optimization techniques which include one or more of the following: -Automated exposure control -Adjustment of the mA and/or kV according to patient size -Use of it erative reconstruction technique CT Radiation Dose DLP 2301.90 mGy-cm FINDINGS: LOWER CHEST: The lung bases are clear. Coronary ghislaine rial calcifications. KIDNEYS: Moderate bilateral pelvocaliec tasis with preservation of renal sinus fat. Bilateral ureteral dilatation to the level of urinary bladder. No ureteral calculi. Diminutive calcif ications in the renal sinuses bilateral likely combination of nonobstructi ng calculi and vascular calcifications. Incomplete opacification of the collecting systems on 5 minute delay. Excretion otherwise appears sy mmetric. Bilateral symmetric perinephric stranding. Right renal cortical cysts, largest exophytic lateral aspect mid kidney measuring 10.8 x 7.6 x 10.4 cm. Thin rim calcifications. No discrete nodular or enhancing comp onents. Smaller cortical cyst lower pole right kidney 2 cm diameter. Add itional subcentimeter low-attenuation cortical lesions are too small to ch aracterize, compatible with benign findings. No suspicious renal masses. The renal veins are patent. LIVER: 8 x 5 mm low-attenuation lesion segment 7 right lobe of liver is too small to accurately characterize. Indistinct margins with subjective decreased size of the lesion on 5 minut e delayed, findings suggestive of though not diagnostic of cavernous heman gioma. Liver is otherwise normal. The portal venous system is patent. GALLBLADDER: Normal. SPLEEN: Normal. PAGE 1 Signed Report (CONTINUED) Name: JUAN KASPER [facility] : 1940 Age/S: 78 / M [address] [place] [address] Blvd Unit #: [id number] Loc: [place] [address] Phys: Benito Smalls MD Acct: [id number] Dis Date: Status: ADM IN PHONE #: [phone] Exam Date: 05/16/2018 09 FAX #: [phone] Reason: g ross hematuria EXAMS: CPT CODE: [id number] CT ABD PELVIS W WO CONT [id number] <Continued> PANCREAS: Mild fatty involutional change. No focal abnormality. ADRENALS: Nodular enlargement of the left adrenal up to 15 mm thickness. Attenuation slightly less than 0 compatible with intracellular lipid. Right adrenal is unremarkable. BOWEL: The unopacified stomach and small bowel are unremarkable. Scattered colonic diverticula. No inflammatory changes. PERITONEUM: Trace free fluid. No free air. No focal fluid collection. RETROPERITONEUM: No adenopathy. Extensive calcified plaque abdominal aorta and branch vessels. Negative for aneurysm. PELVIS: The prostate is enlarged and indents the bladder base, estimated to measure 6.6 x 6.3 x 5.3 cm. The Cohn catheter balloon is inflated within the central aspect of the prostate. The urinary bladder is normally distended. Circumferential bladder wall thickening and slight trabeculation. No gross mass. Small volume of gas in the nondependent bladder lumen limited to catheter placement. No pelvic h ematoma. No adenopathy. MUSCULOSKELETAL: Chronic healed bilateral rib fractures. No acute fracture. Subcentimeter sclerotic focus left la teral 7th rib without lytic or expansile component. Multilevel degenerati ve changes of the spine. Multilevel Schmorl's nodes. No acute fracture. Unilateral right L5 pars interarticularis defect. Advanced facet arthrop athy. Grade 1 anterolisthesis L5 relative to S1. Degenerative changes bilateral hips. IMPRESSION: 1. Cohn catheter ballo on positioned within the prostatic urethra. The urinary bladder is mode rately distended. Bladder wall thickening and trabeculation compatible with chronic bladder outlet obstruction. Enlarged prostate. 2. Moderate bilateral hydronephrosis. 3. Nonobstructing nephrolithiasis a nd renal vascular calcifications. 4. Right renal cortical cysts largest 10.8 cm with thin rim calcifications, Bosniak 2. 5. Subcentim eter right lobe liver lesion, too small to characterize, with cavernous hemangioma favored. In the absence of risk factors for malignancy, no f urther workup is required. If there are risk factors PAGE 2 Signed Report (CONTINUED) Name: JUAN KASPER [facility] : 1940 Age/S: 78 / M [address] [place] [address] Blvd Unit #: [id number] Loc: [place] [address] Phys: Benito Smalls MD Acct: [id number] Dis Date: Status: ADM IN PHONE #: [phone] Exam Date: 05/16/2018934 FAX #: [phone] Reason: gross deandra turia EXAMS: CPT CODE: [id number] CT ABD PELVIS W WO CONT 06000 <Continued> for malignancy, follow-up imaging in 3-6 months is suggested. 6. Atherosclerosis. Coronary arterial calcifications. 7. Left adrenal adenomas/hyperplasia. 8. Chronic skeletal changes as noted. Small sclerotic lesion left 7th rib compatible with benign bone island. Blastic skeletal lesion included in the differential. A verbal report was called to 6 WChristine hammer on 05/16/2018 10:40 AM. SL: [id number] at 1047 Reported and signed by: Kishan Mack M.D. CC: Petar Lee MD; Benito Smalls MD Technologist:Liane Glass, RT(R)(CT) CTDI: DLP: Trnscb Date/Time: 05/16/2018 (3698) Jessica Orig Print D/T: S: 05/16/2018 (1449) CTDI: DLP: PAGE 3 Signed Report CBC W/AUTO [id number] 08:47:00* Test Item Value Reference Range Comments WHITE BLOOD CELL (test code=WBC) 14.02 x10 3/uL 4.5-11.0 RED BLOOD CELL (test code=RBC) 3.52 x10 6/uL 4.00-5.60 HEMOGLOBIN (test code=HGB) 10.3 g/dL 12.5-16.9 HEMATOCRIT (test code=HCT) 32.4 % 37.5-50.7 MEAN CELL VOLUME (test code=MCV) 92.0 fL 81.0-99.0 MEAN CELL HGB (test code=MCH) 29.3 pg 27.0-33.0 MEAN CELL HGB CONCETRATION (test code=MCHC) 31.8 g/dL 33.0-37.0 RED CELL DISTRIBUTION WIDTH CV (test code=RDW) 13.2 % 11.5-14.5 RED CELL DISTRIBUTION WIDTH SD (test code=RDW-SD) 44.9 fL 37.0-54.0 PLATELET COUNT (test code=PLT) 446 x10 3/uL 150-400 MEAN PLATELET VOLUME (test code=MPV) 9.4 fL 7.0-9.0 NEUTROPHIL % (test code=NT%) 69.0 % 56.0-77.0 IMMATURE GRANULOCYTE % (test code=IG%) 0.5 % 0.0-2.0 LYMPHOCYTE % (test code=LY%) 19.0 % 14.0-32.0 MONOCYTE % (test code=MO%) 7.6 % 4.8-9.0 EOSINOPHIL % (test code=EO%) 3.4 % 0.3-3.7 BASOPHIL % (test code=BA%) 0.5 % 0.0-2.0 NUCLEATED RBC % (test code=NRBC%) 0.0 % 0-0 NEUTROPHIL # (test code=NT#) 9.69 x10 3/uL 2.0-7.6 IMMATURE GRANULOCYTE # (test code=IG#) 0.07 x10 3/uL 0.00-0.03 LYMPHOCYTE # (test code=LY#) 2.66 x10 3/uL 1.0-3.8 MONOCYTE # (test code=MO#) 1.06 x10 3/uL 0.1-0.8 EOSINOPHIL # (test code=EO#) 0.47 x10 3/uL 0.0-0.2 BASOPHIL # (test code=BA#) 0.07 x10 3/uL 0.0-0.2 NUCLEATED RBC # (test code=NRBC#) 0.00 x10 3/uL 0.0-0.1 MANUAL DIFF REQUIRED (test code=MDIFF) NO [id number] 08:18:00* Test Item Value Reference Range Comments GLUBED (test code=GLUBED) 234 MG/DL 70-110 Performed by certified pig machine crane operator at [facility] COMPREHENSIVE METABOLIC [id number] 07:51:00* Test Item Value Reference Range Comments SODIUM (test code=NA) 141 mEq/L 134-147 POTASSIUM (test code=K) 3.9 mEq/L 3.4-5.0 CHLORIDE (test code=CL) 108 mEq/L 100-108 CARBON DIOXIDE (test code=CO2) 25 mEq/L 21-33 ANION GAP (test code=GAP) 12 0-20 GLUCOSE (test code=GLU) 128 mg/dL 70-110 BLOOD UREA NITROGEN (test code=BUN) 17 mg/dL 7-18 GLOMERULAR FILTRATION RATE (test code=GFR) 58.3 70-80 Units of measure=ml/min/1.73 m2 CREATININE (test code=CREAT) 1.2 mg/dL 0.6-1.3 TOTAL PROTEIN (test code=PROT) 6.0 g/dL 6.4-8.2 ALBUMIN (test code=ALB) 2.70 g/dL 3.4-5.0 CALCIUM (test code=CA) 8.4 mg/dL 8.0-10.5 BILIRUBIN TOTAL (test code=BILT) 0.20 mg/dL 0.0-1.0 SGOT/AST (test code=AST) 8 IUnit/L 15-37 SGPT/ALT (test code=ALT) 10 IUnit/L 15-65 ALKALINE PHOSPHATASE TOTAL (test code=ALKP) 80 IUnit/L 20-125 [id number] 07:51:00* Test Item Value Reference Range Comments MAGNESIUM (test code=MAG) 2.00 mg/dL 1.8-2.4 [id number] 20:23:00* Test Item Value Reference Range Comments GLUBED (test code=GLUBED) 178 MG/DL 70-110 Performed by certified pig machine crane operator at [facility] [id number] 18:07:00* Test Item Value Reference Range Comments GLUBED (test code=GLUBED) 136 MG/DL 70-110 Performed by certified pig machine crane operator at [facility] - XR CHEST 2 [id number] 14:22:00 FAX: Petar Arizmendi [phone] [place]: St: ADM FAX: Alisha Tafoya NP [phone] Name: JUAN KASPER [facility] : 1940 Age/S: 78/M [address] [place] [address] Bl Unit #: [id number] Loc: G.658 [place] [address] Phys: Alisha Tafoya NP Acct: [id number] Dis Date: Status: ADM IN PHONE #: [phone] Exam Date: 05/15/2018 1208 FAX #: [phone] Reason: leukocytosis r/o pneumonia EXAMS: CPT CODE: [id number] XR CHEST 2 V 91074 2 view chest x-ray performed May 15, 2018 1157 hours. COMPARISON: May 11, 2018. CLINICAL HISTORY: Leukocytosis. DISCUSSION: 2 views/ films of the chest are submitted. Lungs are clear bilaterally. Cardiac silhouette is normal in size. Stable atherosclerotic vascular calcifications are seen. Degenerative changes are seen in the osseous structures. IMPRESSION: No a cute cardiopulmonary findings at 3417 Reported and signed by: Brittani kim M.D. CC: Petar Lee MD; Alisha flaherty NP Technologist: RT Eri(Amado) Trnscrd Date/Time/By: 05/15/2018 (9734) : By: KristenG Orig Print D/T: S: 05/15/2018 (2537) PAGE 1 Signed Report [id number] 12:55:00* Test Item Value Reference Range Comments GLUBED (test code=GLUBED) 192 MG/DL 70-110 Performed by certified pig machine crane operator at [facility] CBC W/AUTO [id number] 08:50:00* Test Item Value Reference Range Comments WHITE BLOOD CELL (test code=WBC) 12.81 x10 3/uL 4.5-11.0 RED BLOOD CELL (test code=RBC) 3.40 x10 6/uL 4.00-5.60 HEMOGLOBIN (test code=HGB) 10.2 g/dL 12.5-16.9 HEMATOCRIT (test code=HCT) 32.1 % 37.5-50.7 MEAN CELL VOLUME (test code=MCV) 94.4 fL 81.0-99.0 MEAN CELL HGB (test code=MCH) 30.0 pg 27.0-33.0 MEAN CELL HGB CONCETRATION (test code=MCHC) 31.8 g/dL 33.0-37.0 RED CELL DISTRIBUTION WIDTH CV (test code=RDW) 13.2 % 11.5-14.5 RED CELL DISTRIBUTION WIDTH SD (test code=RDW-SD) 45.3 fL 37.0-54.0 PLATELET COUNT (test code=PLT) 413 x10 3/uL 150-400 MEAN PLATELET VOLUME (test code=MPV) 9.4 fL 7.0-9.0 NEUTROPHIL % (test code=NT%) 67.2 % 56.0-77.0 IMMATURE GRANULOCYTE % (test code=IG%) 0.5 % 0.0-2.0 LYMPHOCYTE % (test code=LY%) 19.7 % 14.0-32.0 MONOCYTE % (test code=MO%) 9.1 % 4.8-9.0 EOSINOPHIL % (test code=EO%) 3.0 % 0.3-3.7 BASOPHIL % (test code=BA%) 0.5 % 0.0-2.0 NUCLEATED RBC % (test code=NRBC%) 0.0 % 0-0 NEUTROPHIL # (test code=NT#) 8.61 x10 3/uL 2.0-7.6 IMMATURE GRANULOCYTE # (test code=IG#) 0.07 x10 3/uL 0.00-0.03 LYMPHOCYTE # (test code=LY#) 2.52 x10 3/uL 1.0-3.8 MONOCYTE # (test code=MO#) 1.17 x10 3/uL 0.1-0.8 EOSINOPHIL # (test code=EO#) 0.38 x10 3/uL 0.0-0.2 BASOPHIL # (test code=BA#) 0.06 x10 3/uL 0.0-0.2 NUCLEATED RBC # (test code=NRBC#) 0.00 x10 3/uL 0.0-0.1 MANUAL DIFF REQUIRED (test code=MDIFF) NO [id number] 08:21:00* Test Item Value Reference Range Comments GLUBED (test code=GLUBED) 128 MG/DL 70-110 Performed by certified pig machine crane operator at [facility] COMPREHENSIVE METABOLIC [id number] 07:53:00* Test Item Value Reference Range Comments SODIUM (test code=NA) 142 mEq/L 134-147 POTASSIUM (test code=K) 4.2 mEq/L 3.4-5.0 CHLORIDE (test code=CL) 109 mEq/L 100-108 CARBON DIOXIDE (test code=CO2) 26 mEq/L 21-33 ANION GAP (test code=GAP) 11 0-20 GLUCOSE (test code=GLU) 106 mg/dL 70-110 BLOOD UREA NITROGEN (test code=BUN) 14 mg/dL 7-18 GLOMERULAR FILTRATION RATE (test code=GFR) 58.3 70-80 Units of measure=ml/min/1.73 m2 CREATININE (test code=CREAT) 1.2 mg/dL 0.6-1.3 TOTAL PROTEIN (test code=PROT) 6.1 g/dL 6.4-8.2 ALBUMIN (test code=ALB) 2.60 g/dL 3.4-5.0 CALCIUM (test code=CA) 8.6 mg/dL 8.0-10.5 BILIRUBIN TOTAL (test code=BILT) 0.20 mg/dL 0.0-1.0 SGOT/AST (test code=AST) 8 IUnit/L 15-37 SGPT/ALT (test code=ALT) 12 IUnit/L 15-65 ALKALINE PHOSPHATASE TOTAL (test code=ALKP) 83 IUnit/L 20-125 [id number] 20:35:00* Test Item Value Reference Range Comments GLUBED (test code=GLUBED) 221 MG/DL 70-110 Performed by certified pig machine crane operator at [facility] [id number] 17:51:00* Test Item Value Reference Range Comments GLUBED (test code=GLUBED) 175 MG/DL 70-110 Performed by certified pig machine crane operator at [facility] [id number] 12:18:00* Test Item Value Reference Range Comments GLUBED (test code=GLUBED) 182 MG/DL 70-110 Performed by certified pig machine crane operator at [facility] [id number] 08:22:00* Test Item Value Reference Range Comments GLUBED (test code=GLUBED) 142 MG/DL 70-110 Performed by certified pig machine crane operator at [facility] URINALYSIS [id number] 02:43:00* Test Item Value Reference Range Comments UA COLOR (test code=COLU) STRAW YEL/STRAW UA APPEARANCE (test code=APPU) CLEAR CLEAR UA GLUCOSE DIPSTICK (test code=DGLUU) NEGATIVE NEGATIVE UA BILIRUBIN DIPSTICK (test code=BILU) NEGATIVE NEGATIVE UA KETONE DIPSTICK (test code=KETU) NEGATIVE NEGATIVE UA SPECIFIC GRAVITY (test code=SGU) 1.005 1.005-1.030 UA BLOOD DIPSTICK (test code=USMAN) 3+ NEGATIVE UA PH DIPSTICK (test code=DEVI) 7.0 5.0-7.0 UA PROTEIN DIPSTICK (test code=PROU) 1+ NEGATIVE UA UROBILINIOGEN DIPSTICK (test code=URO) 0.2 mg/dL 0.2-1.0 UA NITRITE DIPSTICK (test code=BENITA) NEGATIVE NEGATIVE UA LEUKOCYTE ESTERASE DIPSTICK (test code=LEUU) NEGATIVE NEGATIVE UA WBC (test code=WBCU) 4-9 WBC/HPF 0-3 UA RBC (test code=RBCU) >50 RBC/HPF 0-3 UA BACTERIA (test code=BACU) TRACE /HPF NONE SEEN UA SQUAMOUS CELLS (test code=SQU) NONE SEEN /HPF NONE SEEN UA MUCUS (test code=MUCU) TRACE /LPF NONE SEEN [id number] 20:20:00* Test Item Value Reference Range Comments GLUBED (test code=GLUBED) 176 MG/DL 70-110 Performed by certified pig machine crane operator at [facility] [id number] 17:26:00* Test Item Value Reference Range Comments GLUBED (test code=GLUBED) 114 MG/DL 70-110 Performed by certified pig machine crane operator at [facility] [id number] 13:41:00* Test Item Value Reference Range Comments GLUBED (test code=GLUBED) 190 MG/DL 70-110 Performed by certified pig machine crane operator at [facility] - DUP VEIN [id number] 13:20:00 Name: JUAN KASPER [facility] : 1940 Age/S: 78 / M [address] [place] [address] Unit #: [id number] Loc: [place] [address] Phys: Mercedes Hair MD Acct: [id number] Dis Date: Status: ADM IN PHONE #: [phone] Exam Date: 05/13/2018 1317 FAX #: [phone] Reason: pfo+ve, possible dvt with cardioembolic source EXAMS: CPT CODE: [id number] DUP VEIN YEVGENIY 67781 EXAM: US BILATERAL LOWER EXTREMITY VENOUS DOPPLER : 1940; Age: 78 years y/o Male INDICATION: pfo+ve, possible dvt with cardioembolic source for stroke COMPARISON: None. TECHNIQUE: Multiplanar grayscale, color Doppler and spectral Doppler ultrasound of the bilateral lower extremity veins. FINDINGS: Right lower extremity: The common femoral vein, femoral vein, popliteal vein and visualized posterior tibial/calf veins are patent. There is no echogenic debris to suggest deep venous thrombosis. Left lower extremity: The common femoral vein, superficial femoral vein, popliteal vein and visualized posterior tibial/calf veins are patent. There is no echogenic debris to suggest deep venous thrombosis. IMPRESSION: No Deep Venous Thrombosis of the lower extremities. SL: [id number] at 1320 Reported and signed by: James Burden D.O. CC: Petar Lee MD; Mercedes Hair MD Technologist: [facility]ovanna Tirado [facility] Date/Time: 05/13/2018 () [id number] Orig Print D/T: S: 05/13/2018 (8697) Pr obe: PAGE 1 Signed Report CBC W/AUTO [id number] 09:54:00* Test Item Value Reference Range Comments WHITE BLOOD CELL (test code=WBC) 14.14 x10 3/uL 4.5-11.0 RED BLOOD CELL (test code=RBC) 3.56 x10 6/uL 4.00-5.60 HEMOGLOBIN (test code=HGB) 10.6 g/dL 12.5-16.9 HEMATOCRIT (test code=HCT) 32.2 % 37.5-50.7 MEAN CELL VOLUME (test code=MCV) 90.4 fL 81.0-99.0 MEAN CELL HGB (test code=MCH) 29.8 pg 27.0-33.0 MEAN CELL HGB CONCETRATION (test code=MCHC) 32.9 g/dL 33.0-37.0 RED CELL DISTRIBUTION WIDTH CV (test code=RDW) 13.1 % 11.5-14.5 RED CELL DISTRIBUTION WIDTH SD (test code=RDW-SD) 43.2 fL 37.0-54.0 PLATELET COUNT (test code=PLT) 425 x10 3/uL 150-400 MEAN PLATELET VOLUME (test code=MPV) 8.8 fL 7.0-9.0 NEUTROPHIL % (test code=NT%) 76.1 % 56.0-77.0 IMMATURE GRANULOCYTE % (test code=IG%) 0.5 % 0.0-2.0 LYMPHOCYTE % (test code=LY%) 13.5 % 14.0-32.0 MONOCYTE % (test code=MO%) 5.7 % 4.8-9.0 EOSINOPHIL % (test code=EO%) 3.7 % 0.3-3.7 BASOPHIL % (test code=BA%) 0.5 % 0.0-2.0 NUCLEATED RBC % (test code=NRBC%) 0.0 % 0-0 NEUTROPHIL # (test code=NT#) 10.76 x10 3/uL 2.0-7.6 IMMATURE GRANULOCYTE # (test code=IG#) 0.07 x10 3/uL 0.00-0.03 LYMPHOCYTE # (test code=LY#) 1.91 x10 3/uL 1.0-3.8 MONOCYTE # (test code=MO#) 0.80 x10 3/uL 0.1-0.8 EOSINOPHIL # (test code=EO#) 0.53 x10 3/uL 0.0-0.2 BASOPHIL # (test code=BA#) 0.07 x10 3/uL 0.0-0.2 NUCLEATED RBC # (test code=NRBC#) 0.00 x10 3/uL 0.0-0.1 MANUAL DIFF REQUIRED (test code=MDIFF) NO [id number] 08:07:00* Test Item Value Reference Range Comments GLUBED (test code=GLUBED) 123 MG/DL 70-110 Performed by certified pig machine crane operator at [facility] BASIC METABOLIC [id number] 07:44:00* Test Item Value Reference Range Comments SODIUM (test code=NA) 141 mEq/L 134-147 POTASSIUM (test code=K) 4.1 mEq/L 3.4-5.0 CHLORIDE (test code=CL) 110 mEq/L 100-108 CARBON DIOXIDE (test code=CO2) 22 mEq/L 21-33 ANION GAP (test code=GAP) 13 0-20 GLUCOSE (test code=GLU) 105 mg/dL 70-110 BLOOD UREA NITROGEN (test code=BUN) 11 mg/dL 7-18 GLOMERULAR FILTRATION RATE (test code=GFR) 71.9 70-80 Units of measure=ml/min/1.73 m2 CREATININE (test code=CREAT) 1.0 mg/dL 0.6-1.3 CALCIUM (test code=CA) 8.9 mg/dL 8.0-10.5 [id number] 20:59:00* Test Item Value Reference Range Comments GLUBED (test code=GLUBED) 110 MG/DL 70-110 Performed by certified pig machine crane operator at [facility] - CT HEAD/BRAIN W/O [id number] 18:18:00 Name: JUAN KASPER [facility] : 1940 Age/S: 78 / M [address] [place] [address] Blvd Unit #: [id number] Loc: [place] [address] Phys: Carina Coleman MD Acct: [id number] Dis Date: Status: ADM IN PHONE #: [phone] Exam Date: 05/12/2018 1726 FAX #: [phone] Reason: POST TPA EXAMS: CPT CODE: [id number] CT HEAD/BRAIN W/O CONT 50181 EXAM: CT BRAIN WITHOUT CONTRAST DATE: 05/12/2018 4:54 PM INDICATION: Altered mental status. COMPARISON: May 11, 2018. TECHNIQUE: Noncontrast axial imaging of the brain was acquired from the vertex to the skull base. Reformatted coronal and sagittal images were provided for review. CT radiation dose DLP: 990.60 mGy-cm FINDINGS: No acute intracranial hemorrhage, midline shift, or mass effect is identified. An age indeterminant infarct within the right frontal lobe is redemonstrated. Encephalomalacia is present within the left occipital lobe, with old lacunar infarcts present in the left basal ganglia, left centrum semiova le, and right cerebellar hemisphere. A background of moderate diffuse par enchymal volume loss and chronic microangiopathic changes is present. The orbits, paranasal sinuses, and mastoid air cells are unremarkable. The c alvarium and skull base are intact. Atherosclerotic calcification of the carotid siphons is present. IMPRESSION: No signif icant interval change, without acute intracranial hemorrhage or midline shift. SL: WR4-H at 7328 Reported and s igned by: Kenny Lala M.D. CC: Petar Lee MD; Carina naidu MD Technologist:Kristian Atkins, RT(R)(CT) CTDI: DLP: Trnscb Date/Time: 05/12/2018 (1817) [id number] Orig Print D/T: S: 05/12/2018 (1820) CTDI: DLP: PAGE 1 Signed Report [id number] 17:05:00* Test Item Value Reference Range Comments GLUBED (test code=GLUBED) 172 MG/DL 70-110 Performed by certified pig machine crane operator at [facility] [id number] 12:44:00* Test Item Value Reference Range Comments GLUBED (test code=GLUBED) 158 MG/DL 70-110 Performed by certified pig machine crane operator at [facility] HGBA1C%2018-05-12 10:21:00* Test Item Value Reference Range Comments HGBA1C% (test code=HGBA1C%) 8.8 %A1C 4.8-6.0 [id number] 08:57:00* Test Item Value Reference Range Comments GLUBED (test code=GLUBED) 124 MG/DL 70-110 Performed by certified pig machine crane operator at [facility] CBC W/AUTO [id number] 08:10:00* Test Item Value Reference Range Comments WHITE BLOOD CELL (test code=WBC) 11.29 x10 3/uL 4.5-11.0 RED BLOOD CELL (test code=RBC) 3.37 x10 6/uL 4.00-5.60 HEMOGLOBIN (test code=HGB) 9.7 g/dL 12.5-16.9 HEMATOCRIT (test code=HCT) 30.6 % 37.5-50.7 MEAN CELL VOLUME (test code=MCV) 90.8 fL 81.0-99.0 MEAN CELL HGB (test code=MCH) 28.8 pg 27.0-33.0 MEAN CELL HGB CONCETRATION (test code=MCHC) 31.7 g/dL 33.0-37.0 RED CELL DISTRIBUTION WIDTH CV (test code=RDW) 13.1 % 11.5-14.5 RED CELL DISTRIBUTION WIDTH SD (test code=RDW-SD) 43.6 fL 37.0-54.0 PLATELET COUNT (test code=PLT) 405 x10 3/uL 150-400 MEAN PLATELET VOLUME (test code=MPV) 9.3 fL 7.0-9.0 NEUTROPHIL % (test code=NT%) 66.4 % 56.0-77.0 IMMATURE GRANULOCYTE % (test code=IG%) 0.4 % 0.0-2.0 LYMPHOCYTE % (test code=LY%) 20.5 % 14.0-32.0 MONOCYTE % (test code=MO%) 8.0 % 4.8-9.0 EOSINOPHIL % (test code=EO%) 4.2 % 0.3-3.7 BASOPHIL % (test code=BA%) 0.5 % 0.0-2.0 NUCLEATED RBC % (test code=NRBC%) 0.0 % 0-0 NEUTROPHIL # (test code=NT#) 7.49 x10 3/uL 2.0-7.6 IMMATURE GRANULOCYTE # (test code=IG#) 0.05 x10 3/uL 0.00-0.03 LYMPHOCYTE # (test code=LY#) 2.32 x10 3/uL 1.0-3.8 MONOCYTE # (test code=MO#) 0.90 x10 3/uL 0.1-0.8 EOSINOPHIL # (test code=EO#) 0.47 x10 3/uL 0.0-0.2 BASOPHIL # (test code=BA#) 0.06 x10 3/uL 0.0-0.2 NUCLEATED RBC # (test code=NRBC#) 0.00 x10 3/uL 0.0-0.1 MANUAL DIFF REQUIRED (test code=MDIFF) NO COMPREHENSIVE METABOLIC [id number] 07:32:00* Test Item Value Reference Range Comments SODIUM (test code=NA) 142 mEq/L 134-147 POTASSIUM (test code=K) 3.7 mEq/L 3.4-5.0 CHLORIDE (test code=CL) 108 mEq/L 100-108 CARBON DIOXIDE (test code=CO2) 27 mEq/L 21-33 ANION GAP (test code=GAP) 11 0-20 GLUCOSE (test code=GLU) 111 mg/dL 70-110 BLOOD UREA NITROGEN (test code=BUN) 11 mg/dL 7-18 GLOMERULAR FILTRATION RATE (test code=GFR) 71.9 70-80 Units of measure=ml/min/1.73 m2 CREATININE (test code=CREAT) 1.0 mg/dL 0.6-1.3 TOTAL PROTEIN (test code=PROT) 6.0 g/dL 6.4-8.2 ALBUMIN (test code=ALB) 2.50 g/dL 3.4-5.0 CALCIUM (test code=CA) 8.6 mg/dL 8.0-10.5 BILIRUBIN TOTAL (test code=BILT) 0.20 mg/dL 0.0-1.0 SGOT/AST (test code=AST) 9 IUnit/L 15-37 SGPT/ALT (test code=ALT) 13 IUnit/L 15-65 ALKALINE PHOSPHATASE TOTAL (test code=ALKP) 83 IUnit/L 20-125 COMMENTS: Fasting in AMLIPID PROFILE (CORONARY RISK)2018-05-12 07:32:00* Test Item Value Reference Range Comments TRIGLYCERIDES (test code=TRIG) 135 mg/dL 40-150 CHOLESTEROL (test code=CHOL) 128 mg/dL <200 CHOLESTEROL/HDL RATIO (test code=CHOLHDL) 2.98 RATIO 3.43-4.97 RISK ASSOCIATED WITH CHOL/HDL RATIOS: RISK MALE FEMALE1/2 AVERAGE 3.43 3.27AVERAGE 4.97 4.442X AVERAGE 9.55 7.053X AVERAGE 23.39 11.04 NOTE THAT THE REFERENCE VALUE IS RELATEDTO RISK LEVELS RECOMMENDED BY THE NATL.HEART, LUNG, AND BLOOD INST. HDL CHOLESTEROL (test code=HDL) 43.0 mg/dL 32-72 LIPOPROTEIN LDL (test code=LDL) 68 mg/dL 0-100 <100 EKKKMKS132-563 NEAR OPTIMAL/ABOVE OOBVZQL121-257 TIFXZIEHCQ872-406 HIGH>HS=386 VERY HIGH*Guidelines provided by the National Cholesterol EducationProgram Adult Treatment Panel III COMMENTS: Fasting in [id number] 21:01:00* Test Item Value Reference Range Comments GLUBED (test code=GLUBED) 157 MG/DL 70-110 Performed by certified pig machine crane operator at [facility] - CT HEAD/BRAIN W/O [id number] 17:57:00 Name: JUAN KASPER [facility] : 1940 Age/S: 78 / M [address] [place] [address] Blvd Unit #: [id number] Loc: [place] [address] Phys: Carina Coleman MD Acct: [id number] Dis Date: Status: ADM IN PHONE #: [phone] Exam Date: 05/11/2018 1746 FAX #: [phone] Reason: AGITATION POST TPA EXAMS: CPT CODE: [id number] CT HEAD/BRAIN W/O CONT [id number] CT head without contrast 05/11/2018 1743 hours HISTORY: Agitation after TPA PROCEDURE: Multiple axial images from the skull base to the skull vertex were obtained without contrast. Coronal and sagittal reconstructed images were performed. DLP: 990.6 Comparison is made to 05/11/2018 1030 hours FINDINGS: There is a new infarct in the right precentral gyrus, best seen on sequence 2 image 20. There is moderate atrophy. There are mild white matter hypodensities. Old left occipital infarct is noted. No acute hemorrhage, midline shift, extra-axial fluid collection, or hydrocephalus is present. Distal internal carotid arterial calcifications are present. The visualized mastoid air cells are clear. There is no air-fluid level in the visualized paranasal sinuses. IMPRESSION: 1. No acute intracranial hemorrhage. 2. New small infarct in right precentral gyrus. 3. Old left occipital infarct. 4. Moderate atrophy and mild chronic microvascular ischemic changes. SL: [id number] at 1757 Reported and signed by: Jonatan Menezes M.D. CC: Petar Lee MD; Carina Costa MD Technologist:Kristian Atkins, RT(R)(CT) CTDI: DLP: Trnscb Date/Time: 05/11/2018 (1757) t.[email or web address] Orig Print D/T: S: 05/11/2018 (1800) CTD I: DLP: PAGE 1 Signed Report [id number] 16:21:00* Test Item Value Reference Range Comments GLUBED (test code=GLUBED) 101 MG/DL 70-110 Performed by certified pig machine crane operator at [facility] [id number] 12:53:00* Test Item Value Reference Range Comments TROPONIN-I (test code=TROPI) < 0.015 ng/mL 0.000-0.045 Negative: <=0.045 Positive: >=0.046 Correlation with serial results, other cardiac markers andclinical findings is necessary to determine the clinicalsignificance of this result. Results using different methodologies should not be comparedto one another as quantitative results may vary by method. [id number] 12:27:00* Test Item Value Reference Range Comments GLUBED (test code=GLUBED) 209 MG/DL 70-110 Performed by certified pig machine crane operator at [facility] - XR CHEST 1 [id number] 11:20:00 FAX: Dwayne Peters DO [place]: St: ADM Name: JUAN MARQUEZ [facility] : [birth year] Age/S: 78/M [address] [place] [address] Blvd Unit #: [id number] Loc: [place] [address] Phys: Dwayne Peters DO Acct: [id number] Dis Date: Status: ADM IN PHONE #: [phone] Exam Date: 05/11/20181121 FAX #: [phone] Reason: weak EXAMS: CPT CODE: [id number] XR CHEST 1 V 86736 CHEST, ONE VIEW: H ISTORY: Generalized weakness COMPARISON EXAM(S): June 2014 FINDINGS: This single portable view was obtained at 1112 hours on 05/11/2018 and shows upper normal cardiac silhouette with atherosclerotic changes noted in the aorta. No acute infiltrates, effusions or evidence of pneumothorax. Degenerative changes are noted at both shoulders. The skeletal structures are otherwise unremarkable. IMPRESSION: 1. No acute changes. 2. Mild cardiomegaly with atherosclerotic changes. 3. No significant change compared to 2014. SL:01 at 1120 Reported and signed by: Du Shabazz M.D. CC: Dwayne Peters DO Technologist: Yevgeniy Armando RT(R) Trnscrd Date/Time/By: 05/11/2018 (1120) : By: Krissy Orig Print D/T: S: 05/11/2018 (4850) PAGE 1 Signed Report - CT ANGIO [id number] 10:56:00 Name: JUAN KASPER [facility] : 1940 Age/S: 78 / M [address] [place] [address] Blvd Unit #: [id number] Loc: [place] [address] Phys: Khoa Peters DO Acct: [id number] Di s Date: Status: REG ER PHONE #: [phone] Exam Date: 05/11/2018 1033 FAX #: Reason: LEFT FACIAL DROOP, SLURRED SPEECH EXAMS: CPT CODE: [id number] CT ANGIO NECK 28382 CTA HEAD WITH CONTRAST CTA NECK WITH CONTRAST Clinical Indication: LEFT FACIAL DROOP, SLURRED SPEECH Comparison: None TECHNIQUE: Sequential trans- axial images are obtained from the skull vertex to the thoracic inlet with a multi-detector helical CT after intravenous contrast administration. C oronal and sagittal MIP reconstructions are obtained. IV Co ntrast: [address] Radiation Dose DLP 1159.8 mGy-cm. ICA stenosis indirectly reference the distal internal carotid diameter as the denominator for stenosis measurement, utilizing consensus panel carie nicole for PQRS code. (NASCET) FINDINGS: CTA NISQUALLY OF CORONEL: Distal right vertebral artery is dominant. There are mild bernadine cifications in the distal right vertebral artery. The left vertebral ghislaine ry is patent. There is a 50% narrowing within the midportion of the basil ar artery. Bilateral posterior cerebral arteries have normal caliber. Th ere are mild calcifications in the cavernous segments of both internal car otid arteries with narrowing of up to 20% on the right and 30% on the left . The bilateral middle cerebral and anterior cerebral arteries have mouna l caliber. CONTRAST ENHANCED BRAIN IMAGES: The contrast-enhanced i mages of the brain demonstrate no pathologic enhancement. CT A NECK: There is dependent atelectasis in the right lung apex. There are moderate degenerative changes at C5-6 and C6-7 with moderate bilateral lonnie ral foraminal narrowing and moderate spinal canal stenosis at both levels. No acute or aggressive bony abnormality is present. Straightening of the cervical spine may be related to patient positioning or muscle spasm. No lymphadenopathy, mass lesion, or fluid collection is present. Mild aortic arch calcifications are present. The brachiocephalic artery and bilateral subclavian arteries have normal caliber. There are mild calcifications in both common carotid arteries. There are mild calcifications within both carotid bulbs. There is mild soft plaque within the both carotid bulbs. 50% narrowing within the left carotid bulb is noted. 20% narrowing within the right carotid bulb is noted. The right vertebral artery is PAGE 1 Signed Report (CONTINUED) Name: JUAN KASPER [facility] : [birth year] Age/S: 78 / M [address] [place] [address] Blvd Unit #: [id number] Loc: [place] [address] Phys: Dwayne Peters DO Acct: [id number] Dis Date: Status: REG ER PHONE #: [phone] Exam Date: 05/11/2018 1033 FAX #: [phone] Reason: LEFT FACIAL DROOP, SLURRED SPEECH EXAMS: CPT CODE: [id number] CT ANGIO NECK 98089 <Continued> dominant. Both vertebral arteries are patent with normal caliber. IMPRESSION: 1. No large vessel occlusion, aneurysm, or significant stenosis within [place] of [place]. 2. 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 3. 50% narrowing within left carotid bulb. 20% narrowing within right carotid bulb. 4. Moderate degenerative disc disease at C5-6 and C6-7. Findings were discussed with Dr. Lancaster by Dr. Menezes at 10:53 AM on 05/11/2018. SL: [id number] at 1056 Reported and signed by: Jonatan Menezes M.D. CC: Dwayne Peters DO Technologist:RT Dipesh(R)(CT) CTDI: DLP: Trnscb Date/Time: 05/11/2018 (0678) [email or web address] Orig Print D/T: S: 05/11/2018 (6337) CTDI: DLP: PAGE 2 Signed Report - CT ANGIO [id number] 10:56:00 Name: JUAN KASPER [facility] : 1940 Age/S: 78 / M [address] [place] [address] Blvd Unit #: [id number] Loc: [place] [address] Phys: Dwayne Peters DO Acct: [id number] Dis Date: Status: REG ER PHONE #: [phone] Exam Date: 05/11/2018 1033 FAX #: [phone] Reason: LEFT FACIAL DROOP, SLURRED SPEECH EXAMS: CPT CODE: [id number] CT ANGIO HEAD 41610 CTA HEAD WITH CONTRAST CTA NECK WITH CONTRAST Clinical Indication: LEFT FACIAL DROOP, SLURRED SPEECH Comparison: None TECHNIQUE: Sequential trans-axial images are obtained from the skull vertex to the thoracic inlet with a multi-detector helical CT after intravenous contrast administration. Coronal and sagittal MIP reconstructions are obtained. IV Contrast: [address] Radiation Dose DLP 1159.8 mGy-cm. ICA stenosis indirectly reference the distal internal carotid diameter as the denominator for stenosis measurement, utilizing consensus panel criteria for PQRS code. (NASCET) FINDINGS: CTA NISQUALLY OF CORONEL: Distal right vertebral artery is dominant. There are mild calcifications in the distal right vertebral artery. The left vertebral artery is patent. There is a 50% narrowing within the midportion of the basilar artery. Bilateral posterior cerebral arteries have normal caliber. There are mild calcifications in the cavernous segments of both internal carotid arteries with narrowing of up to 20% on the right and 30% on the left. The bilateral middle cerebral and anterior cerebral arteries have normal caliber. CONTRAST ENHANCED BRAIN IMAGES: The contrast-enhanced i mages of the brain demonstrate no pathologic enhancement. CT A NECK: There is dependent atelectasis in the right lung apex. There are moderate degenerative changes at C5-6 and C6-7 with moderate bilateral lonnie ral foraminal narrowing and moderate spinal canal stenosis at both levels. No acute or aggressive bony abnormality is present. Straightening of the cervical spine may be related to patient positioning or muscle spasm. No lymphadenopathy, mass lesion, or fluid collection is present. Mild aortic arch calcifications are present. The brachiocephalic artery and bilateral subclavian arteries have normal caliber. There are mild calcifications in both common carotid arteries. There are mild calcifications within both carotid bulbs. There is mild soft plaque within the both carotid bulbs. 50% narrowing within the left carotid bulb is noted. 20% narrowing within the right carotid bulb is noted. The right vertebral artery is PAGE 1 Signed Report (CONTINUED) Name: JUAN KASPER [facility] : [birth year] Age/S: 78 / M [address] [place] [address] Blvd Unit #: [id number] Loc: [place] [address] Phys: Dwayne Peters DO Acct: [id number] Dis Date: Status: REG ER PHONE #: [phone] Exam Date: 05/11/2018 1033 FAX #: [phone] Reason: LEFT FACIAL DROOP, SLURRED SPEECH EXAMS: CPT CODE: [id number] CT ANGIO HEAD 28017 <Continued> dominant. Both vertebral arteries are patent with normal caliber. IMPRESSION: 1. No large vessel occlusion, aneurysm, or significant stenosis within [place] of [place]. 2. 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 3. 50% narrowing within left carotid bulb. 20% narrowing within right carotid bulb. 4. Moderate degenerative disc disease at C5-6 and C6-7. Findings were discussed with Dr. Lancaster by Dr. Menezes at 10:53 AM on 05/11/2018. SL: [id number] at 1056 Reported and signed by: Jonatan Menezes M.D. CC: Dwayne Peters DO Technologist:RT Dipesh(R)(CT) CTDI: DLP: Trnscb Date/Time: 05/11/2018 (1056) [email or web address] Orig Print D/T: S: 05/11/2018 (0363) CTDI: DLP: PAGE 2 Signed Report COMPREHENSIVE METABOLIC [id number] 10:50:00* Test Item Value Reference Range Comments SODIUM (test code=NA) 137 mEq/L 134-147 POTASSIUM (test code=K) 5.0 mEq/L 3.4-5.0 SPECIMEN 1+ HEMOLYZED.Results known to be adversely affected by hemolysis are: Potassium Magnesium LDH Phosphorus CHLORIDE (test code=CL) 104 mEq/L 100-108 CARBON DIOXIDE (test code=CO2) 27 mEq/L 21-33 ANION GAP (test code=GAP) 11 0-20 GLUCOSE (test code=GLU) 211 mg/dL 70-110 BLOOD UREA NITROGEN (test code=BUN) 11 mg/dL 7-18 GLOMERULAR FILTRATION RATE (test code=GFR) 58.3 70-80 Units of measure=ml/min/1.73 m2 CREATININE (test code=CREAT) 1.2 mg/dL 0.6-1.3 TOTAL PROTEIN (test code=PROT) 7.0 g/dL 6.4-8.2 ALBUMIN (test code=ALB) 2.90 g/dL 3.4-5.0 CALCIUM (test code=CA) 9.1 mg/dL 8.0-10.5 BILIRUBIN TOTAL (test code=BILT) 0.20 mg/dL 0.0-1.0 SGOT/AST (test code=AST) 23 IUnit/L 15-37 SGPT/ALT (test code=ALT) 16 IUnit/L 15-65 ALKALINE PHOSPHATASE TOTAL (test code=ALKP) 103 IUnit/L 20-125 [id number] 10:50:00* Test Item Value Reference Range Comments MAGNESIUM (test code=MAG) 1.80 mg/dL 1.8-2.4 - CT HEAD/BRAIN W/O [id number] 10:50:00 Name: JUAN KASPER [facility] : 1940 Age/S: 78 / M [address] [place] [address] Unit #: [id number] Loc: [place] [address] Phys: Dwayne Peters Q DO Acct: [id number] Dis Date: Status: REG ER PHONE #: [phone] Exam Date: 05/11/2018 1033 FAX #: [phone] Reason: LEFT FACIAL DROOP, SLURRED SPEECH EXAMS: CPT CODE: [id number] CT HEAD/BRAIN W/O CONT 08416 EXAM: CT HEAD WITHOUT CONTRAST HISTORY: 78-year-old male with left facial droop, slurred speech TECHNIQUE: CT images were obtained from the foramen magnum to the vertex without the use of intravenous contrast on a multidetector CT. Coronal and sagittal reconstructions were obtained. DOSE: CT imaging performed at this location utilizes radiation dose optimization technique which includes one or more of the followin) Automated exposure control; 2) Adjustment of the mA and/or kV according to patient's size; 3) Use of iterative reconstruction techniques DLP (mGy-cm): 472.16 COMPARISON: CT head 06/24/2014 FINDINGS: BRAIN PARENCHYMA: Generalized atrophy. Periventricular white matter lucency most consistent with chronic microvascular ischemic changes. Re mote small lacunar infarcts noted in the left basal ganglia. Small region of hypodensity noted in the lateral left occipital cortex likely concerni ng for age indeterminate infarct. Encephalomalacia noted in the left occi pital lobe likely from remote insult. There are no focal mass lesions on this noncontrast head CT. There is no mass effect, midline shift or edema. There are no intra-axial or extra-axial fluid collections, intraventricul ar or intraparenchymal hemorrhage. The pineal, sellar, brainstem, cerebell um and skull base regions appear unremarkable. Vascular calcifications. VENTRICLES: The lateral ventricles, third and fourth ventricles jeannie ear mildly enlarged likely related to ex vacuo dilatation. The basilar cisterns are normal. ORBITS, MASTOIDS AND PARANASAL SINUSES: T he visualized orbits and paranasal sinuses are unremarkable. The mastoid a ir cells are clear. SKULL: There are no osseous abnormalities. If there is further concern for intracranial pathology or acute stroke, MRI of the brain may be performed for complete assessment. IMPRESSION: PAGE 1 Signed Report (CONTINUED) Name: JUAN KASPER [facility] : 1940 Age/S: 78 / M [address] [place] [address] Unit #: [id number] Loc: [place] [address] Phys: Dwayne Peters Q DO Acct: [id number] Dis Date: Status: REG ER PHONE #: [phone] Exam Date: 05/11/2018 1033 FAX #: [phone] Reason: LEFT FACIAL DROOP, SLURRED SPEECH EXAMS: CPT CODE: [id number] CT HEAD/BRAIN W/O CONT 39727 < Continued> 1. Small region of hypodensity noted in the left occipital lobe likely representing age indeterminate infarct. Consider MRI for better characterization. 2. Additional medial left occipital encephalomalacia likely related to remote infarct. 3. Generalized atrophy and chronic microvascular ischemic changes. A verbal report was called to Dwayne Peters DO on 05/11/2018 10:48 AM. SL: [id number] at 1050 Reported and signed by: Johanna Mendosa M.D. CC: Dwayne Peters DO Technologist:RT Dipesh(R)(CT) CTDI: DLP: Trnscb Date/Time: 05/11/2018 (1050) [email or web address] Orig Print D/T: S: 05/11/2018 (6547) CTDI: DLP: PAGE 2 Signed Report COMPREHENSIVE METABOLIC [id number] 10:48:00* Test Item Value Reference Range Comments SODIUM (test code=NA) 137 mEq/L 134-147 POTASSIUM (test code=K) 5.0 mEq/L 3.4-5.0 SPECIMEN 1+ HEMOLYZED.Results known to be adversely affected by hemolysis are: Potassium Magnesium LDH Phosphorus CHLORIDE (test code=CL) 104 mEq/L 100-108 CARBON DIOXIDE (test code=CO2) 27 mEq/L 21-33 ANION GAP (test code=GAP) 11 0-20 GLUCOSE (test code=GLU) 211 mg/dL 70-110 BLOOD UREA NITROGEN (test code=BUN) 11 mg/dL 7-18 GLOMERULAR FILTRATION RATE (test code=GFR) 58.3 70-80 Units of measure=ml/min/1.73 m2 CREATININE (test code=CREAT) 1.2 mg/dL 0.6-1.3 TOTAL PROTEIN (test code=PROT) g/dL 6.4-8.2 ALBUMIN (test code=ALB) 2.90 g/dL 3.4-5.0 CALCIUM (test code=CA) 9.1 mg/dL 8.0-10.5 BILIRUBIN TOTAL (test code=BILT) mg/dL 0.0-1.0 SGOT/AST (test code=AST) 23 IUnit/L 15-37 SGPT/ALT (test code=ALT) 16 IUnit/L 15-65 ALKALINE PHOSPHATASE TOTAL (test code=ALKP) IUnit/L 20-125 [id number] 10:48:00* Test Item Value Reference Range Comments MAGNESIUM (test code=MAG) 1.80 mg/dL 1.8-2.4 PROTHROMBIN [id number] 10:35:00* Test Item Value Reference Range Comments PROTHROMBIN TIME PATIENT (test code=PTP) 12.6 SECONDS 9.3-12.9 INTERNATIONAL NORMAL RATIO (test code=INR) 1.1 0.8-1.2 TARGET INR BY INDICATION Indication INR1. Prophylaxis of venous thrombosis 2.0 - 3.0 (orthopedic surgery), Prophylaxis of venous thrombosis (other than high-risk surgery), Treatment of Deep Vein Thrombosis/Pulmonary Embolism, Prevention of systemic embolism - Tissue heart valves, Acute Myocardial Infarction (to prevent systemic embolism), Valvular heart disease, Atrial Fibrillation, Bileaflet mechanical valve in aortic position.2. Mechanical prosthetic valves (high risk), 2.5 - 3.5 Presence of Lupus Anticoagulant or Antiphospholipid Antibodies, Prevention of systemic embolism - Acute Myocardial Infarction (to prevent recurrent infarct). THROMBOPLASTIN TIME [id number] 10:35:00* Test Item Value Reference Range Comments THROMBOPLASTIN TIME PARTIAL (test code=PTT) 33.5 Seconds 25.0-39.5 Therapeutic Range: 61.8-83.8 Sec Effective 05/17/2013 CBC W/AUTO [id number] 10:24:00* Test Item Value Reference Range Comments WHITE BLOOD CELL (test code=WBC) 11.96 x10 3/uL 4.5-11.0 RED BLOOD CELL (test code=RBC) 3.51 x10 6/uL 4.00-5.60 HEMOGLOBIN (test code=HGB) 10.3 g/dL 12.5-16.9 HEMATOCRIT (test code=HCT) 33.0 % 37.5-50.7 MEAN CELL VOLUME (test code=MCV) 94.0 fL 81.0-99.0 MEAN CELL HGB (test code=MCH) 29.3 pg 27.0-33.0 MEAN CELL HGB CONCETRATION (test code=MCHC) 31.2 g/dL 33.0-37.0 RED CELL DISTRIBUTION WIDTH CV (test code=RDW) 12.9 % 11.5-14.5 RED CELL DISTRIBUTION WIDTH SD (test code=RDW-SD) 44.5 fL 37.0-54.0 PLATELET COUNT (test code=PLT) 374 x10 3/uL 150-400 MEAN PLATELET VOLUME (test code=MPV) 9.7 fL 7.0-9.0 NEUTROPHIL % (test code=NT%) 75.3 % 56.0-77.0 IMMATURE GRANULOCYTE % (test code=IG%) 0.7 % 0.0-2.0 LYMPHOCYTE % (test code=LY%) 13.9 % 14.0-32.0 MONOCYTE % (test code=MO%) 6.9 % 4.8-9.0 EOSINOPHIL % (test code=EO%) 2.6 % 0.3-3.7 BASOPHIL % (test code=BA%) 0.6 % 0.0-2.0 NUCLEATED RBC % (test code=NRBC%) 0.0 % 0-0 NEUTROPHIL # (test code=NT#) 9.01 x10 3/uL 2.0-7.6 IMMATURE GRANULOCYTE # (test code=IG#) 0.08 x10 3/uL 0.00-0.03 LYMPHOCYTE # (test code=LY#) 1.66 x10 3/uL 1.0-3.8 MONOCYTE # (test code=MO#) 0.83 x10 3/uL 0.1-0.8 EOSINOPHIL # (test code=EO#) 0.31 x10 3/uL 0.0-0.2 BASOPHIL # (test code=BA#) 0.07 x10 3/uL 0.0-0.2 NUCLEATED RBC # (test code=NRBC#) 0.00 x10 3/uL 0.0-0.1 MANUAL DIFF REQUIRED (test code=MDIFF) NO
[2018-08-31 02:26] LABS: ALANINE AMINOTRANSFERASE 16 IU/L (0-55); ALBUMIN 3.4 g/dL (3.5-5.0); ALBUMIN/GLOBULIN RATIO 1.4 (0.8-2.0); ALKALINE PHOSPHATASE 105 IU/L (40-150); ANION GAP 17.2 mmol/L (8-16); BLOOD UREA NITROGEN 58 mg/dL (7-26); BUN/CREATININE RATIO 50 (6-25); CALCIUM 9.6 mg/dL (8.4-10.2); CARBON DIOXIDE 21 mmol/L (22-29); CHLORIDE 105 mmol/L (98-107); CREATININE, SERUM 1.15 mg/dL (0.72-1.25); EST GLOMERULAR FILTRATION RATE > 60 ML/MIN (60-); GLUCOSE 131 mg/dL (74-118); POTASSIUM 5.2 mmol/L (3.5-5.1); SODIUM 138 mmol/L (136-145)
--- NOTE | 2018-08-31 02:55 | NUR ---
spoke to lab regarding potassium 5.2, states was hemolyzed. blood redrawn and sent to lab
[2018-08-31 03:15] LABS: CALCIUM 9.1 mg/dL (8.4-10.2); CHLORIDE 106 mmol/L (98-107); GLUCOSE 113 mg/dL (74-118); POTASSIUM 4.6 mmol/L (3.5-5.1); SODIUM 138 mmol/L (136-145)
[2018-08-31 03:28] LABS: ANION GAP 16.6 mmol/L (8-16); BLOOD UREA NITROGEN 57 mg/dL (7-26); BUN/CREATININE RATIO 54 (6-25); CARBON DIOXIDE 20 mmol/L (22-29); CREATININE, SERUM 1.05 mg/dL (0.72-1.25); EST GLOMERULAR FILTRATION RATE > 60 ML/MIN (60-)
[2018-08-31] MEDS ORDERED: ACETAMINOPHEN 325 MG TAB ONE (04:21)
[2018-08-31] MEDS ORDERED: SODIUM CHLORIDE 0.9% 250ML 250 ML ONE ×2 (04:32→08:11)
[2018-08-31] MEDS ORDERED: ACETAMINOPHEN325 M1 PO (05:17)
[2018-08-31] MEDS ORDERED: HUMULIN R100 UNIT/2 (05:17)
[2018-08-31] MEDS ORDERED: DITROPAN XL5 MG PO (05:17)
[2018-08-31] MEDS ORDERED: NAMENDA10 MG PO (05:17)
[2018-08-31] MEDS ORDERED: CARBAMAZEPINE200 MG PO (05:17)
[2018-08-31] MEDS ORDERED: METFORMIN HCL500 MG PO (05:17)
[2018-08-31] MEDS ORDERED: FLOMAX0.4 MG PO (05:17)
[2018-08-31] MEDS ORDERED: ZOLOFT50 MG PO (05:17)
[2018-08-31] MEDS ORDERED: NITROGLYCERIN0.4 MG SL (05:17)
[2018-08-31] MEDS ORDERED: ATORVASTATIN CA20 MG PO (05:17)
[2018-08-31] MEDS ORDERED: HYDRALAZINE HCL25 MG PO (05:17)
[2018-08-31] MEDS ORDERED: LEVETIRACETAM500 MG PO (05:17)
[2018-08-31] MEDS ORDERED: LASIX20 MG PO (05:17)
[2018-08-31] MEDS ORDERED: OMEPRAZOLE40 MG PO (05:17)
[2018-08-31] MEDS ORDERED: GLIMEPIRIDE2 MG PO (05:17)
[2018-08-31] MEDS ORDERED: CARVEDILOL3.125 MG PO (05:17)
--- NOTE | 2018-08-31 06:52 | NUR ---
report to chitra plascencia
[2018-08-31] MEDS ORDERED: DEXTROSE 50% SYRINGE 50 ML IV PRN (07:00)
--- NOTE | 2018-08-31 07:00 | NUR ---
RECEIVED REPORT FROM JANNETH Galaviz, SIDEROGRAPHIST PATIENT SLEEPING, EASILY AWAKENED. BLOOD TRANSFUSION IN PROGRESS VIA R/FA PIV. SITTER AT BEDSIDE
[2018-08-31] MEDS: FUROSEMIDE INJ 10 MG/ML 4 ML VIAL IV PRN ×2 (07:43→11:25)
[2018-08-31] MEDS: INSULIN REGULAR, HUMAN 100 UNIT/1 ML 3ML VIAL SQ SCH ×4 (07:44→21:12)
[2018-08-31 08:13] LABS: HEMATOCRIT 23.7 % (38.2-49.6); HEMOGLOBIN 7.6 g/dL (14.0-18.0)
--- NOTE | 2018-08-31 08:31 | NUR ---
2ND UNIT PRBC INFUSING
--- NOTE | 2018-08-31 10:12 | NUR ---
CALLED [facility], SPOKE WITH OSCAR SHE STATES THEY WILL COME RADIOTELEGRAPHIST WHEN PT IS MEDICALLY STABLE.
--- NOTE | 2018-08-31 11:34 | NUR ---
SITTER REMAINS AT BEDSIDE, PATIENT INTERMITTENTLY AGIATED WHEN ATTEMPTING TO TURN OR CLEAN HIM UP OR ADJUST SHEETS
--- NOTE | 2018-08-31 12:08 | NUR ---
SPOKE WITH DR. Panfilo HAYES REGARDING HIS CONSULT. HE IS AWARE HE WILL GOING BACK TO HIS FACILITY
[2018-08-31 12:48] LABS: HEMATOCRIT 26.6 % (38.2-49.6); HEMOGLOBIN 8.9 g/dL (14.0-18.0)
--- NOTE | 2018-08-31 13:12 | NUR ---
SITTER AT BEDSIDE. PATIENT INTERMITTENTLY AGITATED. YELLS HELP ME I WANT TO . HITS AT STAFF. YELLS I WANT TO , TAKE EVERYTHING OFF.
--- NOTE | 2018-08-31 13:39 | NUR ---
SPOKE WITH DR. HAYES REGARDING PATIENTS HGB AND OCCULT POSITIVE. HE WANTS CONSENT FOR EGD
--- NOTE | 2018-08-31 13:55 | NUR ---
CONSENT FOR EGD OBTAINED PER SON ON PHONE. LAST LIQUID WAS AT 1130
--- NOTE | 2018-08-31 14:32 | NUR ---
SPOKE WITH DR. HAYES. EGD WILL BE DONE IN THE MORNING. NPO AFTER MIDNIGHT IF PATIENT DISCHARGED TOMORROW BACK TO [facility]. SPEAK WITH MELY. INTERIM DON TO APPROVE SOMEONE TO COME PICK HIM UP [facility] ([phone][facility]
[2018-08-31] MEDS ORDERED: NITROGLYCERIN 0.4 MG SUBL SL PRN (14:45)
--- NOTE | 2018-08-31 14:51 | NUR ---
CALLED [facility] AND SPOKE WITH INTERIM ONEL BOONE SHE STATES WHEN THE PT IS READY TO DISCHARGE TO CALL HER AT [phone] AND SHE WILL SEND TRANSPORT TO [facility] EDITOR PATIENT. LET KNOW PT WILL BE HAVING A EGD IN AM BUT WILL UPDATE HER I CAN.
[2018-08-31 16:00] VITALS: BP 188/80
--- NOTE | 2018-08-31 16:00 | NUR ---
Patient arrived to the unit at this time. Patient is talking and alert to self. Patient's skin is intact. Sitter is at the bedside. Patient is calm. Not combative and cooperative. Call trevino is within reach of the sitter. Bed is low and locked. Perlita-orbital edema to the left eye. Patient favors the left side. No other edema noted.
[2018-08-31 16:23] VITALS: BP 188/80
[2018-08-31] MEDS: CARBAMAZEPINE 200 MG TAB PO SCH (17:35)
[2018-08-31] MEDS: OXYBUTYNIN CHLORIDE XL 5 MG TAB PO SCH (17:35)
[2018-08-31] MEDS: CARVEDILOL 3.125 MG TAB PO SCH (17:35)
[2018-08-31] MEDS: LEVETIRACETAM 500 MG TAB PO SCH (17:35)
[2018-08-31] MEDS: HYDRALAZINE HCL 25 MG TAB PO SCH ×2 (17:53→21:11)
--- NOTE | 2018-08-31 19:00 | NUR ---
Received bedside shift report from dayshift RN. Patient is AOx1. Bed set low, side rails up x2, bed alarm on with call light within reach. Patient reported no pain. Patient is repeatedly asking for food but is on clear liquid diet.
[2018-08-31 20:00] VITALS: BP 188/80
--- NOTE | 2018-08-31 20:22 | NUR ---
According to patient's and son, patient is Limited Code Status. Compressions and medications are all that is permissible according to patient's wishes. Changed status in the computer.
[2018-08-31 20:43] LABS: HEMATOCRIT 27.5 % (38.2-49.6); HEMOGLOBIN 9.3 g/dL (14.0-18.0)
[2018-08-31] MEDS ORDERED: ATORVASTATIN 20 MG TAB PO SCH (21:00)
[2018-08-31] MEDS: ATORVASTATIN 40 MG TAB PO SCH (21:11)
[2018-08-31] MEDS: MEMANTINE 10 MG TAB PO SCH (21:11)
--- NOTE | 2018-08-31 21:35 | History and Physical ---
HISTORY OF PRESENT ILLNESS: He is an 78-year-old senior care resident with past medical history positive for hypertension, history of diabetes, history of dementia, history of benign prostatic hypertrophy. The patient was sent to the emergency room due to the fact that he was having anemia and dark stools. He was diagnosed with an upper GI bleed. Gastroenterology is being consulted on the case. The patient is very confused, very agitated, very difficult to perform a physical exam. He denies any pain. REVIEW OF SYSTEMS: I was unable to do it because the patient is very agitated. ALLERGIES: APPARENTLY, HE IS NOT ALLERGIC TO ANY MEDICATION. SOCIAL HISTORY: He lives in a senior care, not too much about this patient. PAST MEDICAL HISTORY: Hypertension, diabetes mellitus type 2, benign prostatic hypertrophy, gastroesophageal reflux disease. PHYSICAL EXAMINATION: HEART: Showed regular rhythm. Normal S1 and S2 sound. LUNGS: Clear bilaterally. ABDOMEN: Soft. EXTREMITIES: Show no evidence of cyanosis, edema, or trauma. VITAL SIGNS: Blood pressure 162/88, temperature 98.3, heart rate 68 per minute, respiratory rate 18 per minute, oxygen saturation 99%. LABORATORY DATA: On the blood work, we have CBC; white blood count 13.46, hemoglobin 8.9, hematocrit 26.6, and platelet count 695,000. On the BMP; sodium 138, potassium 4.6, chloride 106, CO2 of 20, BUN 67, creatinine 1.05, GFR of 60, glucose 113, calcium 9.1, total bilirubin 0.2, AST 19, ALT 16, alkaline 105, total protein 5.9, albumin 3.4, and globulin 2.5, albumin and globulin ratio 1.4. FINAL IMPRESSION: 1. Upper gastrointestinal bleed. 2. Acute anemia secondary to gastrointestinal bleed. 3. Hypertension. 4. Uncontrolled diabetes mellitus type 2. 5. Benign prostatic hypertrophy. 6. Gastroesophageal reflux disease. 7. Confusion. 8. Acute renal failure. PLAN OF TREATMENT: We are going to continue to monitor hemoglobin and hematocrit, transfuse if hemoglobin goes below 7.0. Dr. Faisal Freeman has been consulted from a Gastroenterology point of view. In the meantime, continue Lipitor 80 mg daily, carbamazepine 200 mg twice a day, Coreg 3.125 mg twice a day, D50 IV push as needed for hypoglycemia. Continue Lasix 20 mg daily, glimepiride 1 mg daily, hydralazine 50 mg three times a day, Keppra 500 mg twice a day, Namenda 5 mg at bedtime, nitroglycerin 0.4 mg sublingual every 5 minutes p.r.n. for chest pain, oxybutynin 5 mg twice a day, Protonix 40 mg daily. Continue monitoring blood sugar before meals and at bedtime. Continue Zoloft 25 mg daily, Flomax 0.4 mg daily, vitamin K 10 mg one time. MD EDVIN Morgan/DANNY /[id number]
[2018-08-31 22:58] VITALS: BP 155/70
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
[2018-09-01 05:00] VITALS: BP 169/74
[2018-09-01 05:26] LABS: BASOPHILS # (AUTO) 0.1 (0.0-0.1); BASOPHILS % 0.7 % (0.0-1.0); EOSINOPHILS # (AUTO) 0.6 (0.0-0.4); EOSINOPHILS % 4.4 % (0.0-6.0); HEMATOCRIT 28.1 % (38.2-49.6); HEMOGLOBIN 9.2 g/dL (14.0-18.0); LYMPHOCYTES # (AUTO) 3.3 (1.0-3.2); LYMPHOCYTES % 24.4 % (18.0-39.1); MEAN CORPUSCULAR HEMOGLOBIN 27.7 pg (28-32); MEAN CORPUSCULAR HGB CONC 32.7 g/dL (31-35); MEAN CORPUSCULAR VOLUME 84.6 fL (81-99); MONOCYTES # (AUTO) 0.9 (0.2-0.8); NEUTROPHILS # (AUTO) 8.4 (2.1-6.9); NEUTROPHILS % 63.1 % (38.7-80.0); PLATELET COUNT 388 x10e3/uL (140-360); RED BLOOD COUNT 3.32 x10e6/uL (4.3-5.7); RED CELL DISTRIBUTION WIDTH 16.1 % (11.7-14.4)
[2018-09-01 05:53] LABS: BLOOD UREA NITROGEN 38 mg/dL (7-26); BUN/CREATININE RATIO 44 (6-25); CALCIUM 9.7 mg/dL (8.4-10.2); CARBON DIOXIDE 24 mmol/L (22-29); CHLORIDE 104 mmol/L (98-107); CREATININE, SERUM 0.86 mg/dL (0.72-1.25); EST GLOMERULAR FILTRATION RATE > 60 ML/MIN (60-); GLUCOSE 86 mg/dL (74-118); SODIUM 136 mmol/L (136-145)
[2018-09-01] MEDS: INSULIN REGULAR, HUMAN 100 UNIT/1 ML 3ML VIAL SQ SCH ×4 (07:30→20:43)
[2018-09-01 08:15] VITALS: BP 145/65
[2018-09-01] MEDS ORDERED: GLIMEPIRIDE 2 MG TAB PO SCH (09:00)
[2018-09-01] MEDS: OXYBUTYNIN CHLORIDE XL 5 MG TAB PO SCH ×2 (09:00→18:15)
[2018-09-01] MEDS: CARVEDILOL 3.125 MG TAB PO SCH ×2 (09:00→18:12)
[2018-09-01] MEDS: CARBAMAZEPINE 200 MG TAB PO SCH ×2 (09:00→18:11)
[2018-09-01] MEDS: HYDRALAZINE HCL 25 MG TAB PO SCH ×3 (09:00→20:42)
[2018-09-01] MEDS: FUROSEMIDE 20 MG TAB PO SCH ×2 (09:00→18:14)
[2018-09-01] MEDS: PANTOPRAZOLE SOD 40 MG TABEC PO SCH (09:00)
[2018-09-01] MEDS: LEVETIRACETAM 500 MG TAB PO SCH ×2 (09:00→18:11)
--- NOTE | 2018-09-01 11:18 | Progress Note ---
DATE: 09/01/2018 Internal Medicine Progress Note SUBJECTIVE: An 78-year-old male with dementia, psychosis, very uncooperative, very angry. The patient came here with anemia. He is going to undergo an EGD today. PHYSICAL EXAMINATION: VITAL SIGNS: Blood pressure 169/74, temperature 96.8, heart rate 69 per minute, respiratory rate 18 per minute, oxygen saturation 95%. HEART: Showed regular rhythm. LUNGS: Clear bilaterally. ABDOMEN: Soft. LABORATORY DATA: BMP; sodium 136, potassium 4.0, chloride 104, CO2 of 24, BUN 38, creatinine 0.86, glucose 86. CBC; white count 13,300, hemoglobin 9.2, hematocrit 28.1, platelet count 388,000. AST 19, ALT 16, total bilirubin 0.2, alkaline phosphatase 105. FINAL IMPRESSION: 1. Acute anemia secondary to gastric bleed. 2. Guaiac-positive stools, most likely secondary to gastric bleed. 3. Hypertension. 4. Diabetes mellitus type 2. 5. Hyperlipidemia. 6. Seizure disorder. 7. Cerebrovascular accident. 8. Psychosis. 9. Leukocytosis. PLAN OF TREATMENT: Continue with monitoring blood sugar a.c. and h.s., glimepiride 1 mg daily, nitroglycerin 0.4 mg q.5 minutes p.r.n. for chest pain no more than three tablets, Flomax 0.4 mg daily, carbamazepine 200 mg twice a day, hydralazine 50 mg three times a day, Protonix 40 mg daily, Lipitor 80 mg daily, carvedilol 3.125 mg twice a day, Keppra 500 mg twice a day, oxybutynin 5 mg twice a day, furosemide 20 mg daily, Namenda 5 mg daily, and Zoloft 25 mg daily. We are going to hold the Amaryl while the patient is n.p.o., continue with fluids in the meantime, D5 normal saline at 80 mL an hour in the meantime while he is n.p.o. to prevent hypoglycemia. The patient as I said is very agitated and violent at times. The patient is going to have an EGD and then we will go from there. Dr. Moisés Freeman will be covering for me from tomorrow, Wednesday, September 02, 2018, 7:00 a.m. until Friday, September 07, 2018. MD EDVIN Morgan/DANNY /[id number]
[2018-09-01 11:41] VITALS: BP 145/65
[2018-09-01 14:04] LABS: CLARITY,URINE SL CLOUDY (CLEAR); COLOR,URINE YELLOW (YELLOW); KETONES,URINE NEGATIVE (NEGATIVE); LEUKOCYTE ESTERASE ,URINE NEGATIVE (NEGATIVE); NITRITE,URINE NEGATIVE (NEGATIVE); PROTEIN,URINE DIPSTICK 1+ (NEGATIVE)
[2018-09-01 14:05] LABS: BILIRUBIN,URINE NEGATIVE (NEGATIVE); URINE UROBILINOGEN 0.2 mg/dL (0.2 - 1)
[2018-09-01 14:14] LABS: HEMATOCRIT 26.7 % (38.2-49.6); HEMOGLOBIN 9.2 g/dL (14.0-18.0)
[2018-09-01 14:14] LABS: AMORPHOUS SEDIMENT,URINE FEW (FEW); BACTERIA,URINE FEW /HPF
[2018-09-01] MEDS ORDERED: FENTANYL CITRATE/PF 100MCG/2 ML INJ ONE (14:14)
[2018-09-01] MEDS ORDERED: LIDOCAINE HCL 2% LOCAL INJ 5 ML SDV VIAL INJ ONE (14:36)
[2018-09-01] MEDS ORDERED: PROPOFOL IV EMULSION 10 MG/ML 50 ML VIAL ONE (14:36)
[2018-09-01 15:53] VITALS: BP 138/65
[2018-09-01] MEDS: SERTRALINE HCL 50 MG TAB PO SCH (18:12)
[2018-09-01] MEDS: TAMSULOSIN HCL 0.4 MG CAP PO SCH (18:13)
[2018-09-01] MEDS: DEXTROSE 5%/0.9% SOD CHL 1,000 ML IV SCH ×2 (18:15→22:35)
[2018-09-01 18:48] LABS: HEMATOCRIT 27.5 % (38.2-49.6); HEMOGLOBIN 9.1 g/dL (14.0-18.0)
--- NOTE | 2018-09-01 19:00 | NUR ---
Received bedside shift report from dayshift RN. Patient is in bed, set low, side rails up x2, with call light within reach, with sitter at bedside.. Bed alarm on. Patient is not in distress.
[2018-09-01 19:30] VITALS: BP 138/65
[2018-09-01 20:00] VITALS: BP 142/68
[2018-09-01] MEDS: MEMANTINE 10 MG TAB PO SCH (20:42)
[2018-09-01] MEDS: ATORVASTATIN 40 MG TAB PO SCH (20:42)
--- NOTE | 2018-09-01 21:00 | NUR ---
The patient refused to have the IV fluid. RN explained to the patient the fluid is to help with the hydration but patient refused.
--- NOTE | 2018-09-01 22:51 | Operative Report ---
DATE OF PROCEDURE: 09/01/2018 SURGEON: Faisal Freeman MD PROCEDURE: Esophagogastroduodenoscopy. INDICATIONS FOR EGD: Anemia, guaiac-positive stools. MEDICATIONS: The patient was done under MAC, please see anesthesiologist's note. PROCEDURE IN DETAIL: With the patient in the left lateral decubitus position, flexible fiberoptic Olympus gastroscope was introduced into the esophagus under direct visualization without any difficulty. There was some patchy erythema noted in distal esophagus. The scope was then advanced with ease into the stomach traversing a small sliding hiatal hernia. Mucosa overlying the antrum and the body revealed some patchy erythema and some friability. The pylorus was of normal contour and shape, it was intubated with ease and the scope was advanced all the way to the second portion of the duodenum. The scope was then withdrawn slowly and mucosa overlying the proximal second portion and the duodenal bulb appeared to be within normal limits. The scope was then withdrawn back into the stomach and retroflexed and mucosa overlying the fundus and the cardia appeared to be within normal limits. The scope was then straightened out, it was subsequently withdrawn. The patient tolerated procedure well. IMPRESSION: 1. Mild distal esophagitis. 2. Small sliding hiatal hernia. 3. Gastritis. PLAN: Continue PPI therapy. Findings do not explain the patient's anemia. The patient might benefit from a colonoscopy. Faisal Freeman MD [facility]/MODL /[id number] cc: Heri Herrera MD
[2018-09-02] VITALS (9 sets, daily range): BP systolic 124–191; BP diastolic 59–86
--- NOTE | 2018-09-02 00:19 | NUR ---
At bedside with Dr. Panfilo Freeman explaining to the patient to the need to do the colonoscopy to determine why the anemia has occurred since the EGD was negative. Dr. Freeman explained to the patient will need to be taking laxatives to clear the bowel and only take clear liquid until the procedure is performed and completed. The patient refused because he "want to eat solid food" Dr. Freeman called Nithin, patient's son, to learn when the last time the patient had the colonoscopy. The son will call the facility where the last colonoscopy has taken place and call tomorrow with the information that will be relayed to the nurse then to Dr. Freeman.
[2018-09-02 05:24] LABS: BASOPHILS # (AUTO) 0.1 (0.0-0.1); BASOPHILS % 0.6 % (0.0-1.0); EOSINOPHILS # (AUTO) 0.5 (0.0-0.4); EOSINOPHILS % 4.1 % (0.0-6.0); HEMATOCRIT 25.3 % (38.2-49.6); HEMOGLOBIN 8.4 g/dL (14.0-18.0); LYMPHOCYTES % 25.6 % (18.0-39.1); MEAN CORPUSCULAR HEMOGLOBIN 28.3 pg (28-32); MEAN CORPUSCULAR HGB CONC 33.2 g/dL (31-35); MEAN CORPUSCULAR VOLUME 85.2 fL (81-99); MONOCYTES % 8.1 % (4.4-11.3); NEUTROPHILS # (AUTO) 7.2 (2.1-6.9); NEUTROPHILS % 61.3 % (38.7-80.0); PLATELET COUNT 363 x10e3/uL (140-360); RED BLOOD COUNT 2.97 x10e6/uL (4.3-5.7); RED CELL DISTRIBUTION WIDTH 15.9 % (11.7-14.4)
[2018-09-02 05:46] LABS: ANION GAP 10.4 mmol/L (8-16); BLOOD UREA NITROGEN 35 mg/dL (7-26); BUN/CREATININE RATIO 31 (6-25); CALCIUM 9.3 mg/dL (8.4-10.2); CARBON DIOXIDE 25 mmol/L (22-29); CHLORIDE 104 mmol/L (98-107); CREATININE, SERUM 1.14 mg/dL (0.72-1.25); EST GLOMERULAR FILTRATION RATE > 60 ML/MIN (60-); GLUCOSE 139 mg/dL (74-118); POTASSIUM 4.4 mmol/L (3.5-5.1); SODIUM 135 mmol/L (136-145)
--- NOTE | 2018-09-02 07:30 | NUR ---
REC'D PT AAOX1, ON RA, NO S/S OF DISTRESS. PT IS AGITATED AND CONFUSED. 1:1 SITTER IS AT BEDSIDE. SIDE RAILS ARE UP X2, CALL CASIANO WITHIN REACH, AND BED IN LOWEST POSITION.
[2018-09-02] MEDS: INSULIN REGULAR, HUMAN 100 UNIT/1 ML 3ML VIAL SQ SCH ×4 (08:00→21:00)
--- NOTE | 2018-09-02 08:17 | NUR ---
SPOKE WITH NURSE THIS MORNING, IF PT IS NOT GOING TO HAVE A PROCEDURE I WILL HAVE TO BE NOTIFIED, THIS PT WAS SUPPOSED TO RETURN [facility] SINCE ARRIVAL. NOW MAY HAVE TO GET ANOTHER WARRANT WILL SPEAK WITH FACILITY TO FIND OUT.
[2018-09-02] MEDS: AMLODIPINE BESYLATE 5 MG TAB PO SCH (10:32)
[2018-09-02] MEDS: OXYBUTYNIN CHLORIDE XL 5 MG TAB PO SCH ×2 (10:32→17:00)
[2018-09-02] MEDS: GLIMEPIRIDE 2 MG TAB PO SCH (10:32)
[2018-09-02] MEDS: HYDRALAZINE HCL 25 MG TAB PO SCH ×3 (10:32→21:00)
[2018-09-02] MEDS: CARVEDILOL 3.125 MG TAB PO SCH ×2 (10:32→17:00)
[2018-09-02] MEDS: LEVETIRACETAM 500 MG TAB PO SCH ×2 (10:32→17:00)
[2018-09-02] MEDS: TAMSULOSIN HCL 0.4 MG CAP PO SCH (10:32)
[2018-09-02] MEDS: CARBAMAZEPINE 200 MG TAB PO SCH ×2 (10:33→17:00)
[2018-09-02] MEDS: LISINOPRIL 10 MG TAB PO SCH (10:33)
[2018-09-02] MEDS: PANTOPRAZOLE SOD 40 MG TABEC PO SCH (10:33)
[2018-09-02] MEDS: SERTRALINE HCL 50 MG TAB PO SCH (10:33)
--- NOTE | 2018-09-02 11:29 | Progress Note ---
DATE: 09/02/2018 SUBJECTIVE: Mr. Lopez is an 78-year-old patient, snf resident with past history of hypertension, diabetes, dementia, and BPH, came to the emergency room because he had dark stools and anemia. He was found to have GI bleed. He was seen by GI, had an endoscopy done yesterday that showed esophagitis and gastritis. GI still thinks that this is not the source for the bleeding and he may need a colonoscopy, family to find out if he had colonoscopy done recently. OBJECTIVE: GENERAL: He is awake and alert. He has a one-to-one person with him because apparently he was suicidal. VITAL SIGNS: Temperature is 97.4 and blood pressure 148/79. HEART: Regular rate. LUNGS: Clear to auscultation. ABDOMEN: Soft. LABORATORY DATA: On the blood work; white count is 11.79, hemoglobin is 8.4, hematocrit is 25.3. Potassium 4.4, creatinine is 1.14, and glucose 139. Urine culture is pending. ASSESSMENT: 1. Acute anemia secondary to gastrointestinal bleed. 2. Positive stool guaiac, maybe upper or lower gastrointestinal bleed. 3. Hypertension. 4. Diabetes, type 2. 5. Seizure disorder. 6. Hyperlipidemia. 7. Psychosis with apparently some suicidal ideation. 8. History of cerebrovascular accident. 9. Leukocytosis. PLAN: Plan at present time is to get Psych consult to evaluate the patient and be sure he is safe to go back home or snf. Continue carbamazepine for seizures. Continue glimepiride for his diabetes. He is also on Lipitor 80 mg daily. Continue PPIs for gastritis and esophagitis. Continue Namenda for dementia. All this was discussed with the patient and all questions were answered to satisfaction. We are going to wait for Psych evaluation on this patient as well as Dr. Faisal Freeman is going to discuss with his son, he had a recent colonoscopy or he needs a new one. MD WONG Singleton/DANNY /[id number]
--- NOTE | 2018-09-02 12:10 | NUR ---
SPOKE WITH SON OVER PHONE ABOUT DISCHARGE BACK TO FACILITY IF HE GOES WITHIN THE NEXT [address] HE STATES HE UNDERSTANDS. STATES HE IS GETTING INFORMATION FOR DOCTOR.
[2018-09-02 12:23] LABS: HEMATOCRIT 26.8 % (38.2-49.6); HEMOGLOBIN 8.8 g/dL (14.0-18.0)
[2018-09-02 18:31] LABS: HEMATOCRIT 24.8 % (38.2-49.6)
--- NOTE | 2018-09-02 18:52 | NUR ---
PT HAS TALKED TO PAULA ROE AND PT HAS AGREED TO HAVE COLONOSCOPY. WILL NOTIFY FLYING SQUAD WORKER NURSE.
[2018-09-02] MEDS: ACETAMINOPHEN 325 MG TAB PO PRN (19:20)
[2018-09-02] MEDS: MEMANTINE 10 MG TAB PO SCH (21:23)
[2018-09-02] MEDS: ATORVASTATIN 40 MG TAB PO SCH (21:23)
[2018-09-03] VITALS (7 sets, daily range): BP systolic 119–147; BP diastolic 58–69
[2018-09-03] MEDS: ACETAMINOPHEN 325 MG TAB PO PRN (00:23)
[2018-09-03] MEDS ORDERED: BISACODYL 5 MG TAB EC PO ONE ×3 (03:00→04:00)
[2018-09-03] MEDS ORDERED: CITRATE OF MAGNESIA 300ML BOTTLE PO ONE ×2 (05:00→07:00)
[2018-09-03 05:16] LABS: HEMATOCRIT 24.7 % (38.2-49.6); HEMOGLOBIN 8.2 g/dL (14.0-18.0)
[2018-09-03 05:57] LABS: FERRITIN 123.42 ng/mL (21.81-274.66)
[2018-09-03 06:08] LABS: FOLATE 6.1 ng/mL (7.0-15.4)
--- NOTE | 2018-09-03 07:00 | NUR ---
RECEIVED PT AAOX1. BED AT LOWEST POSITION AND LOCKED. SIDE RAILS UP X 2. CALL CASIANO WITH IN REACH. BED ALARM IS ON. SITTER AT BEDSIDE. PT DENIES NEEDS AT THIS TIME.
[2018-09-03] MEDS: GLIMEPIRIDE 2 MG TAB PO SCH (07:54)
[2018-09-03] MEDS: HYDRALAZINE HCL 25 MG TAB PO SCH ×3 (07:55→21:24)
[2018-09-03] MEDS: TAMSULOSIN HCL 0.4 MG CAP PO SCH (07:56)
[2018-09-03] MEDS: OXYBUTYNIN CHLORIDE XL 5 MG TAB PO SCH ×2 (07:56→17:00)
[2018-09-03] MEDS: CARVEDILOL 3.125 MG TAB PO SCH ×2 (07:56→17:00)
[2018-09-03] MEDS: LEVETIRACETAM 500 MG TAB PO SCH ×2 (07:57→17:00)
[2018-09-03] MEDS: FUROSEMIDE 20 MG TAB PO SCH (07:57)
[2018-09-03] MEDS: LISINOPRIL 10 MG TAB PO SCH (07:58)
[2018-09-03] MEDS: AMLODIPINE BESYLATE 5 MG TAB PO SCH (07:58)
[2018-09-03] MEDS: PANTOPRAZOLE SOD 40 MG TABEC PO SCH (07:58)
[2018-09-03] MEDS: SERTRALINE HCL 50 MG TAB PO SCH (07:59)
[2018-09-03] MEDS: CARBAMAZEPINE 200 MG TAB PO SCH ×2 (07:59→17:00)
[2018-09-03] MEDS: INSULIN REGULAR, HUMAN 100 UNIT/1 ML 3ML VIAL SQ SCH ×4 (08:19→21:25)
[2018-09-03] MEDS ORDERED: EPHEDRINE SULFATE INJ 50 MG/10 ML SYR ONE (11:09)
[2018-09-03] MEDS ORDERED: LIDOCAINE HCL 2% LOCAL INJ 5 ML SDV VIAL INJ ONE (11:09)
[2018-09-03] MEDS ORDERED: PROPOFOL IV EMULSION 10 MG/ML 50 ML VIAL ONE (11:09)
[2018-09-03] MEDS ORDERED: FENTANYL CITRATE/PF 100MCG/2 ML INJ ONE (11:31)
[2018-09-03 11:51] LABS: HEMATOCRIT 26.5 % (38.2-49.6); HEMOGLOBIN 8.4 g/dL (14.0-18.0)
--- NOTE | 2018-09-03 12:00 | NUR ---
TRIED TO DO TAP WATER ENEMA PER THE ORDER WITH CHARGE NURSE. PT IS COMBATIVE AND REFUSED ENEMA. PT HIT ON CHARGE NURSE STOMACH. INFORMED DR Trixie HAYES THE SAME. OKAY TO NOTIFY THE SON PER DR. Trixie HAYES.
--- NOTE | 2018-09-03 13:00 | NUR ---
CALLED SON AND LEFT A MESSAGE
--- NOTE | 2018-09-03 16:00 | NUR ---
TAP WATER ENEMA GIVEN WITH GOOD RESULT. INFORMED DR. HAYES.
--- NOTE | 2018-09-03 17:55 | NUR ---
PT WENT FOR PROCEDURE IN SAFE CONDITION
--- NOTE | 2018-09-03 19:00 | NUR ---
SHIFT REPORT GIVEN TO BELT CLEANER RN.
[2018-09-03] MEDS ORDERED: CYANOCOBALAMIN INJ 1,000 MCG/ML VIAL IM ONE (20:30)
--- NOTE | 2018-09-03 20:40 | NUR ---
patient returned from procedure.
[2018-09-03] MEDS: IRON SUCROSE 100 MG in SODIUM CHLORIDE 0.9% 100 ML 100 ML IV SCH (21:01)
[2018-09-03] MEDS: ATORVASTATIN 40 MG TAB PO SCH (21:24)
[2018-09-03] MEDS: MEMANTINE 10 MG TAB PO SCH (21:24)
[2018-09-04] VITALS (9 sets, daily range): BP systolic 117–174; BP diastolic 60–95
--- NOTE | 2018-09-04 02:20 | Operative Report ---
DATE OF PROCEDURE: 09/03/2018 SURGEON: Faisal Freeman MD PROCEDURE: Colonoscopy with fulguration of AVMs. INDICATIONS FOR PROCEDURE: Anemia. MEDICATION: The patient was done under MAC, please see anesthesiologist's note. PROCEDURE IN DETAIL: With the patient in the left lateral decubitus position, flexible fiberoptic Olympus colonoscope was inserted into the rectum with ease and advanced all the way to the cecum. Prep overall was suboptimal to poor. The scope was then withdrawn slowly and several arteriovenous malformations were noted in the cecum and all were fulgurated with the APC probe with excellent hemostasis. One fulguration site was hemoclipped. The scope was then withdrawn slowly whatever was visualized and the mucosa overlying the ascending, transverse, descending, sigmoid, and rectum grossly appeared to be within normal limits. The scope was then retroflexed into the distal rectum and the area around the dentate line appeared to be within normal limits. The scope was then straightened out, it was subsequently withdrawn. The patient tolerated procedure well. IMPRESSION: 1. Prep suboptimal to poor. 2. Cecal arteriovenous malformations, fulgurated with APC probe, one fulgurated site hemoclipped x1. PLAN: Follow hemoglobin and hematocrit. Faisal Freeman MD [facility] [place] /[id number] cc: Heri Herrera MD
[2018-09-04 05:33] LABS: BASOPHILS # (AUTO) 0.1 (0.0-0.1); BASOPHILS % 0.5 % (0.0-1.0); EOSINOPHILS # (AUTO) 0.5 (0.0-0.4); HEMOGLOBIN 8.6 g/dL (14.0-18.0); LYMPHOCYTES # (AUTO) 3.2 (1.0-3.2); LYMPHOCYTES % 29.5 % (18.0-39.1); MEAN CORPUSCULAR HEMOGLOBIN 28.5 pg (28-32); MEAN CORPUSCULAR HGB CONC 33.1 g/dL (31-35); MEAN CORPUSCULAR VOLUME 86.1 fL (81-99); MONOCYTES # (AUTO) 0.6 (0.2-0.8); MONOCYTES % 5.6 % (4.4-11.3); NEUTROPHILS # (AUTO) 6.3 (2.1-6.9); PLATELET COUNT 369 x10e3/uL (140-360); RED BLOOD COUNT 3.02 x10e6/uL (4.3-5.7); RED CELL DISTRIBUTION WIDTH 16.1 % (11.7-14.4)
[2018-09-04 05:58] LABS: ALANINE AMINOTRANSFERASE 15 IU/L (0-55); ALBUMIN 3.1 g/dL (3.5-5.0); ALBUMIN/GLOBULIN RATIO 1.4 (0.8-2.0); ALKALINE PHOSPHATASE 88 IU/L (40-150); ANION GAP 10.9 mmol/L (8-16); BLOOD UREA NITROGEN 29 mg/dL (7-26); BUN/CREATININE RATIO 32 (6-25); CALCIUM 9.1 mg/dL (8.4-10.2); CARBON DIOXIDE 25 mmol/L (22-29); CHLORIDE 105 mmol/L (98-107); EST GLOMERULAR FILTRATION RATE > 60 ML/MIN (60-); GLUCOSE 94 mg/dL (74-118); POTASSIUM 3.9 mmol/L (3.5-5.1); SODIUM 137 mmol/L (136-145)
--- NOTE | 2018-09-04 07:00 | NUR ---
RECEIVED BEDSIDE SHIFT REPORT FROM MAJOR SALES ASSOCIATE RN. PT AAOX1. BED AT LOWEST POSITION AND LOCKED. SIDE RAILS UP X 2. CALL CASIANO WITH IN REACH. BED ALARM IS ON. SITTER AT BEDSIDE. PT DENIES NEEDS AT THIS TIME.
[2018-09-04] MEDS: INSULIN REGULAR, HUMAN 100 UNIT/1 ML 3ML VIAL SQ SCH ×4 (07:30→21:14)
[2018-09-04] MEDS: TAMSULOSIN HCL 0.4 MG CAP PO SCH (08:15)
[2018-09-04] MEDS: PANTOPRAZOLE SOD 40 MG TABEC PO SCH (08:15)
[2018-09-04] MEDS: HYDRALAZINE HCL 25 MG TAB PO SCH ×3 (08:15→21:12)
[2018-09-04] MEDS: OXYBUTYNIN CHLORIDE XL 5 MG TAB PO SCH ×2 (08:16→17:14)
[2018-09-04] MEDS: LEVETIRACETAM 500 MG TAB PO SCH ×2 (08:16→17:14)
[2018-09-04] MEDS: AMLODIPINE BESYLATE 5 MG TAB PO SCH (08:17)
[2018-09-04] MEDS: CARVEDILOL 3.125 MG TAB PO SCH ×2 (08:17→17:14)
[2018-09-04] MEDS: FUROSEMIDE 20 MG TAB PO SCH (08:18)
[2018-09-04] MEDS: CARBAMAZEPINE 200 MG TAB PO SCH ×2 (08:18→17:14)
[2018-09-04] MEDS: LISINOPRIL 10 MG TAB PO SCH (08:19)
[2018-09-04] MEDS: GLIMEPIRIDE 2 MG TAB PO SCH (08:19)
[2018-09-04] MEDS: SERTRALINE HCL 50 MG TAB PO SCH (08:19)
[2018-09-04] MEDS: CYANOCOBALAMIN INJ 1,000 MCG/ML VIAL IM SCH (08:27)
--- NOTE | 2018-09-04 13:07 | NUR ---
DR KAY AT BEDSIDE TO SEE THE PT. CANCELLED OCCULT BLOOD STOOL TEST PER THE
--- NOTE | 2018-09-04 19:00 | NUR ---
BEDSIDE SHIFT REPORT GIVEN TO CONSERVATION ASSISTANT RN. PT DENIES NEEDS AT THIS TIME. SITTER AT BEDSIDE.
[2018-09-04] MEDS: IRON SUCROSE 100 MG in SODIUM CHLORIDE 0.9% 100 ML 100 ML IV SCH (19:59)
[2018-09-04] MEDS: ATORVASTATIN 40 MG TAB PO SCH (21:12)
[2018-09-04] MEDS: MEMANTINE 10 MG TAB PO SCH (21:12)
[2018-09-05] VITALS (7 sets, daily range): BP systolic 102–145; BP diastolic 50–64
[2018-09-05 05:09] LABS: BASOPHILS # (AUTO) 0.1 (0.0-0.1); BASOPHILS % 0.5 % (0.0-1.0); EOSINOPHILS # (AUTO) 0.6 (0.0-0.4); HEMATOCRIT 25.3 % (38.2-49.6); HEMOGLOBIN 8.1 g/dL (14.0-18.0); LYMPHOCYTES # (AUTO) 2.7 (1.0-3.2); LYMPHOCYTES % 24.2 % (18.0-39.1); MEAN CORPUSCULAR HEMOGLOBIN 28.1 pg (28-32); MEAN CORPUSCULAR VOLUME 87.8 fL (81-99); MONOCYTES # (AUTO) 0.7 (0.2-0.8); MONOCYTES % 6.6 % (4.4-11.3); NEUTROPHILS # (AUTO) 7.1 (2.1-6.9); NEUTROPHILS % 63.4 % (38.7-80.0); PLATELET COUNT 347 x10e3/uL (140-360); RED BLOOD COUNT 2.88 x10e6/uL (4.3-5.7); RED CELL DISTRIBUTION WIDTH 15.9 % (11.7-14.4)
[2018-09-05 05:34] LABS: ANION GAP 10.3 mmol/L (8-16); BLOOD UREA NITROGEN 25 mg/dL (7-26); BUN/CREATININE RATIO 25 (6-25); CARBON DIOXIDE 24 mmol/L (22-29); CHLORIDE 102 mmol/L (98-107); EST GLOMERULAR FILTRATION RATE > 60 ML/MIN (60-); GLUCOSE 91 mg/dL (74-118); MAGNESIUM 1.8 MG/DL (1.3-2.1); POTASSIUM 4.3 mmol/L (3.5-5.1); SODIUM 132 mmol/L (136-145)
--- NOTE | 2018-09-05 07:02 | NUR ---
Received patient semi fowlers position, side rails upx2, call light within reach, bed alarm on, sitter at bedside. Resting with eyes closed. Arousable to verbal stimuli. Respirations even and unlabored. Will continue to monitor.
[2018-09-05] MEDS: INSULIN REGULAR, HUMAN 100 UNIT/1 ML 3ML VIAL SQ SCH ×3 (07:30→16:21)
--- NOTE | 2018-09-05 08:48 | NUR ---
SPOKE WITH ISMAEL BOONE IN MEETING LEFT MESSAGE WITH MARIA EUGENIA GARCIA TO PLEASE CALL BACK WITH INSTRUCTIONS TO RETURN PT.
[2018-09-05] MEDS: SERTRALINE HCL 50 MG TAB PO SCH (09:00)
[2018-09-05] MEDS: LEVETIRACETAM 500 MG TAB PO SCH ×2 (09:00→16:20)
[2018-09-05] MEDS: PANTOPRAZOLE SOD 40 MG TABEC PO SCH (09:00)
[2018-09-05] MEDS: FUROSEMIDE 20 MG TAB PO SCH (09:00)
[2018-09-05] MEDS: OXYBUTYNIN CHLORIDE XL 5 MG TAB PO SCH ×2 (09:00→16:20)
[2018-09-05] MEDS: CARBAMAZEPINE 200 MG TAB PO SCH ×2 (09:00→16:20)
[2018-09-05] MEDS: TAMSULOSIN HCL 0.4 MG CAP PO SCH (09:00)
[2018-09-05] MEDS: GLIMEPIRIDE 2 MG TAB PO SCH (09:01)
[2018-09-05] MEDS: HYDRALAZINE HCL 25 MG TAB PO SCH ×2 (09:01→15:00)
[2018-09-05] MEDS: CYANOCOBALAMIN INJ 1,000 MCG/ML VIAL IM SCH (09:01)
[2018-09-05] MEDS: CARVEDILOL 3.125 MG TAB PO SCH ×2 (09:01→16:06)
--- NOTE | 2018-09-05 10:44 | NUR ---
WOUND CARE CONSULTATION - INITIAL EVALUATION Patient admitted from Home to ER for Anemia. LABS: WBC11.16 HGB8.1 HCT25.3 NEUT%63.4 GLU94 ALB3.1 WC Consulted for Sacral/ Mid gluteal redness evaluation. Patient Visit: Patient confused requesting roast beef sandwiches, combative. Diapered Heels Intact. No Pressure Ulcers. Turned Left at time of visit. Presents with Mid-Gluteal Blanchable redness. No Sacral wound noted. No open skin. Patient guards area, attempts to hit/ strike staff. Could benefit from barrier creams. No Pressure ulcers identified. IMPRESSION: Blanchable Erythema- Incontinence Related. RECOMMENDATION: 1. Mid-Gluteal Fold - Incontinence Rel. Dermatitis - Wash area with mild soap and pat dry thoroughly - Apply [place] cream and Cover with Allevyn Foam Dressing Daily and PRN Soiling 2. Turn and Reposition every 2 hours using turning clock schedule 3. Keep HOB at no greater than 30 degrees 4. Continue Alternating Pressure Air Mattress 5. Continue Strict PUP. 6. Offload Heels with Pillows while in bed. Thank you for consulting with Wound Care. Addendum: 09/05/18 at 1053 by Fermin Alvarado RN Amended: Links added.
--- NOTE | 2018-09-05 11:08 | NUR ---
SPOKE WITH AA AT [facility] NEED TO FAX UPDATED CLINICALS TO START TRANSFER PROCESS. FAXING TO [phone]
[2018-09-05] MEDS: AMLODIPINE BESYLATE 5 MG TAB PO SCH (11:40)
[2018-09-05] MEDS: LISINOPRIL 10 MG TAB PO SCH (11:41)
--- NOTE | 2018-09-05 14:55 | NUR ---
Nutrition Screen Note RD Recommendation for Physician: - Continue current diet Plan of Care: RD following, monitoring for tolerance and adequacy Nutrition reason for involvement: Early LOS Primary Diagnose(s): anemia, psychosis, upper GIB PMH: dementia, DM, HTN, GERD Ht: 68 in Wt: 171.25 lb BMI: 26 kg/m2 IBW: [address] Assessment: (09/05) 78 YOM admitted from [place] for GIB, anemia, and upper GIB. Pt seen today for LOS. Pt discussed during am rounds, s/p EGD yesterday showing esophagitis and gastritis as well as colonoscopy with cautery and clipping. Pt pending return to [place]. Unable to obtain hx from pt due to mentation. Pt with 100% meal intake. No pressure ulcers. Multiple BMs yesterday. Chart reviewed. Labs and meds reviewed. Will monitor and continue to follow. Current Diet: 1800 ADA, GI Soft Malnutrition Evaluation (09/05/18) The patient does not meet criteria for a specified degree of malnutrition at this time. Will re-evaluate at follow-up as appropriate. Diet Education Needs Assessment: Diet education not indicated, [place] pt with dementia. Nutrition Care Level: Low Signed: Jadyn Aguayo RD, LD, CNSC
--- NOTE | 2018-09-05 14:59 | NUR ---
CHECKED WITH [facility] ABOUT REFERRAL, NO UPDATE YET. THEY ARE ASKING IF PATIENT NEEDS TO GO TO A LTAC FOR TRANSFUSION, EXPLAINED THAT A TRANSFUSION IS NOT STRIP CATCHER APPROPRIATE. WAITING ON RESPONSE.
--- NOTE | 2018-09-05 16:04 | NUR ---
SPOKE WITH MELY AT [facility] PT [facility], FILLED OUT RTF TO RETURN [facility] TO [facility] [address] [place] [address], CALL REPORT TO ABDIEL AT [phone]. CALLED SON JYOTHI ALY EDUCATED ABOUT IMM DID VERBAL CONSENT VIA PHONE FOR IMM TRANSPORT AND RETURN TO [facility]. [facility] WILL OBTAIN THE WARRANT FOR THEIR SERVICES.
--- NOTE | 2018-09-05 16:12 | NUR ---
Left hand IV discontinued. 2x2 gauze and tape placed. Taken via stretcher by [facility]. AAOX2 to person, place. Respirations even and unlabored. 16F soares draining clear yellow urine. Transfer package given to [facility]. No personal belongings in patient's room. Addendum: 09/05/18 at 1943 by CHELY NUGENT RN error
--- NOTE | 2018-09-05 16:25 | NUR ---
aware patient has been accepted to [facility]. Per "okay to transfer once cleared by Dr.M. Freeman"
--- NOTE | 2018-09-05 16:35 | NUR ---
Patient cleared by Dr.M. Freeman to transfer to [facility]
--- NOTE | 2018-09-05 16:38 | NUR ---
Report called to [facility] and given to katina Noriega RN of patient's status. Aware patient to be discharged with rodger.
--- NOTE | 2018-09-05 16:50 | NUR ---
Notified Nithin Puentes of order to transfer patient to [facility]. Provided patient's son with Dr.Haddad Marcum office number per request.
--- NOTE | 2018-09-05 18:12 | NUR ---
Left hand IV discontinued. 2x2 gauze and tape placed. Taken via stretcher by [facility]. AAOX2 to person, place. Respirations even and unlabored. 16F soares draining clear yellow urine. Transfer package given to [facility]. No personal belongings in patient's room.
--- NOTE | 2018-09-06 03:12 | Discharge Summary ---
HOSPITAL COURSE: Mr. Lopez is an 78-year-old patient came from a Psych Facility. He has history of hypertension, diabetes, dementia, BPH, and psychosis, admitted to the hospital with dark stools and anemia. EGD showed esophagitis and gastritis. Colonoscopy showed AV malformation. He got fulguration of the lesions. PHYSICAL EXAMINATION: GENERAL: Today, he is awake, he is alert. VITAL SIGNS: Temperature is 98.8 and blood pressure 116/55. HEART: Regular rate. LUNGS: Clear to auscultation. ABDOMEN: Soft. LABORATORY DATA: On the blood work; white count is 11.16, hemoglobin is 8.1, and hematocrit is 25.3. Potassium 4.3, creatinine 1.0, glucose is 91, and urine culture showed no growth. ASSESSMENT: 1. Acute anemia secondary to gastrointestinal bleed. 2. Positive stool guaiac secondary to lower gastrointestinal bleed. 3. 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 4. Hypertension. 5. Diabetes type 2. 6. Seizure disorder. 7. Hyperlipidemia. 8. Psychosis with some suicidal ideation. 9. History of cerebrovascular accident. 10. Leukocytosis getting better. PLAN: At present time, his hemoglobin and hematocrit has been stable for the last three days, so no signs of recurrent bleeding, so the plan is to discharge the patient back to the Psych Facility and continue to monitor hemoglobin and hematocrit and monitor for any recurrent bleeding. Continue all his medications. Please see home medication reconciliation list. All this was discussed with the patient and nurse. All questions were answered to satisfaction. MD WONG Singleton/DANNY /[id number]
== END 2018-09-05 18:12 | DRG 377 ==
LOC: ER 23:43 → ERHOLD 08-31 01:36 → MED/SURG2 08-31 16:00
PROVIDERS: ADMIT Internal Medicine; ATTEND Internal Medicine
PROC: 30233N1 Transfusion of Nonautologous Red Blood Cells into Peripheral Vein, Percutaneous Approach (ICD-10-PCS; 2018-08-31)
PROC: 0DJ08ZZ Inspection of Upper Intestinal Tract, Via Natural or Artificial Opening Endoscopic (ICD-10-PCS; 2018-09-01)
PROC: 0D5H8ZZ Destruction of Cecum, Via Natural or Artificial Opening Endoscopic (ICD-10-PCS; principal; 2018-09-03 19:07)
DX: K55.21 Angiodysplasia of colon with hemorrhage (principal); I63.9 Cerebral infarction, unspecified; N17.9 Acute kidney failure, unspecified; D62 Acute posthemorrhagic anemia; I10 Essential (primary) hypertension; K21.9 Gastro-esophageal reflux disease without esophagitis; R41.0 Disorientation, unspecified; G40.909 Epilepsy, unspecified, not intractable, without status epilepticus; F29 Unspecified psychosis not due to a substance or known physiological condition; Z86.73 Personal history of transient ischemic attack (TIA), and cerebral infarction without residual deficits; N40.0 Benign prostatic hyperplasia without lower urinary tract symptoms; E11.65 Type 2 diabetes mellitus with hyperglycemia
CPT/HCPCS: 36415; 43239; 44391; 80048; 80053; 81001; 82607; 82728; 82746; 82948; 83540; 83735; 84466; 85014; 85018; 85025; 85045; 86850; 86900; 86920; 87086; 99285; J1200; J1756; J1940; J2001; J3420; J3430; J7042; J7050; P9016